=== PATIENT | male | born 1955 | race Caucasian/White ===

== ENCOUNTER 2020-03-19 13:16 | Inpatient (IN) | payer OTHER ==
[~2020-03-19] VITALS: Ht 185.4 cm; Wt 66.8 kg
[2020-03-19 14:01] LABS: BASO % 0.3 % (0.0-1.0); EOS # 0.1 10^3/uL (0.0-0.5); EOS % 1.5 % (0.0-3.0); HEMATOCRIT 36.5 % (42.0-52.0); HEMOGLOBIN 12.2 g/dl (13.5-17.5); LYMPH # 1.2 10^3/uL (1.5-5.0); LYMPH % 13.9 % (24.0-44.0); MEAN CORPUSCULAR HEMOGLOBIN 31.5 pg (27.0-33.0); MEAN CORPUSCULAR HGB CONC 33.4 g/dl (32.0-36.5); MEAN CORPUSCULAR VOLUME 94.3 fl (80.0-96.0); MONO # 0.5 10^3/uL (0.0-0.8); MONO % 5.4 % (0.0-5.0); NEUTROPHILS # 6.9 10^3/uL (1.5-8.5); NEUTROPHILS % 78.7 % (36.0-66.0); PLATELET COUNT, AUTOMATED 316 10^3/uL (150-450); RED BLOOD COUNT 3.87 10^6/uL (4.30-6.10); WHITE BLOOD COUNT 8.7 10^3/uL (4.0-10.0)
[2020-03-19] MEDS ORDERED: LORazepam 2 MG/ML VIAL IV STA ×2 (14:22→16:46)
[2020-03-19 14:32] LABS: ACETAMINOPHEN LEVEL < 2.0 UG/ML (10.0-30.0); ALBUMIN 3.5 GM/DL (3.2-5.2); ALT/SGPT 28 U/L (12-78); BILIRUBIN,DIRECT 0.2 MG/DL (0.0-0.2); BILIRUBIN,TOTAL 0.7 MG/DL (0.2-1.0); BLOOD UREA NITROGEN 21 MG/DL (7-18); CARBON DIOXIDE LEVEL 28 MEQ/L (21-32); CHLORIDE LEVEL 109 MEQ/L (98-107); CK-MB VALUE MASS 5.6 NG/ML (<3.6); CPK CREATINE PHOSPHOKINASE 102 U/L (39-308); CREATININE FOR GFR 0.63 MG/DL (0.70-1.30); ETHYL ALCOHOL (ETHANOL) < 0.003 % (0.000-0.010); GLOMERULAR FILTRATION RATE > 60.0 (>49); GLUCOSE, FASTING 101 MG/DL (70-100); MB/CK RELATIVE INDEX 5.49 (< OR =4); POTASSIUM SERUM 3.9 MEQ/L (3.5-5.1); SALICYLATE LEVEL < 1.7 MG/DL (5.0-30.0); SODIUM LEVEL 140 MEQ/L (136-145); THYROID STIMULATING HORMONE 0.633 uIU/ML (0.358-3.740); TOTAL PROTEIN 6.5 GM/DL (6.4-8.2); TROPONIN I < 0.02 NG/ML (< 0.10)
[2020-03-19 17:14] LABS: AMPHETAMINES LEVEL URINE POSITIVE (NEGATIVE); BARBITURATES URINE NEGATIVE (NEGATIVE); BENZODIAZEPINES URINE NEGATIVE (NEGATIVE); CANNABINOIDS URINE NEGATIVE (NEGATIVE); COCAINE METABOLITE URINE NEGATIVE (NEGATIVE); METHADONE URINE NEGATIVE (NEGATIVE); OPIATES URINE NEGATIVE (NEGATIVE); PHENCYCLIDINE URINE NEGATIVE (NEGATIVE)
--- NOTE | 2020-03-19 17:31 | REPVR ---
PROCEDURE INFORMATION: Exam: MR Head Without Contrast Exam date and time: 03/19/2020 4:41 PM Age: 64 years old Clinical indication: Alteration of consciousness and altered mental status/memory loss; Stupor; Confusion or disorientation; Patient HX: Severe AMS, best images due to pts inability to follow and understand instructions, multiple repeats attempted and PT was medicated multiple times. PT refuses further scanning at this time; Additional info: CVA TECHNIQUE: Imaging protocol: MR of the head without contrast. COMPARISON: CT Head without contrast 03/19/2020 1:35 PM FINDINGS: Limitations: Examination is markedly limited by motion artifact. Brain: No definite restricted diffusion to suggest acute infarct. No evidence of acute intracranial hemorrhage or extra-axial fluid collection. No evidence of mass effect or midline shift. Ventricles: No ventriculomegaly. Bones/joints: Unremarkable. Sinuses: Unremarkable. Mastoid air cells: No mastoid effusion. Orbits: Unremarkable. Soft tissues: Unremarkable. IMPRESSION: No definite MR evidence of acute infarct. Examination limited by motion artifact. Electronically signed by: Dheeraj Savage On 03/19/2020 17:31:09 PM
--- NOTE | 2020-03-19 17:35 | REPVR ---
PROCEDURE INFORMATION: Exam: MR Angiogram Head Without Contrast, Arteries Exam date and time: 03/19/2020 4:41 PM Age: 64 years old Clinical indication: Cognitive deficit; Altered mental status; Patient HX: Severe AMS, best images due to pts inability to follow and understand instructions, multiple repeats attempted and PT was medicated multiple times. PT refuses further scanning at this time; Additional info: CVA TECHNIQUE: Imaging protocol: MR angiogram head without contrast. Exam focused on the arteries. 3D rendering (Not supervised by radiologist): MIP and/or 3D reconstructed images were created by the technologist. COMPARISON: CT Head without contrast 03/19/2020 1:35 PM FINDINGS: Limitations: Examination is markedly limited by motion artifact. Visualized portions of the ACAs are patent. Proximal aspects of the ACAs are very poorly visualized. Visualized portions of the mid to distal MCAs are patent. Proximal aspects of the MCAs are very poorly visualized. Internal carotid arteries are very poorly visualized. Basilar artery appears patent. Intracranial vertebral arteries appear patent. Posterior cerebral arteries are very poorly visualized. IMPRESSION: Markedly limited examination due to motion artifact. Visualized of portions of the intracranial arteries are patent. Electronically signed by: Dheeraj Savage On 03/19/2020 17:36:01 PM
[2020-03-19] MEDS ORDERED: ACETAMINOPHEN TAB 650MG DOSE (2X325MG) PO PRN (22:00)
[2020-03-20] VITALS (11 sets, daily range): BP systolic 125–158; BP diastolic 80–90
[2020-03-20] MEDS: NS 1,000 ML IV SCH ×3 (00:48→10:22)
[2020-03-20 06:16] LABS: HEMATOCRIT 43.1 % (42.0-52.0); HEMOGLOBIN 13.9 g/dl (13.5-17.5); MEAN CORPUSCULAR HEMOGLOBIN 30.5 pg (27.0-33.0); MEAN CORPUSCULAR HGB CONC 32.3 g/dl (32.0-36.5); MEAN CORPUSCULAR VOLUME 94.7 fl (80.0-96.0); PLATELET COUNT, AUTOMATED 329 10^3/uL (150-450); RED BLOOD COUNT 4.55 10^6/uL (4.30-6.10); WHITE BLOOD COUNT 8.1 10^3/uL (4.0-10.0)
[2020-03-20 06:39] LABS: ALBUMIN 3.3 GM/DL (3.2-5.2); ALT/SGPT 23 U/L (12-78); BILIRUBIN,TOTAL 0.9 MG/DL (0.2-1.0); BLOOD UREA NITROGEN 16 MG/DL (7-18); CALCIUM LEVEL 8.6 MG/DL (8.8-10.2); CARBON DIOXIDE LEVEL 25 MEQ/L (21-32); CHLORIDE LEVEL 110 MEQ/L (98-107); CREATININE FOR GFR 0.62 MG/DL (0.70-1.30); GLOMERULAR FILTRATION RATE > 60.0 (>49); GLUCOSE, FASTING 82 MG/DL (70-100); MAGNESIUM LEVEL 2.2 MG/DL (1.8-2.4); POTASSIUM SERUM 3.9 MEQ/L (3.5-5.1); SODIUM LEVEL 141 MEQ/L (136-145); TOTAL PROTEIN 6.2 GM/DL (6.4-8.2)
[2020-03-20] MEDS ORDERED: LORazepam 1 MG TAB PO SCH (09:00)
[2020-03-20] MEDS: LORazepam 2 MG TAB PO PRN ×4 (10:21→20:49)
--- NOTE | 2020-03-20 12:44 | MHCRPDOC ---
[facility] Consultation Consultation DATE OF CONSULTATION: 03/20/20 HPI: Patient I met with is highly distorted and confused. He reportedly was brought in after having methamphetamine intoxication. Reported collateral information gained from girlfriend. Reports increasing bizarre behavior during the last couple of days. Patients scores have been quite high. MEDICAL HISTORY: Past medical and psychiatric history is unknown. FAMILY HISTORY: Family medical history is unknown. SOCIAL HISTORY - LIVING SITUATION: Reportedly, lives with girlfriend and has an ex-. SOCIAL HISTORY - SMOKING: Appears to use methamphetamine, unclear if he uses alcohol. Objective Appearance: Bizzare. Sitting in bed. Poor hygiene. In his underwear. Cognition: Incoherent. Grossly impaired. Doesnt know who the president is. Believes its the 1990s. Unable to engage in any reasonable discussion. Judgement: Poor. Insight: Poor. Assessment F05 Delirium due to known physiological condition F15.921 Other stimulant use, unspecified with intoxication delirium Plan Recommended continued observation and supportive treatment, especially with protocol as Im concerned that patient could have alcohol or similar withdrawals. Patients symptoms do not align with psychotic disorder and should be treated as encephalopathy secondary to substance before being assumed to be such. In terms of his capacity at this time, I do not believe he is at capacity to leave AM due to his robyn and overt delirium. Hes confused and does not have any sense of memory, thus is not able to remember any critical information related to his health care or even his presentation. Additionally, he does not appear to be able to manipulate information rationally or have any ability to abstract due to his confused state at this time, likely secondary to delirium. At this time, I would postulate that he does not have the capacity due to these factors for the name and discharge at this time; however, this is subject to change. He does attempt to leave [facility]. 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 We will follow up intermittently. Vital Signs Vital Signs Date Time Temp Pulse Resp B/P (MAP) Pulse Ox O2 Delivery O2 Flow Rate FiO2 03/20/20 12:40 100 152/90 03/20/20 12:00 98.8 18 100 Room Air Laboratory Data 24H Labs Laboratory Tests 2 03/19/20 13:38: Immature Granulocyte % (Auto) 0.2, Neutrophils (%) (Auto) 78.7H, Lymphocytes (%) (Auto) 13.9L, Monocytes (%) (Auto) 5.4H, Eosinophils (%) (Auto) 1.5, Basophils (%) (Auto) 0.3, Neutrophils # (Auto) 6.9, Lymphocytes # (Auto) 1.2L, Monocytes # (Auto) 0.5, Eosinophils # (Auto) 0.1, Basophils # (Auto) 0.0, Nucleated Red Blood Cells % (auto) 0.0, Anion Gap 3L, Glomerular Filtration Rate > 60.0, Calcium Level 9.0, Total Bilirubin 0.7, Direct Bilirubin 0.2, Aspartate Amino Transf (AST/SGOT) 17, Alanine Aminotransferase (ALT/SGPT) 28, Alkaline Phosphatase 101, Total Creatine Kinase 102, Creatine Kinase MB 5.6H, Creatine Kinase MB Relative Index 5.49H, Troponin I < 0.02, Total Protein 6.5, Albumin 3.5, Albumin/Globulin Ratio 1.2, Thyroid Stimulating Hormone (TSH) 0.633, Salicylates Level < 1.7L, Acetaminophen Level < 2.0L, Ethyl Alcohol Level < 0 .003 03/19/20 15:33: Urine Opiates Screen NEGATIVE, Urine Methadone Screen NEGATIVE, Urine Barbiturates Screen NEGATIVE, Urine Phencyclidine Screen NEGATIVE, Urine Amphetamines Screen POSITIVEH, Urine Benzodiazepines Screen NEGATIVE, Urine Cocaine Metabolite Screen NEGATIVE, Urine Cannabinoids Screen NEGATIVE 03/20/20 05:45: Nucleated Red Blood Cells % (auto) 0.0, Anion Gap 6L, Glomerular Filtration Rate > 60.0, Calcium Level 8.6L, Total Bilirubin 0.9, Aspartate Amino Transf (AST/SGOT) 18, Alanine Aminotransferase (ALT/SGPT) 23, Alkaline Phosphatase 103, Total Protein 6.2L, Albumin 3.3, Albumin/Globulin Ratio 1.1, Magnesium Level 2.2 Home Medications Current Medications Current Medications Medications (Trade) Dose Ordered Sig/Risa Route PRN Reason Start Time Stop Time Status Last Admin Dose Admin Acetaminophen (Tylenol Tab) 650 mg Q4HP PRN PO SYMPTOM RELIEF 03/19/20 22:00 Home Med (Med Rec Complete!) ASDIRECTED XX 03/19/20 23:00 03/19/20 23:00 DC Lorazepam (Ativan) 1 mg BID PO 03/20/20 09:00 03/20/20 09:19 Lorazepam (Ativan) 1 mg STAT STAT IV 03/19/20 16:46 03/19/20 16:47 DC 03/19/20 17:00 Lorazepam (Ativan) 2 mg ASDIRECTED PRN PO SEE PROTOCOL 03/20/20 09:15 03/20/20 12:38 Lorazepam (Ativan) 2 mg STAT STAT IV 03/19/20 14:22 03/19/20 14:23 DC 03/19/20 14:38 Sodium Chloride 1,000 ml @ 100 mls/hr Q10H IV 03/19/20 22:00 03/20/20 10:22 No Active Prescriptions or Reported Meds Allergies Coded Allergies: No Known Allergies (Verified Allergy, Unknown, 03/19/20) ENRICO JIMÉNEZ DO Mar 20, 2020 12:43
[2020-03-20] MEDS ORDERED: LORazepam 2 MG/ML VIAL IV PRN (13:00)
--- NOTE | 2020-03-20 14:11 | IPNPDOC ---
Text Note Date of Service The patient was seen on 03/20/20. NOTE Pt was seen and examined by me this morning with the sitter in the room. He s eemed to be comfortable but with no insight of what is going on. PHYSICAL EXAMINATION: - General: tangential in conversation but directable, speaking in full sentences, AAOx 0 - HEENT: Atraumatic, PERRLA - CVS: normal rhythm - Lungs: Good air entry bilaterally, No appreciable wheezing / rales / rhonchi - Abdomen: Soft, Non-distended, Non-tender - Extremities: No extremity swelling, limbs intact - Skin: Warm - Neuro: Diffuse tremors. Normal strength and sensory throughout. CN II-XII grossly intact. Normal reflex. LABORATORY DATA: See below. IMAGING: none MICROBIOLOGY: Please see below. ASSESSMENT AND PLAN: 1. AMS: Likely drug abuse related. he is not been able to provide a good hi story, seems like he was acting different for the last few weeks as per GF as well. MRI MRA was petar which showed no stroke. UDS was positive for Amphitamines. Psyc has been consulted. he has been put on ativan PRN and q8 1mg scheduled for agitation . Will follow up with psychiatry . 1:1 observation. Monitor on telemetry 2. AMS: other metabolic causes work up initiated . DVT ppx: Lovenox Code status: Full code VS,Fishbone, I+O VS, Fishbone, I+O Laboratory Tests 03/20/20 05:45 Vital Signs Date Time Temp Pulse Resp B/P (MAP) Pulse Ox O2 Delivery O2 Flow Rate FiO2 03/20/20 12:40 100 152/90 03/20/20 12:00 98.8 18 100 Room Air I&O- Last 24 Hours up to 6 AM 03/20/20 06:00 Intake Total 500 ml Balance 500 ml NELSON ARANA MD Mar 20, 2020 14:11
[2020-03-20] MEDS: LORazepam 2 MG/ML VIAL IV SCH (16:00)
[2020-03-21] VITALS (9 sets, daily range): BP systolic 115–161; BP diastolic 68–97
[2020-03-21] MEDS: LORazepam 2 MG/ML VIAL IV SCH ×3 (00:40→16:48)
[2020-03-21] MEDS: THIAMINE 200MG/2ML VIAL (J3411 PER 100MG) IM SCH (09:00)
--- NOTE | 2020-03-21 10:11 | IPNPDOC ---
Text Note Date of Service The patient was seen on 03/21/20. NOTE Pt was seen and examined by me this morning with the sitter in the room. He seemed to be comfortable but with no insight of what is going on. PHYSICAL EXAMINATION: - General: tangential in conversation but directable, speaking in full sentences, AAOx 0 - HEENT: Atraumatic, PERRLA - CVS: normal rhythm - Lungs: Good air entry bilaterally, No appreciable wheezing / rales / rhonchi - Abdomen: Soft, Non-distended, Non-tender - Extremities: No extremity swelling, limbs intact - Skin: Warm - Neuro: Diffuse tremors. Normal strength and sensory throughout. CN II-XII grossly intact. Normal reflex. LABORATORY DATA: See below. IMAGING: none MICROBIOLOGY: Please see below. ASSESSMENT AND PLAN: 1. AMS:Improving. Likely drug abuse related. he is not been able to provide a good history, seems like he was acting different for the last few weeks as per GF as well. MRI MRA was petar which showed no stroke. UDS was positive for Amphitamines. Psyc has been consulted and as per them this is substance abuse metabolic enccephalopathy . he has been put on ativan PRN and q8 1mg scheduled for agitation . Will follow up with psychiatry . 1:1 observation. Monitor on telemetry 2. AMS: other metabolic causes work up initiated . DVT ppx: Lovenox Code status: Full code VS,Fishbone, I+O VS, Fishbone, I+O Vital Signs Date Time Temp Pulse Resp B/P (MAP) Pulse Ox O2 Delivery O2 Flow Rate FiO2 03/21/20 08:00 97.9 100 18 115/73 (87) 97 Room Air I&O- Last 24 Hours up to 6 AM 03/21/20 06:00 Intake Total 840 ml Output Total 675 ml Balance 165 ml NELSON ARANA MD Mar 21, 2020 10:11
[2020-03-21] MEDS: LORazepam 2 MG TAB PO PRN ×3 (11:46→19:33)
[2020-03-21 13:16] LABS: ALBUMIN 3.5 GM/DL (3.2-5.2); ALT/SGPT 27 U/L (12-78); BILIRUBIN,TOTAL 0.5 MG/DL (0.2-1.0); BLOOD UREA NITROGEN 20 MG/DL (7-18); CARBON DIOXIDE LEVEL 26 MEQ/L (21-32); CHLORIDE LEVEL 108 MEQ/L (98-107); CREATININE FOR GFR 0.78 MG/DL (0.70-1.30); GLOMERULAR FILTRATION RATE > 60.0 (>49); GLUCOSE, FASTING 136 MG/DL (70-100); SODIUM LEVEL 137 MEQ/L (136-145); TOTAL PROTEIN 6.6 GM/DL (6.4-8.2); VITAMIN B12 LEVEL 688 PG/ML (247-911)
[2020-03-22] VITALS: BP 148/96
[2020-03-22] MEDS ORDERED: LORazepam 2 MG/ML VIAL As Ordered ONE ×2 (00:12→03:17)
[2020-03-22] MEDS: LORazepam 2 MG/ML VIAL IM PRN ×3 (00:17→11:09)
[2020-03-22 08:00] VITALS: BP 120/77
[2020-03-22 08:19] LABS: HEMATOCRIT 44.2 % (42.0-52.0); HEMOGLOBIN 14.4 g/dl (13.5-17.5); MEAN CORPUSCULAR HGB CONC 32.6 g/dl (32.0-36.5); MEAN CORPUSCULAR VOLUME 95.3 fl (80.0-96.0); PLATELET COUNT, AUTOMATED 358 10^3/uL (150-450); RED BLOOD COUNT 4.64 10^6/uL (4.30-6.10); WHITE BLOOD COUNT 7.9 10^3/uL (4.0-10.0)
[2020-03-22 08:20] VITALS: BP 120/77
[2020-03-22] MEDS: LORazepam 2 MG/ML VIAL IV SCH ×3 (08:25→16:57)
[2020-03-22] MEDS: THIAMINE 200MG/2ML VIAL (J3411 PER 100MG) IM SCH ×2 (08:25→13:19)
[2020-03-22 08:49] LABS: ALBUMIN 3.7 GM/DL (3.2-5.2); ALT/SGPT 26 U/L (12-78); BILIRUBIN,TOTAL 0.8 MG/DL (0.2-1.0); BLOOD UREA NITROGEN 15 MG/DL (7-18); CALCIUM LEVEL 9.1 MG/DL (8.8-10.2); CARBON DIOXIDE LEVEL 27 MEQ/L (21-32); CHLORIDE LEVEL 109 MEQ/L (98-107); CREATININE FOR GFR 0.84 MG/DL (0.70-1.30); GLOMERULAR FILTRATION RATE > 60.0 (>49); GLUCOSE, FASTING 165 MG/DL (70-100); POTASSIUM SERUM 4.2 MEQ/L (3.5-5.1); SODIUM LEVEL 142 MEQ/L (136-145); TOTAL PROTEIN 6.7 GM/DL (6.4-8.2)
--- NOTE | 2020-03-22 10:22 | IPNPDOC ---
Text Note Date of Service The patient was seen on 03/22/20. NOTE Pt was seen and examined by me this morning with the sitter in the room. He s eemed to be comfortable but with no insight of what is going on. PHYSICAL EXAMINATION: - General: tangential in conversation but directable, speaking in full sentences, AAOx 0 - HEENT: Atraumatic, PERRLA - CVS: normal rhythm - Lungs: Good air entry bilaterally, No appreciable wheezing / rales / rhonchi - Abdomen: Soft, Non-distended, Non-tender - Extremities: No extremity swelling, limbs intact - Skin: Warm - Neuro: Diffuse tremors. Normal strength and sensory throughout. CN II-XII grossly intact. Normal reflex. LABORATORY DATA: See below. IMAGING: none MICROBIOLOGY: Please see below. ASSESSMENT AND PLAN: 1. AMS: Likely drug abuse related. he is not been able to provide a good h istory, seems like he was acting different for the last few weeks as per GF as well. MRI MRA was petar which showed no stroke. UDS was positive for Amphitamines. Psyc has been consulted and as per them this is substance abuse metabolic enccephalopathy . he has been put on ativan PRN and q8 1mg scheduled for agitation . Will follow up with psychiatry .Thiamine 100 mg added. 1:1 observation. Monitor on telemetry . Will get EEG as well 2. AMS: other metabolic causes work up initiated . DVT ppx: Lovenox Code status: Full code VS,Fishbone, I+O VS, Fishbone, I+O Laboratory Tests 03/21/20 11:27 03/22/20 07:52 Vital Signs Date Time Temp Pulse Resp B/P (MAP) Pulse Ox O2 Delivery O2 Flow Rate FiO2 03/22/20 08:00 97.9 102 18 120/77 (91) 100 Room Air I&O- Last 24 Hours up to 6 AM 03/22/20 06:00 Intake Total 1680 ml Output Total 0 ml Balance 1680 ml NELSON ARANA MD Mar 22, 2020 10:22
[2020-03-22] MEDS ORDERED: LORazepam 2 MG TAB PO PRN (15:00)
[2020-03-22] MEDS ORDERED: LORazepam 2 MG/ML VIAL IV PRN (15:00)
[2020-03-22 16:00] VITALS: BP 130/74
[2020-03-22] MEDS: THIAMINE 100 MG TAB PO SCH (20:28)
[2020-03-22] MEDS ORDERED: ASPIRIN 325 MG TAB PO STA (20:51)
[2020-03-22] MEDS ORDERED: ATORVASTATIN 20 MG TAB PO SCH (21:00)
[2020-03-22] MEDS ORDERED: haloperidoL 1 MG TAB PO ONE (21:00)
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
[2020-03-22] MEDS ORDERED: THIAMINE 200MG/2ML VIAL (J3411 PER 100MG) IM ONE (23:00)
[2020-03-23] MEDS: LORazepam 2 MG/ML VIAL IV SCH ×2 (00:19→08:08)
[2020-03-23 06:00] VITALS: BP 128/79
[2020-03-23 06:47] LABS: HEMATOCRIT 40.2 % (42.0-52.0); HEMOGLOBIN 13.6 g/dl (13.5-17.5); MEAN CORPUSCULAR HEMOGLOBIN 32.1 pg (27.0-33.0); MEAN CORPUSCULAR HGB CONC 33.8 g/dl (32.0-36.5); MEAN CORPUSCULAR VOLUME 94.8 fl (80.0-96.0); PLATELET COUNT, AUTOMATED 317 10^3/uL (150-450); RED BLOOD COUNT 4.24 10^6/uL (4.30-6.10); WHITE BLOOD COUNT 8.1 10^3/uL (4.0-10.0)
[2020-03-23 07:08] LABS: ALBUMIN 3.5 GM/DL (3.2-5.2); ALT/SGPT 25 U/L (12-78); BILIRUBIN,TOTAL 1.1 MG/DL (0.2-1.0); BLOOD UREA NITROGEN 18 MG/DL (7-18); CALCIUM LEVEL 8.8 MG/DL (8.8-10.2); CARBON DIOXIDE LEVEL 30 MEQ/L (21-32); CHLORIDE LEVEL 108 MEQ/L (98-107); CREATININE FOR GFR 0.77 MG/DL (0.70-1.30); GLOMERULAR FILTRATION RATE > 60.0 (>49); GLUCOSE, FASTING 89 MG/DL (70-100); POTASSIUM SERUM 4.4 MEQ/L (3.5-5.1); SODIUM LEVEL 140 MEQ/L (136-145); TOTAL PROTEIN 6.4 GM/DL (6.4-8.2)
[2020-03-23] MEDS: THIAMINE 100 MG TAB PO SCH (08:09)
[2020-03-23] MEDS ORDERED: FOLIC ACID 1 MG TAB PO SCH (09:00)
[2020-03-23] MEDS ORDERED: ASPIRIN 81 MG ENTERIC TAB PO SCH (09:00)
[2020-03-23] MEDS ORDERED: MULTIVITAMINS/MINERALS THERAP 1 TAB PO SCH (09:00)
[2020-03-23] MEDS ORDERED: LACTULOSE 20 GM/30 ML SYRUP UD PO SCH (09:00)
[2020-03-23] MEDS ORDERED: VITMTA PO (10:31)
[2020-03-23] MEDS ORDERED: THIA100TA PO (10:31)
--- NOTE | 2020-03-23 10:36 | MHIPNPDOC ---
[facility] Progress Note Progress Note DATE OF SERVICE: 03/23/20 patient seen again, still confused but it appears to be more tangential in process, can't engage in any reasonable interview, most medical causes have been excluded, will admit to [facility] on for Unsp Psychosis. Vital Signs Vital Signs Date Time Temp Pulse Resp B/P (MAP) Pulse Ox O2 Delivery O2 Flow Rate FiO2 03/23/20 06:00 98.6 92 18 128/79 (95) 97 Room Air Laboratory Data 24H Labs Laboratory Tests 2 03/22/20 21:00: Lactic Acid Level 0.8, Ammonia 40H 03/23/20 06:05: Nucleated Red Blood Cells % (auto) 0.0, Anion Gap 2L, Glomerular Filtration Rate > 60.0, Calcium Level 8.8, Total Bilirubin 1.1H, Aspartate Amino Transf (AST/SGOT) 23, Alanine Aminotransferase (ALT/SGPT) 25, Alkaline Phosphatase 100, Total Protein 6.4, Albumin 3.5, Albumin/Globulin Ratio 1.2 CBC/BMP Laboratory Tests 03/23/20 06:05 Current Medications Current Medications Medications (Trade) Dose Ordered Sig/Risa Route PRN Reason Start Time Stop Time Status Last Admin Dose Admin Acetaminophen (Tylenol Tab) 650 mg Q4HP PRN PO SYMPTOM RELIEF 03/19/20 22:00 Aspirin (Aspirin) 325 mg STAT STAT PO 03/22/20 20:51 03/22/20 20:54 DC Aspirin (Ecotrin) 162 mg DAILY PO 03/23/20 09:00 03/23/20 09:22 DC 03/23/20 08:08 Atorvastatin Calcium (Lipitor) 20 mg DAILY@2100 PO 03/22/20 21:00 Folic Acid (Folic Acid) 1 mg DAILY PO 03/23/20 09:00 03/23/20 08:09 Home Med (Med Rec Complete!) ASDIRECTED XX 03/19/20 23:00 03/19/20 23:00 DC Lactulose (Cephulac) 15 ml TID PO 03/23/20 09:00 Lorazepam (Ativan) 1 mg BID PO 03/20/20 09:00 03/20/20 12:49 DC 03/20/20 09:19 Lorazepam (Ativan) 1 mg Q8H IV 03/20/20 16:00 03/23/20 08:42 DC 03/23/20 08:08 Lorazepam (Ativan) 1 mg Q8H PO 03/23/20 14:00 Lorazepam (Ativan) 1 mg Q8H PRN IV ANXIETY/AGITATION 03/20/20 13:00 03/20/20 16:34 DC Lorazepam (Ativan) 1 mg STAT STAT IV 03/19/20 16:46 03/19/20 16:47 DC 03/19/20 17:00 Lorazepam (Ativan) 2 mg ASDIRECTED PRN PO SEE PROTOCOL 03/20/20 09:15 03/21/20 20:24 DC 03/21/20 19:33 Lorazepam (Ativan) 2 mg ASDIRECTED PRN PO SEE PROTOCOL 03/22/20 15:00 03/22/20 16:33 DC Lorazepam (Ativan) 2 mg Q2HP PRN IM AGITATION /SEIZURES / CIWA 03/21/20 20:30 03/22/20 14:54 DC 03/22/20 11:09 Lorazepam (Ativan) 2 mg Q2HP PRN IV AGITATION /SEIZURES / CIWA 03/22/20 15:00 03/22/20 20:29 Lorazepam (Ativan) 2 mg STAT STAT IV 03/19/20 14:22 03/19/20 14:23 DC 03/19/20 14:38 Multivitamins (Theragram-M) 1 tab DAILY PO 03/23/20 09:00 03/23/20 08:09 Sodium Chloride 1,000 ml @ 100 mls/hr Q10H IV 03/19/20 22:00 03/20/20 16:34 DC 03/20/20 10:22 Thiamine HCl (Thiamine HCl) 100 mg BID PO 03/22/20 21:00 03/25/20 09:01 03/23/20 08:09 Thiamine HCl (VITAMIN B1 INJection) 100 mg DAILY IM 03/21/20 09:00 03/22/20 15:20 DC 03/22/20 13:19 Allergies Coded Allergies: No Known Allergies (Verified Allergy, Unknown, 03/19/20) ENRICO JIMÉNEZ DO Mar 23, 2020 10:36
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
[2020-03-23] MEDS ORDERED: LORazepam 1 MG TAB PO SCH (14:00)
--- NOTE | 2020-04-05 12:51 | ECGEPIP ---
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
--- NOTE | 2020-04-20 08:20 | REP ---
CHEST X-RAY: SINGLE VIEW HISTORY: Altered mental status. COMPARISON: None. FINDINGS: Lungs are well-inflated and clear. The pleural angles are sharp. Heart size is normal. EKG monitoring electrodes overlie the chest. Pulmonary vasculature is not increased. IMPRESSION: No acute disease. MTDD
--- NOTE | 2020-04-20 08:21 | REP ---
HEAD CT WITHOUT CONTRAST HISTORY: Cerebrovascular accident (CVA) . CT FINDINGS: Preliminary digital boat ride operator radiograph is unremarkable. The bony calvarium is intact. The visualized paranasal sinuses are clear. No intraorbital abnormality is appreciated. On soft tissue window settings, the lateral, 3rd, and 4th ventricular are normal in size and position. Meyer-white differentiation pattern is normal above and below the sensorium. There is no evidence of intracranial hemorrhage, mass, infarction, extra-axial fluid collection, or midline shift. IMPRESSION: Unremarkable noncontrast head CT. MTDD
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
== END 2020-03-23 12:40 | DRG 948 ==
LOC: M ED 13:16 → EDBD 13:16 → M ED INP 21:29 → ENRESERV 21:59 → M PCU 03-20 00:21 → M MS5PR 03-22 15:53 → OBSVTOIN 03-23 10:29 → UNDODISOB 03-23 12:40
PROVIDERS: ADMIT Student in an Organized Health Care Education/Training Program; ATTEND Internal Medicine
DX: R41.82 Altered mental status, unspecified (principal); F15.188 Other stimulant abuse with other stimulant-induced disorder; F17.210 Nicotine dependence, cigarettes, uncomplicated; Z79.899 Other long term (current) drug therapy; Z86.73 Personal history of transient ischemic attack (TIA), and cerebral infarction without residual deficits; Z98.1 Arthrodesis status

== ENCOUNTER 2020-03-23 10:41 | Inpatient (IN) | payer OTHER ==
[~2020-03-23 10:41] MED LIST: THIA100TA PO; VITMTA PO
[2020-03-23] MEDS ORDERED: MAALOX 30 ML SUSP *UDC PO PRN (11:30)
[2020-03-23] MEDS ORDERED: MOM 30ML SUSPENSION UDC PO PRN (11:30)
[2020-03-23] MEDS: OLANZapine ORAL DISINTEGRATING TAB 5MG PO SCH ×2 (13:51→20:46)
[2020-03-23] MEDS ORDERED: LORazepam 2 MG TAB PO STA (15:24)
[2020-03-23 17:17] VITALS: BP 142/81
--- NOTE | 2020-03-23 20:30 | MHHPEPDOC ---
[facility] History & Physical History and Physical DATE OF ADMISSION: Mar 23, 2020 at 12:41 HPI: Steve presents today for concerns regarding his psychiatric evaluation. The patient was met with today. He is still confused and unable to engage in any reasonable interview. He is distorted and unusual and bizzare. He has reportedly been quite aggressive with the nurses. The patients history is quite unknown, however his girlfriend and ex- have reported increasing bizzare behavior changes over the last several weeks. Additionally, he has tested positive for methamphetamine. Theyre unable to discuss whether they have noticed significant drug use. The patient is unable to participate any ROS due to his confused and psychotic state. Living situation: currently lives with a girlfriend last three years. from previous ex-. Substance use: is known to use methamphetamine, however recent drug use cannot be determined due to confused state. MEDICAL HISTORY: On past psychiatric history: no known past medical history of inpatient admission, suicide attempts, previous medication trials, or even psychiatric diagnosis. FAMILY HISTORY: Family history is unknown. Objective Cognition: Impaired, thinks its February 2014. Thought Form: Tangential. Confused, thinks that Augustus Parson is the president. Non-linear. Psychotic. Judgement: Poor. Insight: Poor. Assessment F29 Unspecified psychosis not due to a substance or known physiological condition F15.10 Other stimulant abuse, uncomplicated F05 Delirium due to known physiological condition Plan Patient is to be admitted to inpatient mental health under a 9.39 legal status. EEG was not able to be obtained, although could be helpful if he doesnt clear up. At this time well treat this as psychiatric as medical providers have concluded there is no current medical problems that can occur that can accurately describe his agitation and agitate affect. Treatment priorities: 1. Altered thoughts. 2. Substance use. His estimated length of stay is 3-5 days. Well begin Zyprexa 5 mg BID as most appropriate evidence-based treatment for psychosis in the setting of no previous treatment, especially on inpatient mental health. Discussed with practitioner who will be taking over the case once he reaches the inpatient unit for a warm hand off. Recommend further titration and even EEG if confusion does not resolve precipitously with treatment. Substance-induced psychosis can also include differentials with bath salts and synthetic marijuana, which have been known to cause significant psychotic episodes for long periods of time. His methamphetamine positive tox screen doesnt necessarily preclude these. Vital Signs Vital Signs Date Time Temp Pulse Resp B/P (MAP) Pulse Ox O2 Delivery O2 Flow Rate FiO2 03/23/20 17:17 98.6 98 16 142/81 (101) Medications Scheduled Multivitamins (Thera M Plus Tablet) 1 Each Tablet, 1 TAB PO DAILY Thiamine Hcl (Vitamin B-1) 100 Mg Tablet, 100 MG PO BID Allergies Coded Allergies: No Known Allergies (Verified Allergy, Unknown, 03/19/20) ENRICO JIMÉNEZ DO Mar 23, 2020 20:30
[2020-03-24 06:10] VITALS: BP 121/84
[2020-03-24] MEDS: OLANZapine ORAL DISINTEGRATING TAB 5MG PO SCH ×2 (08:30→20:55)
[2020-03-24] MEDS: OLANZapine ORAL DISINTEGRATING TAB 5MG PO PRN (09:57)
--- NOTE | 2020-03-24 10:43 | MHIPNPDOC ---
[facility] Progress Note Progress Note DATE OF SERVICE: 03/24/20 HISTORY: Patient is a 64 year old Single, Male who states he is from [place], [place]. He is able to state his name and his date of clearly and any verbal communication after becomes inaudible. He is admitted to Inpatient Mental Health for Confusion and Psychotic Symptoms. VITAL SIGNS: See below. NEW TEST RESULTS: CURRENT MEDICATIONS: See below. MENTAL STATUS EXAMINATION: Patient is a 64-year old male, who is very confused today. He has poor communication, he is disheveled and appears to be in mild delirium Speech: Is Clear and Audible with the question, what is your name and date of ? Patient is not able to make a clear complete sentence. His sentences in are inaudible, slurred and garbled throughout the interview. Language skills are Pood. Thought processes including: Disorganized and non-linear. Thought content: Unable to determine Abstract reasoning, and computation: Poor. Description of associations: Unable to determine due to patient's poor communication; speech is garbled Description of abnormal or psychotic thoughts: Patient unable to voice, he is observed to be extremely confused Judgment: Poor Insight: Poor Orientation: Alert and oriented to self and date of Recent and remote memory: Poor Attention span and concentration: Poor Language: Poor Fund of knowledge: Unable to determine, patient is confused Mood: Confused. Affect: Confused, Flat, Blunted, also mildly sedated DIAGNOSES: 1. Unspecified Psychosis 2. r/o Delirium 3. r/o Stimulant Intoxication ASSESSMENT: Patient is ordered a 1:1 sitter for his confusion, unpredictable behaviors, and risk for falls. We will maintain the patient on unit until his confusion is cleared. We will also include his family for discharge planning. Patient has not history of past psychiatric illnesses and admissions. He was positive for Methamphetamines. Patient is alert and oriented to his name only, not to date, time. place or situation. Patient has psychomotor agitation while seated in interview room, moving hands and attempting to stand. He is quite restless at times. He has poor eye contact. Speech is impoverished and garbled. Mood/affect - confused/blunted his orientation, memory, attention and perception is impaired Unable to ascertain suicidality, homicidality, delusions due to impaired thought process Patient is cooperative during the interview but his attention is extremely poor. His insight and judgement is poor MANAGEMENT PLAN: Patient has been started on Zyprexa 5 mg twice daily for psychotic symptoms. TIME SPENT: 30 minutes. Vital Signs Vital Signs Date Time Temp Pulse Resp B/P (MAP) Pulse Ox O2 Delivery O2 Flow Rate FiO2 03/24/20 08:39 Room Air 03/24/20 06:10 98.3 79 18 121/84 (96) 95 Current Medications Current Medications Medications (Trade) Dose Ordered Sig/Risa Route PRN Reason Start Time Stop Time Status Last Admin Dose Admin Acetaminophen (Tylenol Tab) 650 mg Q6HP PRN PO HEADACHE or DISCOMFORT 03/23/20 11:30 Al Hydrox/Mg Hydrox/Simethicone (Mylanta) 30 ml Q4HP PRN PO HEARTBURN/INDIGESTION 03/23/20 11:30 Lorazepam (Ativan) 2 mg STAT STAT PO 03/23/20 15:24 03/23/20 15:25 DC 03/23/20 15:27 Magnesium Hydroxide (Milk Of Magnesia) 30 ml DAILYPRN PRN PO CONSTIPATION 03/23/20 11:30 Olanzapine (ZyPREXA ZYDIS) 5 mg BID PO 03/23/20 09:00 03/24/20 08:30 Olanzapine (ZyPREXA ZYDIS) 5 mg Q4HP PRN PO ANXIETY/AGITATION 03/23/20 11:30 03/24/20 09:57 Trazodone HCl (Desyrel) 50 mg QHSP PRN PO INSOMNIA 03/23/20 11:30 Allergies Coded Allergies: No Known Allergies (Verified Allergy, Unknown, 03/19/20) WAN MEJIA NP Mar 24, 2020 10:43
[2020-03-24] MEDS ORDERED: LORazepam 2 MG TAB PO ONE (11:30)
--- NOTE | 2020-03-24 14:41 | HPEPDOC ---
[facility] [place] Medical History & Physical Date of Admission Mar 23, 2020 Date of Service: Mar 24, 2020 Attending Physician: Shelly West MD History and Physical MEDICINE H&P HISTORY OF PRESENT ILLNESS: Patient is a 64 y/o M with substance abuse history (amphetamines) who was originally brought into [facility] on 03/19/20 after being found driving irrationally, confused and admitted for AMS. MRI/MRA was done which was negative, over the course he had one more CT head which was also negative.UDS was postive for Amphetamines. Oll other metabolic causes of AMS were ruled out. He was initially started on Ativan as per [facility] and now changed to PO now. He was started on thiamine and multivitamins which will be continued on DC to [facility]. Ammonia levels were elevated , but AST, ALT, ALK phos normal. He was given lactulose . EEG was scheduled but was not been able to be completed as he was not cooperative. Psychiatry saw the patient during his hospital stay and the patient was discharged to [facility] on 03/23/20 with diagnosis of unspecified depressive disorder. Upon my medical evaluation of patient while in [facility], he appears disheveled and gets up out of seated position often. He appears agitated at times, does not make eye contact. Poor attention during interview, insight poor. According to nursing can be angry, confrontational at times. He is a very poor historian and will often not answer your questions. He denied chest pain, fevers, chills, n/v/d. He often will be incontinent. He is confused and a high risk for falls, he has a 1:1 sitter in his room. PAST MEDICAL HISTORY: 1. Substance abuse history PAST SURGICAL HISTORY: Patient is a poor historian, unknown SOCIAL HISTORY: Unknown but amphetamine use. Lives in [place], [place] FAMILY HISTORY: Patient is a poor historian, unknown ALLERGIES: Please see below. CURRENT MEDICATIONS: Please see below. PHYSICAL EXAMINATION: VITAL SIGNS:Please see below - General: tangential in conversation but directable, speaking in full sentences, AAOx 0, DISHEVELED - CVS: normal rhythm - Lungs: Good air entry bilaterally, No appreciable wheezing / rales / rhonchi - Abdomen: Soft, Non-distended, Non-tender - Extremities: No extremity swelling, limbs intact - Skin: Warm - Neuro: Diffuse tremors. Normal strength and sensory throughout. CN II-XII grossly intact. Normal reflex. LABORATORY DATA: See below. ASSESSMENT: 64 y/o M admitted to [facility] for unspecified depressive episode. PLAN: 1. Unspecified depressive episode. Plan per psychiatry. 2. Unspecified Psychosis. Plan per psychiatry. 3. Delirium. Plan per psychiatry. 4. Substance abuse, amphetamines. Plan per psychiatry. 4. Unsteadiness likely 2/2 to shuffling gait? Unknown baseline. Parkinson's-like symptom, monitor while on antipsychotics for worsening neurological symptoms. ativan PRN DISPOSITION: It appears that the patient has been medically optimized outside of his psychiatric illness. At this time will sign off. If we are needed going forward, please do not hesitate to contact us again. Vital Signs Vital Signs Date Time Temp Pulse Resp B/P (MAP) Pulse Ox O2 Delivery O2 Flow Rate FiO2 03/24/20 08:39 Room Air 03/24/20 06:10 98.3 79 18 121/84 (96) 95 Home Medications Scheduled Multivitamins (Thera M Plus Tablet) 1 Each Tablet, 1 TAB PO DAILY Thiamine Hcl (Vitamin B-1) 100 Mg Tablet, 100 MG PO BID Allergies Coded Allergies: No Known Allergies (Verified Allergy, Unknown, 03/19/20) A-FIB/CHADSVASC A-FIB History Current/History of A-Fib/PAF?: No Current PO Anticoag Therapy: No Age/Risk Factor Scoring CHADSVASC: CHADSVASC Response (Comments) Value Age Risk Factor Age < 65 years old 0 Gender Risk Factor Male 0 Hx of CHF No 0 Hx of HTN No 0 Hx of Stroke/TIA/or VTE No 0 Hx of Diabetes No 0 Hx of Vascular Disease No 0 Total 0 Treatment Treatment ordered: NONE Current Medications Current Medications Medications (Trade) Dose Ordered Sig/Risa Route PRN Reason Start Time Stop Time Status Last Admin Dose Admin Acetaminophen (Tylenol Tab) 650 mg Q6HP PRN PO HEADACHE or DISCOMFORT 03/23/20 11:30 Al Hydrox/Mg Hydrox/Simethicone (Mylanta) 30 ml Q4HP PRN PO HEARTBURN/INDIGESTION 03/23/20 11:30 Lorazepam (Ativan) 2 mg STAT STAT PO 03/23/20 15:24 03/23/20 15:25 DC 03/23/20 15:27 Magnesium Hydroxide (Milk Of Magnesia) 30 ml DAILYPRN PRN PO CONSTIPATION 03/23/20 11:30 Olanzapine (ZyPREXA ZYDIS) 5 mg BID PO 03/23/20 09:00 03/24/20 08:30 Olanzapine (ZyPREXA ZYDIS) 5 mg Q4HP PRN PO ANXIETY/AGITATION 03/23/20 11:30 03/24/20 09:57 Trazodone HCl (Desyrel) 50 mg QHSP PRN PO INSOMNIA 03/23/20 11:30 Shelly West MD Mar 24, 2020 14:41
[2020-03-24 16:55] VITALS: BP 137/84
[2020-03-24] MEDS: traZODone 50 MG TAB PO PRN (20:55)
[2020-03-24] MEDS: CEPACOL LOZENGE PO PRN (23:35)
[2020-03-25] MEDS: traZODone 50 MG TAB PO ONE ×2 (03:00→03:26)
[2020-03-25] MEDS: CHLORASEPTIC SPRAY MT PRN (03:31)
[2020-03-25 06:30] VITALS: BP 133/79
[2020-03-25] MEDS: OLANZapine ORAL DISINTEGRATING TAB 5MG PO SCH ×2 (08:13→20:22)
[2020-03-25] MEDS: OLANZapine ORAL DISINTEGRATING TAB 5MG PO PRN (13:00)
[2020-03-25 14:00] VITALS: BP 129/86
[2020-03-25] MEDS ORDERED: diphenhydrAMINE 25MG CAP PO SCH (18:00)
[2020-03-25] MEDS: diphenhydrAMINE 25MG CAP PO PRN (18:03)
[2020-03-25] MEDS: CEPACOL LOZENGE PO PRN (18:04)
[2020-03-25] MEDS: traZODone 50 MG TAB PO PRN (20:23)
[2020-03-26] MEDS: ACETAMINOPHEN TAB 650MG DOSE (2X325MG) PO PRN ×2 (07:01→21:35)
[2020-03-26] MEDS: OLANZapine ORAL DISINTEGRATING TAB 5MG PO SCH ×2 (09:13→21:33)
[2020-03-26] MEDS: OLANZapine ORAL DISINTEGRATING TAB 5MG PO PRN (18:04)
[2020-03-26 18:41] VITALS: BP 118/80
[2020-03-26] MEDS: traZODone 50 MG TAB PO PRN (21:34)
[2020-03-26] MEDS: diphenhydrAMINE 25MG CAP PO PRN (21:34)
[2020-03-27 06:35] VITALS: BP 118/78
[2020-03-27] MEDS: OLANZapine ORAL DISINTEGRATING TAB 5MG PO SCH ×2 (09:36→20:25)
[2020-03-27] MEDS ORDERED: MULTIVITAMINS/MINERALS THERAP 1 TAB PO ONE (11:00)
[2020-03-27] MEDS ORDERED: THIAMINE 100 MG TAB PO ONE (11:00)
--- NOTE | 2020-03-27 11:04 | MHIPNPDOC ---
[facility] Progress Note Progress Note DATE OF SERVICE: 03/27/20 HISTORY: Patient is a 64 year old Male who presented to [facility] as a direct admit from medical with symptoms of psychosis or delirium. He was admitted to medical for Altered Mental Status and subsequently admitted to [facility] for continued confusion. VITAL SIGNS: See below. NEW TEST RESULTS: New Labs ordered CURRENT MEDICATIONS: See below. MENTAL STATUS EXAMINATION: Patient is a 64-year old male, who is presenting with confusion and restlessness. He is observed with psychomotor agitation and restlessness. Speech: Is slurred and garbled. Language skills are poor Thought processes including: disorganized, non-linear, scattered Thought content: Unable to determine, patient is confused. Abstract reasoning, and computation: poor. Description of associations: unable to determine, patient is confused Description of abnormal or psychotic thoughts: unable to determine patient is confused, although patient is able to communicate that he would like to be discharged Judgment: poor Insight: poor Orientation: Alert and oriented to self only. Recent and remote memory: poor Attention span and concentration: poor Language: poor Fund of knowledge: unable to ascertain Mood: confused. Affect: flat, restless DIAGNOSES: 1. Unspecified Psychosis and other psychotic disorders 2. Stimulant Use Disorder 3. Delirium ASSESSMENT: Patient is not alert and oriented, remains confused, poor articulation. He is not stable for discharge. He is unable to communicate clearly although is observed to be very upset that he is still admitted and gets very upset when his discharge date is not discussed. I strongly reinforced with the patient that he is not stable and that due to his current presentation that he is not safe. He becomes very irritated with this underwriter mortgage loan and states "I have bills to pay" Patient appears to have improved cognition but still is observed as restless with moderate confusion. MANAGEMENT PLAN: Patient is not safe for discharge at this time. Labs ordered, EEG ordered, but patient is unable to sit still long enough for this procedure. Medications will continue. TIME SPENT: 30 minutes. Vital Signs Vital Signs Date Time Temp Pulse Resp B/P (MAP) Pulse Ox O2 Delivery O2 Flow Rate FiO2 03/27/20 06:35 97.8 90 18 118/78 (91) 03/26/20 18:41 91 Room Air Current Medications Current Medications Medications (Trade) Dose Ordered Sig/Risa Route PRN Reason Start Time Stop Time Status Last Admin Dose Admin Acetaminophen (Tylenol Tab) 650 mg Q6HP PRN PO HEADACHE or DISCOMFORT 03/23/20 11:30 03/26/20 21:35 Al Hydrox/Mg Hydrox/Simethicone (Mylanta) 30 ml Q4HP PRN PO HEARTBURN/INDIGESTION 03/23/20 11:30 Cetylpyridinium Chloride (Cepacol) 1 joseph Q8HP PRN PO SORE THROAT 03/24/20 23:30 03/25/20 18:04 Diphenhydramine HCl (Benadryl) 25 mg Q6H PO 03/25/20 18:00 03/25/20 16:39 DC Diphenhydramine HCl (Benadryl) 25 mg Q6HP PRN PO ITCHING 03/25/20 16:45 03/26/20 21:34 Lorazepam (Ativan) 2 mg STAT STAT PO 03/23/20 15:24 03/23/20 15:25 DC 03/23/20 15:27 Magnesium Hydroxide (Milk Of Magnesia) 30 ml DAILYPRN PRN PO CONSTIPATION 03/23/20 11:30 Olanzapine (ZyPREXA ZYDIS) 5 mg BID PO 03/23/20 09:00 03/27/20 09:36 Olanzapine (ZyPREXA ZYDIS) 5 mg Q4HP PRN PO ANXIETY/AGITATION 03/23/20 11:30 03/26/20 18:04 Phenol (Chloraseptic [place]) 1 spray Q12HP PRN MT SORE THROAT 03/25/20 04:00 03/25/20 03:31 Trazodone HCl (Desyrel) 50 mg QHSP PRN PO INSOMNIA 03/23/20 11:30 03/26/20 21:34 Allergies Coded Allergies: No Known Allergies (Verified Allergy, Unknown, 03/19/20) WAN MEJIA NP Mar 27, 2020 11:04
[2020-03-27] MEDS: FOLIC ACID 1 MG TAB PO SCH (11:24)
[2020-03-27 11:42] LABS: BASO % 0.5 % (0.0-1.0); EOS # 0.2 10^3/uL (0.0-0.5); EOS % 2.8 % (0.0-3.0); HEMATOCRIT 40.3 % (42.0-52.0); LYMPH # 1.5 10^3/uL (1.5-5.0); LYMPH % 22.9 % (24.0-44.0); MEAN CORPUSCULAR HGB CONC 32.3 g/dl (32.0-36.5); MEAN CORPUSCULAR VOLUME 96.2 fl (80.0-96.0); MONO # 0.4 10^3/uL (0.0-0.8); MONO % 6.1 % (0.0-5.0); NEUTROPHILS # 4.4 10^3/uL (1.5-8.5); NEUTROPHILS % 67.4 % (36.0-66.0); PLATELET COUNT, AUTOMATED 305 10^3/uL (150-450); RED BLOOD COUNT 4.19 10^6/uL (4.30-6.10); WHITE BLOOD COUNT 6.5 10^3/uL (4.0-10.0)
[2020-03-27 12:14] LABS: ALBUMIN 3.7 GM/DL (3.2-5.2); ALT/SGPT 23 U/L (12-78); BILIRUBIN,TOTAL 0.7 MG/DL (0.2-1.0); BLOOD UREA NITROGEN 23 MG/DL (7-18); CALCIUM LEVEL 8.6 MG/DL (8.8-10.2); CARBON DIOXIDE LEVEL 31 MEQ/L (21-32); CHLORIDE LEVEL 110 MEQ/L (98-107); CREATININE FOR GFR 0.77 MG/DL (0.70-1.30); GLOMERULAR FILTRATION RATE > 60.0 (>49); GLUCOSE, FASTING 109 MG/DL (70-100); POTASSIUM SERUM 4.5 MEQ/L (3.5-5.1); SODIUM LEVEL 142 MEQ/L (136-145); TOTAL PROTEIN 6.6 GM/DL (6.4-8.2)
[2020-03-27] MEDS ORDERED: LIDOCAINE 5% (LIDODERM) PATCH TD ONE (14:15)
[2020-03-27] MEDS ORDERED: LORazepam 2 MG TAB PO ONE (14:15)
[2020-03-27 17:59] VITALS: BP 124/68
[2020-03-27] MEDS: diphenhydrAMINE 25MG CAP PO PRN (19:49)
[2020-03-27] MEDS: **NOTE PATIENT COMMENT** MISC XX SCH ×2 (20:25→21:00)
[2020-03-27] MEDS ORDERED: **NOTE PATIENT COMMENT** MISC XX SCH (21:00)
[2020-03-28 06:31] VITALS: BP 166/79
--- NOTE | 2020-03-28 08:40 | MHIPNPDOC ---
[facility] Progress Note Progress Note DATE OF SERVICE: 03/28/20 HISTORY: Patient is a 64 year old male who was directly admitted from [facility] to [facility] for psychotic symptoms and Delirium for what may have been a stimulant (Zuleima) intoxication. Patient was admitted on 03/23/20 and seen by consulting psychiatrist Dr. Austin. VITAL SIGNS: See below. NEW TEST RESULTS: See results. Ammonia Level is within normal limits. CURRENT MEDICATIONS: See below. MENTAL STATUS EXAMINATION: Patient is a 64-year old male, who continues to be confused. He is communicati ng better. Speech: Is garbled at times, very low and soft. He at times makes non-sensical statements, but his cognition and command of language is improving but only slightly. Most of the time, he whispers his answers Language skills are poor to fair at times. Thought processes including: non-linear, disorganized. Thought content: Patient denies depression but reports anxiety. He is observed very confused. Abstract reasoning, and computation: poor Description of associations: unable to ascertain, patient is often confused Description of abnormal or psychotic thoughts: Patient is confused. Judgment: poor Insight: poor Orientation: Patient is alert and oriented to self and that he is currently in a hospital. He is unable to state which hospital. And he cannot articulate that he is in a hospital, he will nod his head yes when asked if he is in a hospital Recent and remote memory: poor Attention span and concentration: poor Language: poor Fund of knowledge: poor Mood: Confused. Affect: Anxious, flat DIAGNOSES: 1. Unspecified Schizophrenia and Other Psychotic Disorders 2. Stimulant Use Disorder 3. Delirium ASSESSMENT: Met with patient in an interview room. Patient is confused. 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 States that lives with his Nita (according to reports, Nita is his ex- and he lives with his girlfriend) Patient states that he has 2 sons and 2 daughters. When I discuss with him that he is not going to be discharged today, he becomes irritable and I reinforced with him that he is not stable and that he remains confused. During interview, patient had a styrofoam cup with a small amount of coffee in it. He states in a low, whispered voice, "This coffee tastes like shit." He then attempts to throw it out into a paper bag. I asked the patient to not throw the coffee into a paper bag. We left the room, patient looked at the rails in the hallway and dumped his coffee between the rail and the wall. He realized that this was not a sink but walked away. He has poor thought process and is cognitively poor in his thinking. Patient is not stable discharge today MANAGEMENT PLAN: Medications ordered: Thiamine 100 mg daily, Folic Acid 1 mg daily, Multivitamin 1 tablet daily, Ativan 0.5 mg three times daily. TIME SPENT: 20 minutes. Vital Signs Vital Signs Date Time Temp Pulse Resp B/P (MAP) Pulse Ox O2 Delivery O2 Flow Rate FiO2 03/28/20 06:31 98.0 108 18 166/79 (108) 03/27/20 11:00 Room Air 03/26/20 18:41 91 Laboratory Data 24H Labs Laboratory Tests 2 03/27/20 11:22: Immature Granulocyte % (Auto) 0.3, Neutrophils (%) (Auto) 67.4H, Lymphocytes (%) (Auto) 22.9L, Monocytes (%) (Auto) 6.1H, Eosinophils (%) (Auto) 2.8, Basophils (%) (Auto) 0.5, Neutrophils # (Auto) 4.4, Lymphocytes # (Auto) 1.5, Monocytes # (Auto) 0.4, Eosinophils # (Auto) 0.2, Basophils # (Auto) 0.0, Nucleated Red Blood Cells % (auto) 0.0, Anion Gap 1L, Glomerular Filtration Rate > 60.0, Calcium Level 8.6L, Total Bilirubin 0.7, Aspartate Amino Transf (AST/SGOT) 17, Alanine Aminotransferase (ALT/SGPT) 23, Alkaline Phosphatase 92, Ammonia < 10, Total Protein 6.6, Albumin 3.7, Albumin/Globulin Ratio 1.3, Thyroid Stimulating Hormone (TSH) 1.070 CBC/BMP Laboratory Tests 03/27/20 11:22 Current Medications Current Medications Medications (Trade) Dose Ordered Sig/Risa Route PRN Reason Start Time Stop Time Status Last Admin Dose Admin Acetaminophen (Tylenol Tab) 650 mg Q6HP PRN PO HEADACHE or DISCOMFORT 03/23/20 11:30 03/26/20 21:35 Al Hydrox/Mg Hydrox/Simethicone (Mylanta) 30 ml Q4HP PRN PO HEARTBURN/INDIGESTION 8/27/20 11:30 Cetylpyridinium Chloride (Cepacol) 1 joseph Q8HP PRN PO SORE THROAT 03/24/20 23:30 03/25/20 18:04 Diphenhydramine HCl (Benadryl) 25 mg Q6H PO 03/25/20 18:00 03/25/20 16:39 DC Diphenhydramine HCl (Benadryl) 25 mg Q6HP PRN PO ITCHING 03/25/20 16:45 03/27/20 19:49 Folic Acid (Folic Acid) 1 mg DAILY PO 03/27/20 09:00 03/27/20 11:24 Folic Acid (Folic Acid) 1 mg DAILY PO 03/28/20 09:00 03/28/20 08:21 DC Lidocaine (Lidoderm Patch) 1 patch DAILY TD 03/28/20 09:00 Lorazepam (Ativan) 0.5 mg TID PO 03/28/20 09:00 Lorazepam (Ativan) 2 mg STAT STAT PO 03/23/20 15:24 03/23/20 15:25 DC 03/23/20 15:27 Magnesium Hydroxide (Milk Of Magnesia) 30 ml DAILYPRN PRN PO CONSTIPATION 03/23/20 11:30 Multivitamins (Theragram-M) 1 tab DAILY PO 03/28/20 09:00 Non-Formulary Medication ( See Comment Field Below ) 1 DAILY@ XX 03/27/20 21:00 03/27/20 21:00 Non-Formulary Medication ( See Comment Field Below ) REMOVE LIDODERM PATCH DAILY@ XX 03/27/20 21:00 UNV Olanzapine (ZyPREXA ZYDIS) 5 mg BID PO 03/23/20 09:00 03/27/20 20:25 Olanzapine (ZyPREXA ZYDIS) 5 mg Q4HP PRN PO ANXIETY/AGITATION 03/23/20 11:30 03/26/20 18:04 Phenol (Chloraseptic [place]) 1 spray Q12HP PRN MT SORE THROAT 03/25/20 04:00 03/25/20 03:31 Thiamine HCl (Thiamine HCl) 100 mg DAILY PO 03/28/20 09:00 Trazodone HCl (Desyrel) 50 mg QHSP PRN PO INSOMNIA 03/23/20 11:30 03/26/20 21:34 Allergies Coded Allergies: No Known Allergies (Verified Allergy, Unknown, 03/19/20) WAN MEJIA NP Mar 28, 2020 08:40
[2020-03-28] MEDS: MULTIVITAMINS/MINERALS THERAP 1 TAB PO SCH (08:43)
[2020-03-28] MEDS: LIDOCAINE 5% (LIDODERM) PATCH TD SCH (08:43)
[2020-03-28] MEDS: OLANZapine ORAL DISINTEGRATING TAB 5MG PO SCH ×2 (08:43→20:11)
[2020-03-28] MEDS: LORazepam 0.5 MG TAB PO SCH ×3 (08:43→20:11)
[2020-03-28] MEDS: FOLIC ACID 1 MG TAB PO SCH (08:43)
[2020-03-28] MEDS: THIAMINE 100 MG TAB PO SCH (08:43)
[2020-03-28] MEDS ORDERED: FOLIC ACID 1 MG TAB PO SCH (09:00)
[2020-03-28 17:58] VITALS: BP 126/68
[2020-03-28] MEDS: traZODone 50 MG TAB PO PRN (20:11)
[2020-03-28] MEDS: **NOTE PATIENT COMMENT** MISC XX SCH (21:58)
[2020-03-29] MEDS: OLANZapine ORAL DISINTEGRATING TAB 5MG PO PRN ×2 (01:07→21:52)
[2020-03-29] MEDS: diphenhydrAMINE 25MG CAP PO PRN (01:08)
[2020-03-29 07:07] VITALS: BP 143/91
[2020-03-29] MEDS: LORazepam 0.5 MG TAB PO SCH ×3 (08:52→20:10)
[2020-03-29] MEDS: OLANZapine ORAL DISINTEGRATING TAB 5MG PO SCH (08:52)
[2020-03-29] MEDS: FOLIC ACID 1 MG TAB PO SCH (08:52)
[2020-03-29] MEDS: LIDOCAINE 5% (LIDODERM) PATCH TD SCH (08:52)
[2020-03-29] MEDS: MULTIVITAMINS/MINERALS THERAP 1 TAB PO SCH (08:52)
[2020-03-29] MEDS: THIAMINE 100 MG TAB PO SCH (08:52)
[2020-03-29] MEDS: ACETAMINOPHEN TAB 650MG DOSE (2X325MG) PO PRN (10:21)
[2020-03-29] MEDS: haloperidoL 5 MG TAB PO SCH ×2 (11:53→20:10)
--- NOTE | 2020-03-29 11:54 | MHIPNPDOC ---
[facility] Progress Note Progress Note DATE OF SERVICE: 03/29/20 HISTORY: Patient is a 64 year old Single Male who was admitted for psychosis or delirium. Patient has a reported history of Substance Use. VITAL SIGNS: See below. NEW TEST RESULTS: CURRENT MEDICATIONS: See below. MENTAL STATUS EXAMINATION: Patient is a 64-year old male, who is very confused. He appears older than his stated age. His hygiene and grooming is unkempt and disheveled. He makes fl eeting eye contact Speech: Is garbled and slurred. Language skills are poor. Thought processes including: disorganized and scatted. He is very confused. He attempts to confabulate at times when asked questions but is unable to finish a complete sentence. Many times he makes non-sensical statements. He is blocked most times. Thought content: He is not observed with any abnormal thought content. Abstract reasoning, and computation: poor. Description of associations: negative. Description of abnormal or psychotic thoughts: Confused Judgment: None Insight: Limited Orientation: Alert to self only Recent and remote memory: Poor Attention span and concentration: Poor Language: Poor Fund of knowledge: Poor Mood: Anxious/confused. Affect: anxious/blunted/flat DIAGNOSES: 1. Unspecified Schizophrenia and other Psychotic Disorders 2. Delirium due to know physiological condition 3. Stimulant Use Disorder ASSESSMENT: Patient observed in my office today with continued confusion. He at times is unable to articulate and has poor communication. He does not complete a sentence and is not able to answer any questions appropriately. He is only alert and oriented to himself and not to time, place or situation. He attempts to write during the interview. He write several letters correctly but did not write an actual word. He scribbled lines on a page and attempts to read it but he is often observed with poor memory, at times he has poor language skills and poor problem solving skills. He needs much redirecting with regards to simple tasks such as using the bathroom. During my interview, patient attempted to leave the room. When asked what he needed he stated, "Bathroom" He used the bathroom appropriately but when he attempted to wash his hands he poured Coca- Cola on his hands. He displays a moderate amount of disinhibition at times and is often irritable and frustrated with staff when he is redirected. He does show some improvement in that he does have periods of lucidity, this is minimal. He is often observed irritable and moderate agitation because he wants to leave the unit and the sitters following him frustrates him. MANAGEMENT PLAN: Stop Zyprexa and Trazodone. Patient to start Haldol 5 mg twice daily and Benadryl 50 mg at HS. TIME SPENT: 30 minutes. Vital Signs Vital Signs Date Time Temp Pulse Resp B/P (MAP) Pulse Ox O2 Delivery O2 Flow Rate FiO2 03/29/20 09:00 Room Air 03/29/20 07:07 98.0 100 18 143/91 (108) 03/26/20 18:41 91 Current Medications Current Medications Medications (Trade) Dose Ordered Sig/Risa Route PRN Reason Start Time Stop Time Status Last Admin Dose Admin Acetaminophen (Tylenol Tab) 650 mg Q6HP PRN PO HEADACHE or DISCOMFORT 03/23/20 11:30 03/29/20 10:21 Al Hydrox/Mg Hydrox/Simethicone (Mylanta) 30 ml Q4HP PRN PO HEARTBURN/INDIGESTION 03/23/20 11:30 Cetylpyridinium Chloride (Cepacol) 1 joseph Q8HP PRN PO SORE THROAT 03/24/20 23:30 03/25/20 18:04 Diphenhydramine HCl (Benadryl) 25 mg Q6H PO 03/25/20 18:00 03/25/20 16:39 DC Diphenhydramine HCl (Benadryl) 25 mg Q6HP PRN PO ITCHING 03/25/20 16:45 03/29/20 01:08 Diphenhydramine HCl (Benadryl) 50 mg QHSP PRN PO INSOMNIA 03/29/20 11:15 Folic Acid (Folic Acid) 1 mg DAILY PO 03/27/20 09:00 03/29/20 08:52 Folic Acid (Folic Acid) 1 mg DAILY PO 03/28/20 09:00 03/28/20 08:21 DC Haloperidol (Haldol) 5 mg BID PO 03/29/20 21:00 UNV Lidocaine (Lidoderm Patch) 1 patch DAILY TD 03/28/20 09:00 03/29/20 08:52 Lorazepam (Ativan) 0.5 mg TID PO 03/28/20 09:00 03/29/20 08:52 Lorazepam (Ativan) 2 mg STAT STAT PO 03/23/20 15:24 03/23/20 15:25 DC 03/23/20 15:27 Magnesium Hydroxide (Milk Of Magnesia) 30 ml DAILYPRN PRN PO CONSTIPATION 03/23/20 11:30 Multivitamins (Theragram-M) 1 tab DAILY PO 03/28/20 09:00 03/29/20 08:52 Non-Formulary Medication ( See Comment Field Below ) 1 DAILY@ XX 03/27/20 21:00 03/28/20 21:58 Non-Formulary Medication ( See Comment Field Below ) REMOVE LIDODERM PATCH DAILY@ XX 03/27/20 21:00 UNV Olanzapine (ZyPREXA ZYDIS) 5 mg BID PO 03/23/20 09:00 03/29/20 11:14 DC 03/29/20 08:52 Olanzapine (ZyPREXA ZYDIS) 5 mg Q4HP PRN PO ANXIETY/AGITATION 03/23/20 11:30 03/29/20 01:07 Phenol (Chloraseptic [place]) 1 spray Q12HP PRN MT SORE THROAT 03/25/20 04:00 03/25/20 03:31 Thiamine HCl (Thiamine HCl) 100 mg DAILY PO 03/28/20 09:00 03/29/20 08:52 Trazodone HCl (Desyrel) 50 mg QHSP PRN PO INSOMNIA 03/23/20 11:30 03/29/20 11:14 DC 03/28/20 20:11 Allergies Coded Allergies: No Known Allergies (Verified Allergy, Unknown, 03/19/20) WAN MEJIA NP Mar 29, 2020 11:54
[2020-03-29 18:01] VITALS: BP 120/67
[2020-03-29] MEDS: **NOTE PATIENT COMMENT** MISC XX SCH (21:00)
[2020-03-29] MEDS: diphenhydrAMINE 50MG CAP PO PRN (21:52)
[2020-03-30] MEDS: LORazepam 0.5 MG TAB PO SCH ×3 (09:00→20:42)
[2020-03-30] MEDS: MULTIVITAMINS/MINERALS THERAP 1 TAB PO SCH (09:18)
[2020-03-30] MEDS: FOLIC ACID 1 MG TAB PO SCH (09:18)
[2020-03-30] MEDS: haloperidoL 5 MG TAB PO SCH ×2 (09:18→20:41)
[2020-03-30] MEDS: THIAMINE 100 MG TAB PO SCH (09:19)
[2020-03-30] MEDS: LIDOCAINE 5% (LIDODERM) PATCH TD SCH (09:19)
--- NOTE | 2020-03-30 10:43 | MHIPNPDOC ---
[facility] Progress Note Progress Note DATE OF SERVICE: 03/30/20 HISTORY: Patient admitted to Psychiatry for Psychotic Behaviors and Delirium. It is suspected that this was Methamphetamine Toxicity although reports from his family is that he has a long polysubstance use history. VITAL SIGNS: See below. NEW TEST RESULTS: CURRENT MEDICATIONS: See below. MENTAL STATUS EXAMINATION: Patient is a 64-year old male, who is admitted to psychiatry for psychotic behaviors and delirium. He presents very restless, unable to sit still in a chair or even in bed. He has severe psychomotor agitation, with all limbs moving constantly. He displays poor cognitive functioning. Speech: Is low, does not complete full sentences, often cannot answer questions, at times will attempt to confabulate. Language skills are Poor, Poor articulation Thought processes including: Scatter, disorganized, Thought content: None, patient does not appear depressed, he is anxious and at times agitated. He voices no self harm thoughts. He is irritable at times with his sitters, not wanting to be followed Abstract reasoning, and computation: Poor. Description of associations: None Description of abnormal or psychotic thoughts: None Judgment: Poor Insight: Poor Orientation: Alert to self and his date of . When asked what year it was he stated "1978, 1979, 1989" Recent and remote memory: Extremely poor Attention span and concentration: Poor Language: Poor Fund of knowledge: Poor Mood: Irritable Affect: Flat DIAGNOSES: 1. Unspecified Schizophrenia and Other Psychotic Disorder 2. Delirium 3. Methamphetamine Use Disorder ASSESSMENT: Per the staff, patient is at times extremely agitated, knocking continuously at the nurses station demanding to know where is truck is. He displays moderate agitation and is requesting to be discharged. His speech and articulation is still poor. Patient displays many dementia characteristics; Poor memory, difficulty concentrating, has trouble completing tasks such as feeding himself - was observed trying to eat his salad with a fork yesterday, he requires assistance with most activities, he cannot remember names of family members, date or month and has difficulty speaking with fluidity. MANAGEMENT PLAN: Continue sitter for his risk of falls and unpredictable behaviors. Patient is not stable. Maintain him on current medication regimen. We will consider whether patient's discharge and treatment may be a higher level of care such as long term. He is however making some mild improvements in speech. His demand for being discharged appears to show that he has some returning cognitive functioning TIME SPENT: 30 minutes. Vital Signs Vital Signs Date Time Temp Pulse Resp B/P (MAP) Pulse Ox O2 Delivery O2 Flow Rate FiO2 03/29/20 18:01 99.1 83 18 120/67 (84) 03/29/20 09:00 Room Air 03/26/20 18:41 91 Current Medications Current Medications Medications (Trade) Dose Ordered Sig/Risa Route PRN Reason Start Time Stop Time Status Last Admin Dose Admin Acetaminophen (Tylenol Tab) 650 mg Q6HP PRN PO HEADACHE or DISCOMFORT 03/23/20 11:30 03/29/20 10:21 Al Hydrox/Mg Hydrox/Simethicone (Mylanta) 30 ml Q4HP PRN PO HEARTBURN/INDIGESTION 03/23/20 11:30 Cetylpyridinium Chloride (Cepacol) 1 joseph Q8HP PRN PO SORE THROAT 03/24/20 23:30 03/25/20 18:04 Diphenhydramine HCl (Benadryl) 25 mg Q6H PO 03/25/20 18:00 03/25/20 16:39 DC Diphenhydramine HCl (Benadryl) 25 mg Q6HP PRN PO ITCHING 03/25/20 16:45 03/29/20 01:08 Diphenhydramine HCl (Benadryl) 50 mg QHSP PRN PO INSOMNIA 03/29/20 11:15 03/29/20 21:52 Folic Acid (Folic Acid) 1 mg DAILY PO 03/27/20 09:00 03/30/20 09:18 Folic Acid (Folic Acid) 1 mg DAILY PO 03/28/20 09:00 03/28/20 08:21 DC Haloperidol (Haldol) 5 mg BID PO 03/29/20 09:00 03/30/20 09:18 Lidocaine (Lidoderm Patch) 1 patch DAILY TD 03/28/20 09:00 03/30/20 09:19 Lorazepam (Ativan) 0.5 mg TID PO 03/28/20 09:00 03/30/20 09:00 Lorazepam (Ativan) 2 mg STAT STAT PO 03/23/20 15:24 03/23/20 15:25 DC 03/23/20 15:27 Magnesium Hydroxide (Milk Of Magnesia) 30 ml DAILYPRN PRN PO CONSTIPATION 03/23/20 11:30 Multivitamins (Theragram-M) 1 tab DAILY PO 03/28/20 09:00 03/30/20 09:18 Non-Formulary Medication ( See Comment Field Below ) 1 DAILY@21 XX 03/27/20 21:00 03/29/20 21:00 Non-Formulary Medication ( See Comment Field Below ) REMOVE LIDODERM PATCH DAILY@ XX 03/27/20 21:00 UNV Olanzapine (ZyPREXA ZYDIS) 5 mg BID PO 03/23/20 09:00 03/29/20 11:14 DC 03/29/20 08:52 Olanzapine (ZyPREXA ZYDIS) 5 mg Q4HP PRN PO ANXIETY/AGITATION 03/23/20 11:30 03/29/20 21:52 Phenol (Chloraseptic [place]) 1 spray Q12HP PRN MT SORE THROAT 03/25/20 04:00 03/25/20 03:31 Thiamine HCl (Thiamine HCl) 100 mg DAILY PO 03/28/20 09:00 03/30/20 09:19 Trazodone HCl (Desyrel) 50 mg QHSP PRN PO INSOMNIA 03/23/20 11:30 03/29/20 11:14 DC 03/28/20 20:11 Allergies Coded Allergies: No Known Allergies (Verified Allergy, Unknown, 03/19/20) WAN MEJIA NP Mar 30, 2020 10:43
[2020-03-30 16:56] VITALS: BP 104/70
[2020-03-30] MEDS: diphenhydrAMINE 50MG CAP PO PRN (20:41)
[2020-03-30] MEDS: **NOTE PATIENT COMMENT** MISC XX SCH (20:46)
[2020-03-31 06:47] VITALS: BP 106/69
[2020-03-31] MEDS: LIDOCAINE 5% (LIDODERM) PATCH TD SCH (09:09)
[2020-03-31] MEDS: LORazepam 0.5 MG TAB PO SCH ×4 (09:09→23:17)
[2020-03-31] MEDS: haloperidoL 5 MG TAB PO SCH ×3 (09:09→23:17)
[2020-03-31] MEDS: FOLIC ACID 1 MG TAB PO SCH (09:10)
[2020-03-31] MEDS: MULTIVITAMINS/MINERALS THERAP 1 TAB PO SCH (09:10)
[2020-03-31] MEDS: CHLORASEPTIC SPRAY MT PRN (09:10)
[2020-03-31] MEDS: CEPACOL LOZENGE PO PRN (09:10)
[2020-03-31] MEDS: THIAMINE 100 MG TAB PO SCH (09:10)
--- NOTE | 2020-03-31 13:11 | MHIPNPDOC ---
[facility] Progress Note Progress Note DATE OF SERVICE: 03/31/20 HISTORY: Patient is a 64 year old Single, Male who is admitted directly from Medical for altered mental status. He was found driving erratic. He was delirious and/or having psychotic symptoms on medicine and subsequently admitted to psychiatry. Reports from family that patient had recent TIAs within the past year. VITAL SIGNS: See below. NEW TEST RESULTS: CURRENT MEDICATIONS: See below. MENTAL STATUS EXAMINATION: Patient is a 64-year old male, who is admitted to psychiatry for initially psychiatric symptoms of psychosis and/or delirium. Patient was admitted to [facility] for Altered Mental Status. He continues to have altered mental status. Speech: Is non-communicative. Language skills are Poor/aphasic Thought processes including: Disorganized, non-linear Thought content: Anxious, is observed at times to be agitated with having a sitter (appears to not like being followed) Abstract reasoning, and computation: Poor Description of associations: Unable to determine. He is not observed with psychosis, paranoia, aidee, obsessions, auditory/visual hallucinations Description of abnormal or psychotic thoughts: None observed Judgment: Limited/Poor Insight: Limited/Poor Orientation: Alert and oriented to self only Recent and remote memory: Poor Attention span and concentration: Poor Language: Poor Fund of knowledge: Poor Mood: Confused. Affect: Flat DIAGNOSES: 1. Unspecified Schizophrenia and Other Psychotic Disorder 2. Delirium 3. Methamphetamine Use Disorder ASSESSMENT: Patient interviewed in the office. He was restless and fidgety in the chair. Unable to articulate his thoughts. He attempts to confabulate but cannot form sentences. Has poor attention span, has trouble concentrating and has reduce ability to organize thoughts and communicate. He is observed at times with unsteady and shuffling gait. According to staff, patient stood up in the dining area with other peers and urinated on himself last evening. He attempts to explain things, but has what appears to be experiencing non-fluent aphasia. Per sitter, patient is able to recognize his room sometimes, most often he is directed back to his room because he is unable to recognize his room. Patient is calm and cooperative during the interview but is often making small messes in his room, making trash, moving mattress around and then leaving on the floor. He often observed to be stuporous. MANAGEMENT PLAN: Neuro consult requested. I spoke to Dr. Brantley and he will review the chart. Continue medications, no medication changes at this time. Continue Sitter for High Risk for falling and confusion. TIME SPENT: minutes. Vital Signs Vital Signs Date Time Temp Pulse Resp B/P (MAP) Pulse Ox O2 Delivery O2 Flow Rate FiO2 03/31/20 06:47 98.0 87 18 106/69 (81) 98 Room Air Current Medications Current Medications Medications (Trade) Dose Ordered Sig/Risa Route PRN Reason Start Time Stop Time Status Last Admin Dose Admin Acetaminophen (Tylenol Tab) 650 mg Q6HP PRN PO HEADACHE or DISCOMFORT 03/23/20 11:30 03/29/20 10:21 Al Hydrox/Mg Hydrox/Simethicone (Mylanta) 30 ml Q4HP PRN PO HEARTBURN/INDIGESTION 03/23/20 11:30 Cetylpyridinium Chloride (Cepacol) 1 joseph Q8HP PRN PO SORE THROAT 03/24/20 23:30 03/31/20 09:10 Diphenhydramine HCl (Benadryl) 25 mg Q6H PO 03/25/20 18:00 03/25/20 16:39 DC Diphenhydramine HCl (Benadryl) 25 mg Q6HP PRN PO ITCHING 03/25/20 16:45 03/29/20 01:08 Diphenhydramine HCl (Benadryl) 50 mg QHSP PRN PO INSOMNIA 03/29/20 11:15 03/30/20 20:41 Folic Acid (Folic Acid) 1 mg DAILY PO 03/27/20 09:00 03/31/20 09:10 Folic Acid (Folic Acid) 1 mg DAILY PO 03/28/20 09:00 03/28/20 08:21 DC Haloperidol (Haldol) 5 mg BID PO 03/29/20 09:00 03/31/20 09:09 Lidocaine (Lidoderm Patch) 1 patch DAILY TD 03/28/20 09:00 03/31/20 09:09 Lorazepam (Ativan) 0.5 mg TID PO 03/28/20 09:00 03/31/20 09:09 Lorazepam (Ativan) 2 mg STAT STAT PO 03/23/20 15:24 03/23/20 15:25 DC 03/23/20 15:27 Magnesium Hydroxide (Milk Of Magnesia) 30 ml DAILYPRN PRN PO CONSTIPATION 03/23/20 11:30 Multivitamins (Theragram-M) 1 tab DAILY PO 03/28/20 09:00 03/31/20 09:10 Non-Formulary Medication ( See Comment Field Below ) 1 DAILY@21 XX 03/27/20 21:00 03/30/20 20:46 Non-Formulary Medication ( See Comment Field Below ) REMOVE LIDODERM PATCH DAILY@ XX 03/27/20 21:00 UNV Olanzapine (ZyPREXA ZYDIS) 5 mg BID PO 03/23/20 09:00 03/29/20 11:14 DC 03/29/20 08:52 Olanzapine (ZyPREXA ZYDIS) 5 mg Q4HP PRN PO ANXIETY/AGITATION 03/23/20 11:30 03/29/20 21:52 Phenol (Chloraseptic [place]) 1 spray Q12HP PRN MT SORE THROAT 03/25/20 04:00 03/31/20 09:10 Thiamine HCl (Thiamine HCl) 100 mg DAILY PO 03/28/20 09:00 03/31/20 09:10 Trazodone HCl (Desyrel) 50 mg QHSP PRN PO INSOMNIA 03/23/20 11:30 03/29/20 11:14 DC 03/28/20 20:11 Allergies Coded Allergies: No Known Allergies (Verified Allergy, Unknown, 03/19/20) WAN MEJIA NP Mar 31, 2020 13:11
[2020-03-31 17:30] LABS: THYROID STIMULATING HORMONE 1.03 uIU/ML (0.358-3.740)
[2020-03-31 17:31] LABS: FREE T4 0.87 NG/DL (0.76-1.46)
[2020-03-31 19:26] VITALS: BP 141/76
[2020-03-31] MEDS: **NOTE PATIENT COMMENT** MISC XX SCH (21:00)
[2020-04-01 06:37] VITALS: BP 126/74
[2020-04-01] MEDS: LIDOCAINE 5% (LIDODERM) PATCH TD SCH (09:00)
[2020-04-01] MEDS: haloperidoL 5 MG TAB PO SCH ×2 (10:42→23:31)
[2020-04-01] MEDS: FOLIC ACID 1 MG TAB PO SCH (10:42)
[2020-04-01] MEDS: MULTIVITAMINS/MINERALS THERAP 1 TAB PO SCH (10:42)
[2020-04-01] MEDS: THIAMINE 100 MG TAB PO SCH (10:42)
[2020-04-01] MEDS: LORazepam 0.5 MG TAB PO SCH ×3 (10:43→23:31)
[2020-04-01] MEDS: CEPACOL LOZENGE PO PRN (10:47)
[2020-04-01] MEDS: **NOTE PATIENT COMMENT** MISC XX SCH (21:00)
[2020-04-02] MEDS: diphenhydrAMINE 50MG CAP PO PRN (01:38)
[2020-04-02] MEDS: OLANZapine ORAL DISINTEGRATING TAB 5MG PO PRN (01:38)
[2020-04-02 06:50] VITALS: BP 126/69
[2020-04-02] MEDS: LORazepam 0.5 MG TAB PO SCH ×3 (08:57→20:52)
[2020-04-02] MEDS: FOLIC ACID 1 MG TAB PO SCH (08:58)
[2020-04-02] MEDS: THIAMINE 100 MG TAB PO SCH (08:58)
[2020-04-02] MEDS: haloperidoL 5 MG TAB PO SCH ×2 (08:58→20:54)
[2020-04-02] MEDS: MULTIVITAMINS/MINERALS THERAP 1 TAB PO SCH (08:58)
[2020-04-02] MEDS: LIDOCAINE 5% (LIDODERM) PATCH TD SCH (09:00)
--- NOTE | 2020-04-02 16:10 | MHIPN ---
DATE: 04/01/2020 VITAL SIGNS: Blood pressure 126/74, pulse 96, temperature 97.5. CHIEF COMPLAINT: Says she is okay. OBJECTIVE: Seen for follow-up, this is in the presence of staff. He says he has been feeling okay, but does not elaborate, says he slept well, has been eating. MENTAL STATUS EXAM: He is somewhat unkempt, cooperative, but possibly a bit guarded. No agitation, but appears mildly fidgety. No psychomotor retardation as such. Answers questions briefly, logically, coherently, but with a very restricted affect. Denies any suicidal thoughts or intents. No homicidal ideas or intents. Currently, there is no evidence of any delusions, does not appear to be internally preoccupied, there is quality of thought. Judgment, insight remain compromised. ASSESSMENT: 1. Psychotic disorder not otherwise specified (other specified schizophrenia spectrum and related disorders). 2. Methamphetamine use disorder. 3. The possibility of delirium has been raised, but currently there does not seem to be any fluctuation of consciousness as such. He can maintain attention, sensorium is clear, but disorientation is unclear. PLAN: Continue current care, observations, including one-on-one observations for now. Encouraged participation in activities on the unit. Further recommendations will be made depending on the clinical picture. TOD
[2020-04-02 19:03] VITALS: BP 111/73
[2020-04-02] MEDS: **NOTE PATIENT COMMENT** MISC XX SCH (21:00)
[2020-04-03 06:42] VITALS: BP 117/73
[2020-04-03] MEDS: LIDOCAINE 5% (LIDODERM) PATCH TD SCH (09:19)
[2020-04-03] MEDS: FOLIC ACID 1 MG TAB PO SCH (09:19)
[2020-04-03] MEDS: MULTIVITAMINS/MINERALS THERAP 1 TAB PO SCH (09:19)
[2020-04-03] MEDS: THIAMINE 100 MG TAB PO SCH (09:19)
[2020-04-03] MEDS: haloperidoL 5 MG TAB PO SCH ×2 (09:19→21:36)
[2020-04-03] MEDS: LORazepam 1 MG TAB PO SCH ×3 (10:38→21:36)
[2020-04-03 17:59] VITALS: BP 107/62
[2020-04-03] MEDS: **NOTE PATIENT COMMENT** MISC XX SCH (21:00)
[2020-04-03] MEDS: diphenhydrAMINE 50MG CAP PO PRN (21:36)
--- NOTE | 2020-04-04 07:17 | CR ---
DATE OF CONSULTATION: April 01, 2020 REFERRING PHYSICIAN: Dr. West REASON FOR CONSULTATION: Altered mental status. HISTORY OF PRESENT ILLNESS: Steve Samuel is 64-year-old man with history of substance abuse using methamphetamine and possibly heroin, who was brought to [facility] due to driving irrationally, confused and was admitted for altered mental status. His ammonia was initially high, but it normalized. The patient remained confused. The patient is unable to provide any reliable history except very basic information about his and family. He was able to tell me names of his two children, but was unable to recall name of third child. 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 until two weeks ago. He gave me the phone number of his , although later I found out that the patient had from his and also has a girlfriend. I was unable to get in touch with or the patient's girlfriend, whose phone numbers were in the chart and I tried calling them. The patient stated that he thinks he is in [place], [place]. He did not know the name of city and place and was unable to tell me date, month and year. The patient denies drinking alcohol. He denies using illicit drugs. The patient denied any headache, neck or back pain. He did not state that he is disabled. He appeared restless in the chair and had excessive movements, as if he was trying to get out of chair, but he has remained sitting. He denied any auditory or visual hallucinations. His girlfriend and ex- noted bizarre behavior. It does not appear to be me that he is currently having any hallucinations or delusions. He appears distorted, unusual and bizarre. He denies any falls, head injuries, dysphagia, dysarthria, diplopia, urinary incontinence, seizures, headaches, neck or back pain or fever. He is admitted at inpatient mental health unit. His urine toxicology screen on medical floor and emergency room was positive for amphetamines. His ammonia and liver enzymes normalized. His MRI scan of brain was reviewed and was affected by motion artifact and only mild atrophy was noted on T2 images of MRI scan of brain without any changes in the size of ventricles. SIGNIFICANT PAST MEDICAL HISTORY: Substance abuse history. There is no past medical history of inpatient psychiatric or suicidal attempts. SOCIAL HISTORY: The patient denies alcohol intake. He states that he smoked in the past. He denies using amphetamine or heroin. FAMILY HISTORY: Could not reliably be obtained. CURRENT MEDICATIONS: Trazodone, Zyprexa, lorazepam, Tylenol. ALLERGIES: None. REVIEW OF SYSTEMS: All systems were reviewed with the patient and found to be noncontributory, except as mentioned in the present illness. PHYSICAL EXAMINATION: Temperature 98, pulse 87, respiratory rate 18, blood pressure 106/69, 98% saturation on room air. Heart: Regular rate and rhythm. Lungs: Clear to auscultation. Abdomen: Soft, nontender, non-distended. No pedal edema. No musculoskeletal abnormalities. No rash or signs of meningeal irritation. The patient is awake, alert, oriented to self, name of president. He is unable to tell me day, date, month, year, name of city, state, country, place. He is unable to provide any meaningful history about his problem. He is able to follow simple one or two step commands. No apparent delusions or hallucinations. No cogwheel rigidity, tremor or shuffling gait. Extraocular muscles intact. No facial weakness. Uvula midline. Visual goldstein are full to confrontation. 5/5 strength in all 4 extremities. Deep tendon reflexes are 1+ throughout. Normal sensation throughout. Gait is normal. No nystagmus. ASSESSMENT: 1. Altered mentation including bizarre behavior and cognitive impairment. 2. Lewy body dementia is less likely in the absence of any visual hallucinations, Parkinsonism, tremor or rigidity. 3. Effects of substance abuse, Wernicke-Korsakoff psychosis and disorganized schizophrenia are in differential diagnosis. The patient denies any history of alcoholism, although has used multiple illicit drugs, which can also be contributing factor. PLAN: 1. Check vitamin B12, vitamin B1, serum copper, TSH, etc. 2. I do not know if trial of Aricept or Namenda would help him. 3. Continue Zyprexa, trazodone and Ativan per psychiatry. 4. MRI brain should be repeated and EEG should be considered for further evaluation. MTDD
[2020-04-04] MEDS: FOLIC ACID 1 MG TAB PO SCH (11:07)
[2020-04-04] MEDS: LORazepam 1 MG TAB PO SCH ×3 (11:07→20:34)
[2020-04-04] MEDS: LIDOCAINE 5% (LIDODERM) PATCH TD SCH (11:07)
[2020-04-04] MEDS: haloperidoL 5 MG TAB PO SCH ×2 (11:07→20:34)
[2020-04-04] MEDS: THIAMINE 100 MG TAB PO SCH (11:07)
[2020-04-04] MEDS: MULTIVITAMINS/MINERALS THERAP 1 TAB PO SCH (11:07)
--- NOTE | 2020-04-04 11:32 | MHIPNPDOC ---
[facility] Progress Note Progress Note DATE OF SERVICE: 04/04/20 HISTORY: Patient is a 64 year old Male who was admitted directly from Medical Unit after being admitted for Altered Mental Status. Patient has had no other psychiatric admissions, but has a polysubstance use disorder. He was admitted for psychotic +/or delirium symptoms. Patient was seen by Dr. Brantley who feels that patient is not experiencing Lewy Body Dementia but perhaps Wernicke's- Korsakoff Syndrome or Disorganized Schizophrenia (patient has not history of mental illness and prior to one month ago he was not experiencing schizophrenic symptoms) According to his ex- patient had history of TIAS within the past year, and was found disorganized and confused after being found with altered mental status while driving. VITAL SIGNS: See below. NEW TEST RESULTS: CURRENT MEDICATIONS: See below. MENTAL STATUS EXAMINATION: Patient is a 64-year old male, who is having no psychiatric symptoms but is observed with confusion, aphasia, restless, fidgety, repetitive movements in the bed, at times seen wandering, has difficulty forming sentences to articulate his thoughts, he is very challenged if he needed to plan, or solve problems. Speech: Is poor Language skills are poor. Thought processes including: scattered, disorganized and Thought content: NO abnormal psych issues Abstract reasoning, and computation: Poor. Description of associations: None observed Description of abnormal or psychotic thoughts: Restlessness Judgment: Limited Insight: Poor Orientation: Alert to self and place with much encouragement Recent and remote memory: Poor Attention span and concentration: Poor Language: Poor Fund of knowledge: Poor Mood: Depressed Affect: Flat DIAGNOSES: 1. Unspecified Psychosis 2. Delirium 3. r/o Wernicke's-Korsakoff Syndrome ASSESSMENT: Patient observed to be restless with psychomotor agitation, has poor cognitive functioning. Patient can answer questions appropriate given much time to answer in low voice - only answers with one word, and he is not spontaneous in conversation. Patient is not reporting any abnormal psychotic symptoms of paranoia, delusional, auditory or visual hallucinations, He does present with disorganized behavior but not child-like, silly, aggressive or violent. His negative symptoms which points to his inability to attends to his personal hygiene and social withdrawal does not appear to be a concerted effort to avoid these but that he has no cognitive awareness to do so. Possibly Wernicke's Korsakoff Psychosis or Disorganized Schizophrenia per Dr. Brantley's consultation. Patient appears to have some depression due to his circumstances but he is not verbally reporting depression or anxiety. MANAGEMENT PLAN: We have made numerous contacts to patient's girlfriend with whom the patient resided. According to Social Work Legal Receptionist Mara, patient's ex- is on the release and feels that patient is not ready for discharge. Patient will most likely need longer hospitalization and/or a usp facility given the fact that he has needed a sitter throughout his hospitalization, needs redirecting for eating, dressing and other activities. Patient to remain on unit until we have made safe discharge planning with his family. TIME SPENT: 20 minutes. Vital Signs Vital Signs Date Time Temp Pulse Resp B/P (MAP) Pulse Ox O2 Delivery O2 Flow Rate FiO2 04/03/20 17:59 98.8 97 18 107/62 (77) 04/03/20 06:42 100 Room Air Current Medications Current Medications Medications (Trade) Dose Ordered Sig/Risa Route PRN Reason Start Time Stop Time Status Last Admin Dose Admin Acetaminophen (Tylenol Tab) 650 mg Q6HP PRN PO HEADACHE or DISCOMFORT 03/23/20 11:30 03/29/20 10:21 Al Hydrox/Mg Hydrox/Simethicone (Mylanta) 30 ml Q4HP PRN PO HEARTBURN/INDIGESTION 03/23/20 11:30 Cetylpyridinium Chloride (Cepacol) 1 joseph Q8HP PRN PO SORE THROAT 03/24/20 23:30 04/01/20 10:47 Diphenhydramine HCl (Benadryl) 25 mg Q6H PO 03/25/20 18:00 03/25/20 16:39 DC Diphenhydramine HCl (Benadryl) 25 mg Q6HP PRN PO ITCHING 03/25/20 16:45 03/29/20 01:08 Diphenhydramine HCl (Benadryl) 50 mg QHSP PRN PO INSOMNIA 03/29/20 11:15 04/03/20 21:36 Folic Acid (Folic Acid) 1 mg DAILY PO 03/27/20 09:00 04/04/20 11:07 Folic Acid (Folic Acid) 1 mg DAILY PO 03/28/20 09:00 03/28/20 08:21 DC Haloperidol (Haldol) 5 mg BID PO 03/29/20 09:00 04/04/20 11:07 Lidocaine (Lidoderm Patch) 1 patch DAILY TD 03/28/20 09:00 04/04/20 11:07 Lorazepam (Ativan) 0.5 mg TID PO 03/28/20 09:00 04/03/20 08:53 DC 04/02/20 20:52 Lorazepam (Ativan) 1 mg TID PO 04/03/20 09:00 04/04/20 11:07 Lorazepam (Ativan) 2 mg STAT STAT PO 03/23/20 15:24 03/23/20 15:25 DC 03/23/20 15:27 Magnesium Hydroxide (Milk Of Magnesia) 30 ml DAILYPRN PRN PO CONSTIPATION 03/23/20 11:30 Multivitamins (Theragram-M) 1 tab DAILY PO 03/28/20 09:00 04/04/20 11:07 Non-Formulary Medication ( See Comment Field Below ) 1 DAILY@ XX 03/27/20 21:00 03/30/20 20:46 Non-Formulary Medication ( See Comment Field Below ) REMOVE LIDODERM PATCH DAILY@21 XX 03/27/20 21:00 UNV Olanzapine (ZyPREXA ZYDIS) 5 mg BID PO 03/23/20 09:00 03/29/20 11:14 DC 03/29/20 08:52 Olanzapine (ZyPREXA ZYDIS) 5 mg Q4HP PRN PO ANXIETY/AGITATION 03/23/20 11:30 04/02/20 01:38 Phenol (Chloraseptic [place]) 1 spray Q12HP PRN MT SORE THROAT 03/25/20 04:00 03/31/20 09:10 Thiamine HCl (Thiamine HCl) 100 mg DAILY PO 03/28/20 09:00 04/04/20 11:07 Trazodone HCl (Desyrel) 50 mg QHSP PRN PO INSOMNIA 03/23/20 11:30 03/29/20 11:14 DC 03/28/20 20:11 Allergies Coded Allergies: No Known Allergies (Verified Allergy, Unknown, 03/19/20) WAN MEJIA NP Apr 04, 2020 11:32
--- NOTE | 2020-04-04 12:20 | MHIPN ---
DATE: 04/02/2020 VITAL SIGNS: Blood pressure 126/69, pulse 91, temperature 97.5. CHIEF COMPLAINT: Says he is okay. OBJECTIVE: Seen for follow-up. He indicates he is okay, but he is unable to expand on that, or much else at present. Has slept well. Appetite okay. MENTAL STATUS EXAMINATION: Neater than yesterday, cooperative, appears somewhat restless. He answers questions, but it is hard to make out his speech. Briefly coherent, at other times somewhat tangential, with a restricted affect. Denies any suicidal thoughts or intents. Unable to ascertain for any psychosis. No fluctuation of consciousness. He is alert, oriented to person, not to place nor to time. Judgment and insight remain compromised. TOD
[2020-04-04 18:00] VITALS: BP 120/88
[2020-04-04] MEDS: **NOTE PATIENT COMMENT** MISC XX SCH (20:34)
[2020-04-04] MEDS: diphenhydrAMINE 50MG CAP PO PRN (20:34)
[2020-04-04] MEDS: ACETAMINOPHEN TAB 650MG DOSE (2X325MG) PO PRN (20:34)
[2020-04-05] MEDS: OLANZapine ORAL DISINTEGRATING TAB 5MG PO PRN (01:01)
[2020-04-05 05:28] VITALS: BP 139/91
[2020-04-05] MEDS: THIAMINE 100 MG TAB PO SCH (09:59)
[2020-04-05] MEDS: FOLIC ACID 1 MG TAB PO SCH (09:59)
[2020-04-05] MEDS: MULTIVITAMINS/MINERALS THERAP 1 TAB PO SCH (09:59)
[2020-04-05] MEDS: LIDOCAINE 5% (LIDODERM) PATCH TD SCH (10:00)
[2020-04-05] MEDS: LORazepam 1 MG TAB PO SCH ×3 (10:00→21:15)
[2020-04-05] MEDS: haloperidoL 5 MG TAB PO SCH ×2 (10:00→21:15)
--- NOTE | 2020-04-05 12:53 | MHIPNPDOC ---
[facility] Progress Note Progress Note DATE OF SERVICE: 04/05/20 HISTORY: Patient is a 64 year old Single Male who was directly admitted from [facility] to [facility] for psychotic symptoms and Delirium for what may have been a stimulant (Zuleima) intoxication. Patient was admitted on 03/23/20 and seen by consulting psychiatrist Dr. Austin. Patient has a reported history of Polysubstance Use. He remains confused and unable to engage in interview. He is distorted and unusual and bizarre. Additionally, he has tested positive for methamphetamine. It is suspected that this was Methamphetamine Toxicity, no reports of ETOH addiction, but he did often drink VITAL SIGNS: See below. NEW TEST RESULTS: CURRENT MEDICATIONS: See below. MENTAL STATUS EXAMINATION: Patient is a 64-year old male, who is day 14 of his hospitalization. He was admitted on medical due to his altered mental status which has continued into his hospitalization on [facility] without improvement despite pharmacologic and diagnostic interventions. Speech: Is Nonsensical, he demonstrates poor articulation, and aphasia Language skills are poor Thought processes including: disorganized, confused, disoriented Thought content: confused and disoriented Abstract reasoning, and computation: poor Description of associations: none observed Description of abnormal or psychotic thoughts: none observed Judgment: none Insight: none Orientation: alert to self and his date of Recent and remote memory: poor Attention span and concentration: poor Language: poor Fund of knowledge: poor Mood: flat/anxious. Affect: Blunted DIAGNOSES: 1. Unspecified Psychosis 2. r/o Delirium 3. r/o Dementia ASSESSMENT: Patient presents with no psychotic symptoms of delusions, davis ucinations, auditory or visual hallucinations, non-reality based stories or false beliefs. He does appear to have dementia like symptoms: Memory loss, difficulty performing tasks, disorientation, confusion, poor or no judgment, trouble with speech/language, unable to perform ADLs, repetitive movements, poor sleep and incontinence. He is unable to report depression, suicidal/homicidal ideation, and anxiety. He is observed to be restless, having psychomotor agitation, repetitive movement, poor eye contact and poor ability to communicate his needs. MANAGEMENT PLAN: Continue sitter due to confusion. Continue medications as prescribed. I spoke with patient's daughter, Effie who is on the release of information. She reports that her father was confused and disoriented one week prior to his hospitalization. She recalls that she called him, and he was confused on the phone, believing that she was present in the room with him. The next day he did not remember that they had spoke on the phone. One day prior to his hospitalization he called her and asked her if she was coming to see him, and he stated to his daughter that his girlfriend was poisoning him and that something was wrong. Patient then left multiple voice messages and he was very paranoid. Effie reports that patient has a long substance history but not an alcohol abuse history. Family would like the patient to be [facility] a [facility] as they are not able to care for him at home. They do not want to send him to a correction facility in the area if they can utilize the [facility] system. This was explained to the patient, I am unable to determine if patient understood this or not. He did not acknowledge understanding. Effie states that she believes her father has full [facility] benefits. She also stated that her mother, patient's ex- called the [facility] and they told her that they would accept him if they had a bed available. We will make the referral and call the [facility] for an understanding of the process for transfer. TIME SPENT: 30 minutes. Vital Signs Vital Signs Date Time Temp Pulse Resp B/P (MAP) Pulse Ox O2 Delivery O2 Flow Rate FiO2 04/05/20 05:28 97.9 94 16 139/91 (107) Room Air 04/03/20 06:42 100 Current Medications Current Medications Medications (Trade) Dose Ordered Sig/Risa Route PRN Reason Start Time Stop Time Status Last Admin Dose Admin Acetaminophen (Tylenol Tab) 650 mg Q6HP PRN PO HEADACHE or DISCOMFORT 03/23/20 11:30 04/04/20 20:34 Al Hydrox/Mg Hydrox/Simethicone (Mylanta) 30 ml Q4HP PRN PO HEARTBURN/INDIGESTION 03/23/20 11:30 Cetylpyridinium Chloride (Cepacol) 1 joseph Q8HP PRN PO SORE THROAT 03/24/20 23:30 04/01/20 10:47 Diphenhydramine HCl (Benadryl) 25 mg Q6H PO 03/25/20 18:00 03/25/20 16:39 DC Diphenhydramine HCl (Benadryl) 25 mg Q6HP PRN PO ITCHING 03/25/20 16:45 03/29/20 01:08 Diphenhydramine HCl (Benadryl) 50 mg QHSP PRN PO INSOMNIA 03/29/20 11:15 04/04/20 20:34 Folic Acid (Folic Acid) 1 mg DAILY PO 03/27/20 09:00 04/05/20 09:59 Folic Acid (Folic Acid) 1 mg DAILY PO 03/28/20 09:00 03/28/20 08:21 DC Haloperidol (Haldol) 5 mg BID PO 03/29/20 09:00 04/05/20 10:00 Lidocaine (Lidoderm Patch) 1 patch DAILY TD 03/28/20 09:00 04/05/20 10:00 Lorazepam (Ativan) 0.5 mg TID PO 03/28/20 09:00 04/03/20 08:53 DC 04/02/20 20:52 Lorazepam (Ativan) 1 mg TID PO 04/03/20 09:00 04/05/20 10:00 Lorazepam (Ativan) 2 mg STAT STAT PO 03/23/20 15:24 03/23/20 15:25 DC 03/23/20 15:27 Magnesium Hydroxide (Milk Of Magnesia) 30 ml DAILYPRN PRN PO CONSTIPATION 03/23/20 11:30 Multivitamins (Theragram-M) 1 tab DAILY PO 03/28/20 09:00 04/05/20 09:59 Non-Formulary Medication ( See Comment Field Below ) 1 DAILY@ XX 03/27/20 21:00 04/04/20 20:34 Non-Formulary Medication ( See Comment Field Below ) REMOVE LIDODERM PATCH DAILY@ XX 03/27/20 21:00 UNV Olanzapine (ZyPREXA ZYDIS) 5 mg BID PO 03/23/20 09:00 03/29/20 11:14 DC 03/29/20 08:52 Olanzapine (ZyPREXA ZYDIS) 5 mg Q4HP PRN PO ANXIETY/AGITATION 03/23/20 11:30 04/05/20 01:01 Phenol (Chloraseptic [place]) 1 spray Q12HP PRN MT SORE THROAT 03/25/20 04:00 03/31/20 09:10 Thiamine HCl (Thiamine HCl) 100 mg DAILY PO 03/28/20 09:00 04/05/20 09:59 Trazodone HCl (Desyrel) 50 mg QHSP PRN PO INSOMNIA 03/23/20 11:30 03/29/20 11:14 DC 03/28/20 20:11 Allergies Coded Allergies: No Known Allergies (Verified Allergy, Unknown, 03/19/20) WAN MEJIA NP Apr 05, 2020 12:53
[2020-04-05] MEDS: **NOTE PATIENT COMMENT** MISC XX SCH (21:00)
[2020-04-05] MEDS: diphenhydrAMINE 50MG CAP PO PRN (21:15)
[2020-04-06] MEDS: LIDOCAINE 5% (LIDODERM) PATCH TD SCH (09:35)
[2020-04-06] MEDS: LORazepam 1 MG TAB PO SCH ×3 (09:35→21:38)
[2020-04-06] MEDS: THIAMINE 100 MG TAB PO SCH (09:35)
[2020-04-06] MEDS: MULTIVITAMINS/MINERALS THERAP 1 TAB PO SCH (09:35)
[2020-04-06] MEDS: haloperidoL 5 MG TAB PO SCH ×2 (09:35→21:38)
[2020-04-06] MEDS: FOLIC ACID 1 MG TAB PO SCH (09:35)
--- NOTE | 2020-04-06 14:33 | MHIPNPDOC ---
[facility] Progress Note Progress Note DATE OF SERVICE: 04/06/20 HISTORY: Patient is a 64 year old Single Male who was directly admitted [facility] to [facility] for psychotic symptoms and Delirium for what may have been a stimulant (Zuleima) intoxication. Patient was admitted on 03/23/20 and seen by consulting psychiatrist Dr. Austin. Patient has a reported history of Polysubstance Use. He remains confused and unable to engage in interview. He is distorted and unusual and bizarre. Additionally, he has tested positive for methamphetamine. It is suspected that this was Methamphetamine Toxicity, no reports of ETOH addiction, but he did often drink. Patient was seen by Dr. 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 According to his ex- patient had history of TIAS within the past year, and was found disorganized and confused after being found with altered mental status while driving. VITAL SIGNS: See below. NEW TEST RESULTS: CURRENT MEDICATIONS: See below. MENTAL STATUS EXAMINATION: Patient is a 64-year old male, who is day 15 of his hospitalization. He is being converted to 2 legal status. He was admitted on medical due to his altered mental status which has continued into his hospitalization on [facility] without improvement despite pharmacologic and diagnostic interventions. He makes poor eye contact. Poor hygiene and grooming but patient is unable to make decisions about needs of his ADLs. He is calm in the interview, but does not participate in any way to answer questions. He had repetitive movements, attempting to get out of the chair but sits back down. Speech: Is Nonsensical, he demonstrates poor articulation, and aphasia Language skills are poor Thought processes including: disorganized, confused, disoriented Thought content: confused and disoriented Abstract reasoning, and computation: poor Description of associations: none observed Description of abnormal or psychotic thoughts: none observed Judgment: none Insight: none Orientation: alert to self and his date of Recent and remote memory: poor Attention span and concentration: poor Language: poor Fund of knowledge: poor Mood: flat/anxious. Affect: Blunted DIAGNOSES: 1. Unspecified Psychosis 2. r/o Delirium 3. r/o Dementia 4. Methamphetamine Use Disorder ASSESSMENT: Patient presents with no psychotic symptoms of delusions, halluci nations, auditory or visual hallucinations, non-reality based stories or false beliefs. He does appear to have dementia like symptoms: Memory loss, difficulty performing tasks, disorientation, confusion, poor or no judgment, trouble with speech/language, unable to perform ADLs, repetitive movements, poor sleep and incontinence. He is unable to report depression, suicidal/homicidal ideation, and anxiety. He is observed to be restless less so than yesterday, having milder psychomotor agitation, repetitive movement, poor eye contact and poor ability to communicate his needs. MANAGEMENT PLAN: Continue sitter due to confusion. Continue medications as prescribed. Family would like the patient to be discharged to a [facility] as they are not able to care for him at home. They do not want to send him to a correction facility in the area if they can utilize the [facility] system. This was explained to the patient, I am unable to determine if patient understood this or not. He did not acknowledge understanding. Effie states that she believes her father has full [facility] benefits. She also stated that her mother, patient's ex- called the [facility] and they told her that they would accept him if they had a bed available. We will make the referral and call the [facility] for an understanding of the process for transfer if at all possible. We will attempt to call family again for MRI pre-screening questions, patient is unable to participate in this. TIME SPENT: 30 minutes. Vital Signs Vital Signs Date Time Temp Pulse Resp B/P (MAP) Pulse Ox O2 Delivery O2 Flow Rate FiO2 04/05/20 05:28 97.9 94 16 139/91 (107) Room Air 04/03/20 06:42 100 Current Medications Current Medications Medications (Trade) Dose Ordered Sig/Risa Route PRN Reason Start Time Stop Time Status Last Admin Dose Admin Acetaminophen (Tylenol Tab) 650 mg Q6HP PRN PO HEADACHE or DISCOMFORT 03/23/20 11:30 04/04/20 20:34 Al Hydrox/Mg Hydrox/Simethicone (Mylanta) 30 ml Q4HP PRN PO HEARTBURN/INDIGESTION 03/23/20 11:30 Cetylpyridinium Chloride (Cepacol) 1 joseph Q8HP PRN PO SORE THROAT 03/24/20 23:30 9/20 10:47 Diphenhydramine HCl (Benadryl) 25 mg Q6H PO 03/25/20 18:00 03/25/20 16:39 DC Diphenhydramine HCl (Benadryl) 25 mg Q6HP PRN PO ITCHING 03/25/20 16:45 03/29/20 01:08 Diphenhydramine HCl (Benadryl) 50 mg QHSP PRN PO INSOMNIA 03/29/20 11:15 04/05/20 21:15 Folic Acid (Folic Acid) 1 mg DAILY PO 03/27/20 09:00 04/06/20 09:35 Folic Acid (Folic Acid) 1 mg DAILY PO 03/28/20 09:00 03/28/20 08:21 DC Haloperidol (Haldol) 5 mg BID PO 03/29/20 09:00 04/06/20 09:35 Lidocaine (Lidoderm Patch) 1 patch DAILY TD 03/28/20 09:00 04/06/20 09:35 Lorazepam (Ativan) 0.5 mg TID PO 03/28/20 09:00 04/03/20 08:53 DC 04/02/20 20:52 Lorazepam (Ativan) 1 mg TID PO 04/03/20 09:00 04/06/20 09:35 Lorazepam (Ativan) 2 mg STAT STAT PO 03/23/20 15:24 03/23/20 15:25 DC 03/23/20 15:27 Magnesium Hydroxide (Milk Of Magnesia) 30 ml DAILYPRN PRN PO CONSTIPATION 03/23/20 11:30 Multivitamins (Theragram-M) 1 tab DAILY PO 03/28/20 09:00 04/06/20 09:35 Non-Formulary Medication ( See Comment Field Below ) 1 DAILY@ XX 03/27/20 21:00 04/04/20 20:34 Non-Formulary Medication ( See Comment Field Below ) REMOVE LIDODERM PATCH DAILY@ XX 03/27/20 21:00 UNV Olanzapine (ZyPREXA ZYDIS) 5 mg BID PO 03/23/20 09:00 03/29/20 11:14 DC 03/29/20 08:52 Olanzapine (ZyPREXA ZYDIS) 5 mg Q4HP PRN PO ANXIETY/AGITATION 03/23/20 11:30 04/05/20 01:01 Phenol (Chloraseptic [place]) 1 spray Q12HP PRN MT SORE THROAT 03/25/20 04:00 03/31/20 09:10 Thiamine HCl (Thiamine HCl) 100 mg DAILY PO 03/28/20 09:00 04/06/20 09:35 Trazodone HCl (Desyrel) 50 mg QHSP PRN PO INSOMNIA 03/23/20 11:30 03/29/20 11:14 DC 03/28/20 20:11 Allergies Coded Allergies: No Known Allergies (Verified Allergy, Unknown, 03/19/20) WAN MEJIA NP Apr 06, 2020 14:33
[2020-04-06 16:23] VITALS: BP 111/78
[2020-04-06] MEDS: **NOTE PATIENT COMMENT** MISC XX SCH (21:38)
[2020-04-06] MEDS: diphenhydrAMINE 50MG CAP PO PRN (21:38)
[2020-04-07 07:06] VITALS: BP 127/84
[2020-04-07] MEDS: haloperidoL 5 MG TAB PO SCH ×2 (09:38→21:50)
[2020-04-07] MEDS: THIAMINE 100 MG TAB PO SCH (09:38)
[2020-04-07] MEDS: LORazepam 1 MG TAB PO SCH ×3 (09:38→21:50)
[2020-04-07] MEDS: FOLIC ACID 1 MG TAB PO SCH (09:39)
[2020-04-07] MEDS: LIDOCAINE 5% (LIDODERM) PATCH TD SCH (09:39)
[2020-04-07] MEDS: MULTIVITAMINS/MINERALS THERAP 1 TAB PO SCH (09:39)
--- NOTE | 2020-04-07 15:34 | MHIPNPDOC ---
[facility] Progress Note Progress Note DATE OF SERVICE: 04/07/20 HISTORY: This is Day 16 of this patient's admission. To review; Patient is a 64 year old Single Male who was directly admitted from Medical to [facility] for psychotic symptoms and Delirium for what may have been a stimulant (Zuleima) intoxication. Patient was admitted on 03/23/20 and seen by consulting psychiatrist Dr. Austin. Patient has a reported history of Polysubstance Use. He remains confused and unable to engage in interview. He is distorted and unusual and bizarre. Additionally, he has tested positive for methamphetamine. It is suspected that this was Methamphetamine Toxicity, no reports of ETOH addiction, but he did often drink. Patient was seen by Dr. Brantley (Neurology) Please see his report. 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 According to his ex- patient had history of TIAS within the past year, and was found disorganized and confused after being found with altered mental status while driving. VITAL SIGNS: See below. NEW TEST RESULTS: . CURRENT MEDICATIONS: See below. MENTAL STATUS EXAMINATION: Patient is a 64-year old male, who is day 16 of his hospitalization. He is being converted to 2 legal status. He was admitted on medical due to his altered mental status which has continued into his hospitalization on [facility] without improvement despite pharmacologic and diagnostic interventions. He makes poor eye contact. Poor hygiene and grooming but patient is unable to make decisions about needs of his ADLs. He is calm in the interview, but does not participate in any way to answer questions. He had repetitive movements, attempting to get out of the chair but sits back down. Speech: Is Nonsensical, he demonstrates poor articulation, and aphasia Language skills are poor Thought processes including: disorganized, confused, disoriented Thought content: confused and disoriented Abstract reasoning, and computation: poor Description of associations: none observed Description of abnormal or psychotic thoughts: none observed Judgment: none Insight: none Orientation: alert to self and his date of , able to state his 's name and 2 of his children's names Recent and remote memory: poor Attention span and concentration: poor Language: poor Fund of knowledge: poor Mood: flat/anxious. Affect: Blunted DIAGNOSES: 1. Unspecified Psychosis 2. r/o Delirium 3. r/o Dementia 4. Methamphetamine Use Disorder ASSESSMENT: Patient presents with no psychotic symptoms of delusions, hallucinations, auditory or visual hallucinations, non-reality based stories or false beliefs. He does appear to have dementia like symptoms: Memory loss, difficulty performing tasks, disorientation, confusion, poor or no judgment, trouble with speech/language, unable to perform ADLs, repetitive movements, poor sleep and incontinence. He is unable to report depression, suicidal/homicidal ideation, and anxiety. He is observed to be less restless less, having mild psychomotor agitation, less repetitive movement, poor eye contact and poor ability to communicate his needs. MANAGEMENT PLAN: Continue sitter due to confusion. Continue medications as prescribed. Family would like the patient to be discharged to a [facility] as they are not able to care for him at home. They do not want to send him to a penitentiary facility in the area if they can utilize the [facility] system. This was explained to the patient, I am unable to determine if patient understood this or not. He did not acknowledge understanding. Effie states that she believes her father has full V[facility] benefits. She also stated that her mother, patient's ex- called the [facility] and they told her that they would accept him if they had a bed available. We will attempt to do perform a Brain MRI, patient may not be able to cooperative through MRI due to presentation and possible in ability to hold still. Patient MRI pre-screening done by provider and patient's , screening documentation given to CHRISTINA Mantilla TIME SPENT: 30 minutes. Vital Signs Vital Signs Date Time Temp Pulse Resp B/P (MAP) Pulse Ox O2 Delivery O2 Flow Rate FiO2 04/07/20 07:06 97.1 90 16 127/84 (98) Room Air 04/06/20 16:23 90 Current Medications Current Medications Medications (Trade) Dose Ordered Sig/Risa Route PRN Reason Start Time Stop Time Status Last Admin Dose Admin Acetaminophen (Tylenol Tab) 650 mg Q6HP PRN PO HEADACHE or DISCOMFORT 03/23/20 11:30 04/04/20 20:34 Al Hydrox/Mg Hydrox/Simethicone (Mylanta) 30 ml Q4HP PRN PO HEARTBURN/INDIGESTION 03/23/20 11:30 Cetylpyridinium Chloride (Cepacol) 1 joseph Q8HP PRN PO SORE THROAT 03/24/20 23:30 04/01/20 10:47 Diphenhydramine HCl (Benadryl) 25 mg Q6H PO 03/25/20 18:00 03/25/20 16:39 DC Diphenhydramine HCl (Benadryl) 25 mg Q6HP PRN PO ITCHING 03/25/20 16:45 03/29/20 01:08 Diphenhydramine HCl (Benadryl) 50 mg QHSP PRN PO INSOMNIA 03/29/20 11:15 04/06/20 21:38 Folic Acid (Folic Acid) 1 mg DAILY PO 03/27/20 09:00 04/07/20 09:39 Folic Acid (Folic Acid) 1 mg DAILY PO 03/28/20 09:00 03/28/20 08:21 DC Haloperidol (Haldol) 5 mg BID PO 03/29/20 09:00 04/07/20 14:17 DC 04/07/20 09:38 Haloperidol (Haldol) 5 mg QHS PO 04/07/20 21:00 Lidocaine (Lidoderm Patch) 1 patch DAILY TD 03/28/20 09:00 04/07/20 09:39 Lorazepam (Ativan) 0.5 mg TID PO 03/28/20 09:00 04/03/20 08:53 DC 04/02/20 20:52 Lorazepam (Ativan) 1 mg TID PO 04/03/20 09:00 04/07/20 09:38 Lorazepam (Ativan) 2 mg STAT STAT PO 03/23/20 15:24 03/23/20 15:25 DC 03/23/20 15:27 Magnesium Hydroxide (Milk Of Magnesia) 30 ml DAILYPRN PRN PO CONSTIPATION 03/23/20 11:30 Multivitamins (Theragram-M) 1 tab DAILY PO 03/28/20 09:00 04/07/20 09:39 Non-Formulary Medication ( See Comment Field Below ) 1 DAILY@ XX 03/27/20 21:00 04/06/20 21:38 Non-Formulary Medication ( See Comment Field Below ) REMOVE LIDODERM PATCH DAILY@21 XX 03/27/20 21:00 UNV Olanzapine (ZyPREXA ZYDIS) 5 mg BID PO 03/23/20 09:00 03/29/20 11:14 DC 03/29/20 08:52 Olanzapine (ZyPREXA ZYDIS) 5 mg Q4HP PRN PO ANXIETY/AGITATION 03/23/20 11:30 04/05/20 01:01 Phenol (Chloraseptic [place]) 1 spray Q12HP PRN MT SORE THROAT 03/25/20 04:00 03/31/20 09:10 Thiamine HCl (Thiamine HCl) 100 mg DAILY PO 03/28/20 09:00 04/07/20 09:38 Trazodone HCl (Desyrel) 50 mg QHSP PRN PO INSOMNIA 03/23/20 11:30 03/29/20 11:14 DC 03/28/20 20:11 Allergies Coded Allergies: No Known Allergies (Verified Allergy, Unknown, 03/19/20) WAN MEJIA NP Apr 07, 2020 15:34
[2020-04-07 18:14] VITALS: BP 143/70
[2020-04-07] MEDS: **NOTE PATIENT COMMENT** MISC XX SCH (21:00)
[2020-04-08 07:07] VITALS: BP 107/57
[2020-04-08] MEDS: THIAMINE 100 MG TAB PO SCH (10:26)
[2020-04-08] MEDS: LORazepam 1 MG TAB PO SCH ×3 (10:26→22:11)
[2020-04-08] MEDS: LIDOCAINE 5% (LIDODERM) PATCH TD SCH (10:26)
[2020-04-08] MEDS: MULTIVITAMINS/MINERALS THERAP 1 TAB PO SCH (10:26)
[2020-04-08] MEDS: FOLIC ACID 1 MG TAB PO SCH (10:26)
--- NOTE | 2020-04-08 16:47 | MHIPNPDOC ---
[facility] Progress Note Progress Note DATE OF SERVICE: 04/08/20 HISTORY: Patient is a 64 year old male on day 17 of hospitalization. he was recently converted to a 2PC status and as per previous notes: "He was admitted on medical due to his altered mental status which has continued into his hospitalization on [facility] without improvement despite pharmacologic and diagnostic interventions." VITAL SIGNS: See below. NEW TEST RESULTS: See below CURRENT MEDICATIONS: See below. MENTAL STATUS EXAMINATION: The patient was sitting next to his door. He was wearing hospital scrubs, loo pollo disheveled, with very poor eye contact, looking down. Poor hygiene. Speech: Is incoherent, he has difficulty speaking, aphasia Language skills are poor Thought processes including: disorganized, confused. Thought content: He is confused, he doesn't respond to me when I ask him a specific question, he looks and stares around. Abstract reasoning, and computation: impaired. Description of associations: poor Description of abnormal or psychotic thoughts: the patient is not responding any questions, he doesn't seem to be responding to internal stimuli and he doesn't seem to be paranoid at this time. he is able to tolerate my presence and his sitter's presence who is very close to him. Judgment: poor Insight: poor. Orientation: To himself and he knows this is a hospital but doesn't know the name of it. Recent and remote memory: poor Attention span and concentration: poor. Language: poor. Fund of knowledge: poor. Mood: flat. Affect: congruent with mood, flat DIAGNOSES: 1. Unspecified Psychosis 2. r/o Delirium 3. r/o Dementia 4. Methamphetamine Use Disorder ASSESSMENT: The patient is not engaged with his surroundings. He is in his own inner world, he is not reactive. I consider it would be important to consult Neurology to r/o other possible medical illnesses. I concur on MRI and hopefully he will cooperate with it. MANAGEMENT PLAN: Continue current treatment plan. TIME SPENT: 10 minutes. M Vital Signs Vital Signs Date Time Temp Pulse Resp B/P (MAP) Pulse Ox O2 Delivery O2 Flow Rate FiO2 04/08/20 07:07 97.5 86 14 107/57 (74) 98 Room Air Current Medications Current Medications Medications (Trade) Dose Ordered Sig/Risa Route PRN Reason Start Time Stop Time Status Last Admin Dose Admin Acetaminophen (Tylenol Tab) 650 mg Q6HP PRN PO HEADACHE or DISCOMFORT 03/23/20 11:30 04/04/20 20:34 Al Hydrox/Mg Hydrox/Simethicone (Mylanta) 30 ml Q4HP PRN PO HEARTBURN/INDIGESTION 03/23/20 11:30 Cetylpyridinium Chloride (Cepacol) 1 joseph Q8HP PRN PO SORE THROAT 03/24/20 23:30 04/01/20 10:47 Diphenhydramine HCl (Benadryl) 25 mg Q6H PO 03/25/20 18:00 03/25/20 16:39 DC Diphenhydramine HCl (Benadryl) 25 mg Q6HP PRN PO ITCHING 03/25/20 16:45 03/29/20 01:08 Diphenhydramine HCl (Benadryl) 50 mg QHSP PRN PO INSOMNIA 03/29/20 11:15 04/06/20 21:38 Folic Acid (Folic Acid) 1 mg DAILY PO 03/27/20 09:00 04/08/20 10:26 Folic Acid (Folic Acid) 1 mg DAILY PO 03/28/20 09:00 03/28/20 08:21 DC Haloperidol (Haldol) 5 mg BID PO 03/29/20 09:00 04/07/20 14:17 DC 04/07/20 09:38 Haloperidol (Haldol) 5 mg QHS PO 04/07/20 21:00 04/07/20 21:50 Lidocaine (Lidoderm Patch) 1 patch DAILY TD 03/28/20 09:00 04/08/20 10:26 Lorazepam (Ativan) 0.5 mg TID PO 03/28/20 09:00 04/03/20 08:53 DC 04/02/20 20:52 Lorazepam (Ativan) 1 mg TID PO 04/03/20 09:00 04/08/20 10:26 Lorazepam (Ativan) 2 mg STAT STAT PO 03/23/20 15:24 03/23/20 15:25 DC 03/23/20 15:27 Magnesium Hydroxide (Milk Of Magnesia) 30 ml DAILYPRN PRN PO CONSTIPATION 03/23/20 11:30 Multivitamins (Theragram-M) 1 tab DAILY PO 03/28/20 09:00 04/08/20 10:26 Non-Formulary Medication ( See Comment Field Below ) 1 DAILY@21 XX 03/27/20 21:00 04/06/20 21:38 Non-Formulary Medication ( See Comment Field Below ) REMOVE LIDODERM PATCH DAILY@21 XX 03/27/20 21:00 UNV Olanzapine (ZyPREXA ZYDIS) 5 mg BID PO 03/23/20 09:00 03/29/20 11:14 DC 03/29/20 08:52 Olanzapine (ZyPREXA ZYDIS) 5 mg Q4HP PRN PO ANXIETY/AGITATION 03/23/20 11:30 04/05/20 01:01 Phenol (Chloraseptic [place]) 1 spray Q12HP PRN MT SORE THROAT 03/25/20 04:00 03/31/20 09:10 Thiamine HCl (Thiamine HCl) 100 mg DAILY PO 03/28/20 09:00 04/08/20 10:26 Trazodone HCl (Desyrel) 50 mg QHSP PRN PO INSOMNIA 03/23/20 11:30 03/29/20 11:14 DC 03/28/20 20:11 Allergies Coded Allergies: No Known Allergies (Verified Allergy, Unknown, 03/19/20) GISELA HONG MD Apr 08, 2020 16:47
[2020-04-08 18:00] VITALS: BP 175/96
[2020-04-08] MEDS: **NOTE PATIENT COMMENT** MISC XX SCH (21:00)
[2020-04-08] MEDS: haloperidoL 5 MG TAB PO SCH (22:11)
[2020-04-08] MEDS: diphenhydrAMINE 50MG CAP PO PRN (22:57)
[2020-04-09 06:43] VITALS: BP 139/88
[2020-04-09] MEDS: THIAMINE 100 MG TAB PO SCH (09:55)
[2020-04-09] MEDS: LORazepam 1 MG TAB PO SCH ×3 (09:55→21:41)
[2020-04-09] MEDS: MULTIVITAMINS/MINERALS THERAP 1 TAB PO SCH (09:55)
[2020-04-09] MEDS: LIDOCAINE 5% (LIDODERM) PATCH TD SCH (09:55)
[2020-04-09] MEDS: FOLIC ACID 1 MG TAB PO SCH (09:55)
[2020-04-09 18:00] VITALS: BP 123/85
[2020-04-09] MEDS: **NOTE PATIENT COMMENT** MISC XX SCH (21:41)
[2020-04-09] MEDS: diphenhydrAMINE 50MG CAP PO PRN (21:41)
[2020-04-09] MEDS: haloperidoL 5 MG TAB PO SCH (21:41)
[2020-04-10 06:12] VITALS: BP 108/64
[2020-04-10] MEDS: FOLIC ACID 1 MG TAB PO SCH (10:00)
[2020-04-10] MEDS: LIDOCAINE 5% (LIDODERM) PATCH TD SCH (10:00)
[2020-04-10] MEDS: LORazepam 1 MG TAB PO SCH ×3 (10:00→22:00)
[2020-04-10] MEDS: MULTIVITAMINS/MINERALS THERAP 1 TAB PO SCH (10:00)
[2020-04-10] MEDS: THIAMINE 100 MG TAB PO SCH (10:00)
--- NOTE | 2020-04-10 12:53 | MHIPNPDOC ---
[facility] Progress Note Progress Note DATE OF SERVICE: 04/10/20 HISTORY: This is Day 19 of this patient's admission. To review; Patient is a 64 year old Single Male who was directly admitted from Medical to [facility] for psychotic symptoms and Delirium for what may have been a stimulant (Zuleima) intoxication. Patient was admitted on 03/23/20 and seen by consulting psychiatrist Dr. Austin. Patient has a reported history of Polysubstance Use. He remains confused and unable to engage in interview. He is distorted and unusual and bizarre. Additionally, he has tested positive for methamphetamine. It is suspected that this was Methamphetamine Toxicity, no reports of ETOH addiction, but he did often drink. Patient was seen by Dr. Brantley (Neurology) Please see his report. 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 According to his ex- patient had history of TIAS within the past year, and was found disorganized and confused after being found with altered mental status while driving. VITAL SIGNS: See below. NEW TEST RESULTS: . CURRENT MEDICATIONS: See below. MENTAL STATUS EXAMINATION: Patient is a 64-year old male, who is day 19 of his hospitalization. He is a 2 PC legal status. He was admitted on medical due to his altered mental status which has continued into his hospitalization on [facility] without improvement despite pharmacologic and diagnostic interventions. Speech: aphasiac Language skills are poor Thought processes including: disorganized, confused, disoriented Thought content: confused and disoriented Abstract reasoning, and computation: poor Description of associations: none observed Description of abnormal or psychotic thoughts: none observed Judgment: none Insight: none Orientation: alert to self and his date of , able to state his 's name and 2 of his children's names Recent and remote memory: poor Attention span and concentration: poor Language: poor Fund of knowledge: poor Mood: tearful. Affect: Blunted DIAGNOSES: 1. Unspecified Psychosis 2. r/o Delirium 3. r/o Dementia 4. Methamphetamine Use Disorder ASSESSMENT: Patient is observed with less restlessness, he is less fidgety and appeared less anxious. I took the patient into my office and although he is not able to have a full conversation with his , we called her and he stated "I love you Nita" He made attempts to have a conversation and asked her in a very low whisper, "How are you doing?" Patient was very tearful in the conversation with his , he appeared to ask her when she will go home. MANAGEMENT PLAN: Continue medications, we will attempt to get a brain MRI several of the pre-screening. Discontinue Haldol 5 mg at HS. We will titrate him off Benadryl and see how he does with less Ativan. TIME SPENT: 20 minutes. Vital Signs Vital Signs Date Time Temp Pulse Resp B/P (MAP) Pulse Ox O2 Delivery O2 Flow Rate FiO2 04/10/20 06:12 98.4 84 16 108/64 (79) 97 Room Air Current Medications Current Medications Medications (Trade) Dose Ordered Sig/Risa Route PRN Reason Start Time Stop Time Status Last Admin Dose Admin Acetaminophen (Tylenol Tab) 650 mg Q6HP PRN PO HEADACHE or DISCOMFORT 03/23/20 11:30 04/04/20 20:34 Al Hydrox/Mg Hydrox/Simethicone (Mylanta) 30 ml Q4HP PRN PO HEARTBURN/INDIGESTION 03/23/20 11:30 Cetylpyridinium Chloride (Cepacol) 1 joseph Q8HP PRN PO SORE THROAT 03/24/20 23:30 04/01/20 10:47 Diphenhydramine HCl (Benadryl) 25 mg Q6H PO 03/25/20 18:00 03/25/20 16:39 DC Diphenhydramine HCl (Benadryl) 25 mg Q6HP PRN PO ITCHING 03/25/20 16:45 03/29/20 01:08 Diphenhydramine HCl (Benadryl) 50 mg QHSP PRN PO INSOMNIA 03/29/20 11:15 04/09/20 21:41 Folic Acid (Folic Acid) 1 mg DAILY PO 03/27/20 09:00 04/10/20 10:00 Folic Acid (Folic Acid) 1 mg DAILY PO 03/28/20 09:00 03/28/20 08:21 DC Haloperidol (Haldol) 5 mg BID PO 03/29/20 09:00 04/07/20 14:17 DC 04/07/20 09:38 Haloperidol (Haldol) 5 mg QHS PO 04/07/20 21:00 04/10/20 11:37 DC 04/09/20 21:41 Lidocaine (Lidoderm Patch) 1 patch DAILY TD 03/28/20 09:00 04/10/20 10:00 Lorazepam (Ativan) 0.5 mg TID PO 03/28/20 09:00 04/03/20 08:53 DC 04/02/20 20:52 Lorazepam (Ativan) 1 mg TID PO 04/03/20 09:00 04/10/20 10:00 Lorazepam (Ativan) 2 mg STAT STAT PO 03/23/20 15:24 03/23/20 15:25 DC 03/23/20 15:27 Magnesium Hydroxide (Milk Of Magnesia) 30 ml DAILYPRN PRN PO CONSTIPATION 03/23/20 11:30 Miscellaneous (Unresolved Clarification Entry) SEE LABEL COMMENTS DAILY XX 04/09/20 09:00 04/09/20 17:00 DC Multivitamins (Theragram-M) 1 tab DAILY PO 03/28/20 09:00 04/10/20 10:00 Non-Formulary Medication ( See Comment Field Below ) 1 DAILY@21 XX 03/27/20 21:00 04/09/20 21:41 Non-Formulary Medication ( See Comment Field Below ) REMOVE LIDODERM PATCH DAILY@21 XX 03/27/20 21:00 UNV Olanzapine (ZyPREXA ZYDIS) 5 mg BID PO 03/23/20 09:00 03/29/20 11:14 DC 03/29/20 08:52 Olanzapine (ZyPREXA ZYDIS) 5 mg Q4HP PRN PO ANXIETY/AGITATION 03/23/20 11:30 04/05/20 01:01 Phenol (Chloraseptic [place]) 1 spray Q12HP PRN MT SORE THROAT 03/25/20 04:00 03/31/20 09:10 Thiamine HCl (Thiamine HCl) 100 mg DAILY PO 03/28/20 09:00 04/10/20 10:00 Trazodone HCl (Desyrel) 50 mg QHSP PRN PO INSOMNIA 03/23/20 11:30 03/29/20 11:14 DC 03/28/20 20:11 Allergies Coded Allergies: No Known Allergies (Verified Allergy, Unknown, 03/19/20) WAN MEJIA W[employer]CK[employer]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
[2020-04-10] MEDS ORDERED: LORazepam 1 MG TAB PO ONE (16:00)
[2020-04-10 16:51] VITALS: BP 122/75
[2020-04-10] MEDS ORDERED: LORazepam 2 MG TAB PO ONE (18:00)
--- NOTE | 2020-04-10 19:53 | REPVR ---
PROCEDURE INFORMATION: Exam: MR Head Without Contrast Exam date and time: 04/10/2020 6:55 PM Age: 64 years old Clinical indication: Altered mental status/memory loss; Confusion or disorientation; Additional info: AMS TECHNIQUE: Imaging protocol: MR of the head without contrast. COMPARISON: MRI-Brain without Contrast 03/19/2020 4:39 PM FINDINGS: Patient motion. Major vascular flow voids at the skull base are preserved. No extra-axial fluid collection. No midline shift or intracranial mass effect. There is extensive diffusion weighted signal involving the bilateral centrum semiovale/xiao radiata extending to the periventricular white matter with mild signal decrease on ADC map. There is associated T2 prolongation and edema which is new. Mild paranasal sinus disease. No significant mastoid effusion. IMPRESSION: Interval development of extensive diffusion weighted signal involving the bilateral centrum semiovale/xiao radiata extending to the periventricular white matter with mild signal decrease on ADC map. Associated T2 prolongation and edema. Differential considerations include subacute ischemic infarction, infectious/inflammatory process or toxicity/metabolic etiology. Follow-up is recommended. Electronically signed by: Grzegorz Moya On 04/10/2020 19:53:11 PM
[2020-04-10] MEDS: **NOTE PATIENT COMMENT** MISC XX SCH (21:00)
[2020-04-10] MEDS: diphenhydrAMINE 50MG CAP PO PRN (22:00)
[2020-04-11 06:39] VITALS: BP 137/71
[2020-04-11] MEDS: THIAMINE 100 MG TAB PO SCH (09:28)
[2020-04-11] MEDS: LIDOCAINE 5% (LIDODERM) PATCH TD SCH (09:28)
[2020-04-11] MEDS: FOLIC ACID 1 MG TAB PO SCH (09:28)
[2020-04-11] MEDS: LORazepam 1 MG TAB PO SCH ×3 (09:28→20:42)
[2020-04-11] MEDS: MULTIVITAMINS/MINERALS THERAP 1 TAB PO SCH (09:28)
--- NOTE | 2020-04-11 12:21 | MHIPNPDOC ---
[facility] Progress Note Progress Note DATE OF SERVICE: 04/11/20 HISTORY: This is Day 20 of this patient's admission. To review; Patient is a 64 year old Single Male who was directly admitted from Medical to [facility] for psychotic symptoms and Delirium for what may have been a stimulant (Zuleima) intoxication. Patient was admitted on 03/23/20 and seen by consulting psychiatrist Dr. Austin. Patient has a reported history of Polysubstance Use. He remains confused and unable to engage in interview. He is distorted and unusual and bizarre. Additionally, he has tested positive for methamphetamine. It is suspected that this was Methamphetamine Toxicity, no reports of ETOH addiction, but he did often drink. Patient was seen by Dr. Brantley (Neurology) Please see his report. 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 According to his patient had history of TIAS within the past year, and was found disorganized and confused after being found with altered mental status while driving. VITAL SIGNS: See below. NEW TEST RESULTS: . CURRENT MEDICATIONS: See below. MENTAL STATUS EXAMINATION: Patient is a 64-year old male, who is day 20 of his hospitalization. He is a 2 PC legal status. He was admitted on medical due to his altered mental status which has continued into his hospitalization on [facility] without improvement despite pharmacologic and diagnostic interventions. Speech: non-conversant, non-fluid, will answer questions but slowly, volume is quite low Language skills are poor Thought processes including: disorganized, confused, disoriented but improving, no depression, anxiety, suicidal/homicidal ideation. Not observed with any abnormal psychotic symptoms Thought content: confused and disoriented Abstract reasoning, and computation: poor Description of associations: none observed Description of abnormal or psychotic thoughts: none observed Judgment: limited Insight: limited Orientation: alert to self and his date of , able to state his 's name Recent and remote memory: poor, but appears to be somewhat better Attention span and concentration: poor but appears to be improving Language: improving Fund of knowledge: improving Mood: Tearful/Flat. Affect: Blunted/Flat DIAGNOSES: 1. R/o Delirium 2. Cerebral infarction, Unspecified 3. Methamphetamine Toxicity 4. Methamphetamine Use Disorder ASSESSMENT: Patient appears to have mild improvement. He is able to follow directions, is observed with less agitation, restlessness and anxiety. He appears to calmer. I have explained the findings of the MRI and he listened intently and appeared to be trying to make sense of it. We spoke with his together. He was tearful with her and attempted to have more conversations with her, but he struggles with words. He did however ask her, How are you doing? This is an improvement from last week and even yesterday. He was very tearful when his and I discussed discharge plans to transfer him to a .A hospital. He was calmer when Nita supported this decision and stated to him that this was an interim plan and that he would be returning to live with her. MRI findings : Differential considerations include: 1. subacute ischemic infarction, 2. infectious/inflammatory process 3. toxicity/metabolic etiology. Follow-up is recommended. MANAGEMENT PLAN: Continue medications. Placement at .A. Hospital or shelter facility. We will also work with family to provider supportive services in the home. is hoping that he can be placed in a .A. hospital for further hospitalization/rehabilitation and she wants him to return home once he is stable. TIME SPENT: 20 minutes. Vital Signs Vital Signs Date Time Temp Pulse Resp B/P (MAP) Pulse Ox O2 Delivery O2 Flow Rate FiO2 04/11/20 06:39 97.3 77 18 137/71 (93) 04/10/20 06:12 97 Room Air Current Medications Current Medications Medications (Trade) Dose Ordered Sig/Risa Route PRN Reason Start Time Stop Time Status Last Admin Dose Admin Acetaminophen (Tylenol Tab) 650 mg Q6HP PRN PO HEADACHE or DISCOMFORT 03/23/20 11:30 04/04/20 20:34 Al Hydrox/Mg Hydrox/Simethicone (Mylanta) 30 ml Q4HP PRN PO HEARTBURN/INDIGESTION 03/23/20 11:30 Cetylpyridinium Chloride (Cepacol) 1 joseph Q8HP PRN PO SORE THROAT 03/24/20 23:30 04/01/20 10:47 Diphenhydramine HCl (Benadryl) 25 mg Q6H PO 03/25/20 18:00 03/25/20 16:39 DC Diphenhydramine HCl (Benadryl) 25 mg Q6HP PRN PO ITCHING 03/25/20 16:45 03/29/20 01:08 Diphenhydramine HCl (Benadryl) 50 mg QHSP PRN PO INSOMNIA 03/29/20 11:15 04/10/20 22:00 Folic Acid (Folic Acid) 1 mg DAILY PO 03/27/20 09:00 04/11/20 09:28 Folic Acid (Folic Acid) 1 mg DAILY PO 03/28/20 09:00 03/28/20 08:21 DC Haloperidol (Haldol) 5 mg BID PO 03/29/20 09:00 04/07/20 14:17 DC 04/07/20 09:38 Haloperidol (Haldol) 5 mg QHS PO 04/07/20 21:00 04/10/20 11:37 DC 04/09/20 21:41 Lidocaine (Lidoderm Patch) 1 patch DAILY TD 03/28/20 09:00 04/11/20 09:28 Lorazepam (Ativan) 0.5 mg TID PO 03/28/20 09:00 04/03/20 08:53 DC 04/02/20 20:52 Lorazepam (Ativan) 1 mg TID PO 04/03/20 09:00 04/11/20 09:28 Lorazepam (Ativan) 2 mg STAT STAT PO 03/23/20 15:24 03/23/20 15:25 DC 03/23/20 15:27 Magnesium Hydroxide (Milk Of Magnesia) 30 ml DAILYPRN PRN PO CONSTIPATION 03/23/20 11:30 Miscellaneous (Unresolved Clarification Entry) SEE LABEL COMMENTS DAILY XX 04/09/20 09:00 04/09/20 17:00 DC Multivitamins (Theragram-M) 1 tab DAILY PO 03/28/20 09:00 04/11/20 09:28 Non-Formulary Medication ( See Comment Field Below ) 1 DAILY@ XX 03/27/20 21:00 04/09/20 21:41 Non-Formulary Medication ( See Comment Field Below ) REMOVE LIDODERM PATCH DAILY@ XX 03/27/20 21:00 UNV Olanzapine (ZyPREXA ZYDIS) 5 mg BID PO 03/23/20 09:00 03/29/20 11:14 DC 03/29/20 08:52 Olanzapine (ZyPREXA ZYDIS) 5 mg Q4HP PRN PO ANXIETY/AGITATION 03/23/20 11:30 04/05/20 01:01 Phenol (Chloraseptic [place]) 1 spray Q12HP PRN MT SORE THROAT 03/25/20 04:00 03/31/20 09:10 Thiamine HCl (Thiamine HCl) 100 mg DAILY PO 03/28/20 09:00 04/11/20 09:28 Trazodone HCl (Desyrel) 50 mg QHSP PRN PO INSOMNIA 03/23/20 11:30 03/29/20 11:14 DC 03/28/20 20:11 Allergies Coded Allergies: No Known Allergies (Verified Allergy, Unknown, 03/19/20) WAN MEJIA NP Apr 11, 2020 12:21
[2020-04-11 16:28] VITALS: BP 136/75
[2020-04-11] MEDS: diphenhydrAMINE 50MG CAP PO PRN (20:42)
[2020-04-11] MEDS: **NOTE PATIENT COMMENT** MISC XX SCH (21:00)
[2020-04-12 06:22] VITALS: BP 141/93
[2020-04-12] MEDS: FOLIC ACID 1 MG TAB PO SCH (08:07)
[2020-04-12] MEDS: THIAMINE 100 MG TAB PO SCH (08:07)
[2020-04-12] MEDS: LORazepam 1 MG TAB PO SCH (08:07)
[2020-04-12] MEDS: MULTIVITAMINS/MINERALS THERAP 1 TAB PO SCH (08:07)
[2020-04-12] MEDS: LIDOCAINE 5% (LIDODERM) PATCH TD SCH (08:08)
--- NOTE | 2020-04-12 12:14 | MHIPNPDOC ---
[facility] Progress Note Progress Note DATE OF SERVICE: 04/12/20 HISTORY: This is Day 21 of this patient's admission. To review; Patient is a 64 year old Single Male who was directly admitted from Medical to [facility] for psychotic symptoms and Delirium for what may have been a stimulant (Zuleima) intoxication. Patient was admitted on 03/23/20. Patient has a reported history of Polysubstance Use. He remains confused and unable to engage in interview. Patient was seen by Dr. Brantley (Neurology) Please see his report. 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 According to his patient had history of TIAS within the past year, and was found disorganized and confused after being found with altered mental status while driving. VITAL SIGNS: See below. NEW TEST RESULTS: . CURRENT MEDICATIONS: See below. MENTAL STATUS EXAMINATION: Patient is a 64-year old male, who is day 21 of his hospitalization. He is a 2 PC legal status. He was admitted on medical due to his altered mental status which has continued into his hospitalization on [facility]. This week, staff are seeing mild improvement in speech, cognition and mood. He is not independent in his ADLs, He is still observed on 1:1 with a sitter. He appears older than his stated age. Dressed in hospital scrubs. He makes poor eye contact. He is still confused, Speech: non-conversant, non-fluid, will answer questions but slowly, volume is quite low. He only can answer in one -word sentences but does appear to be able to answer more. Language skills are poor Thought processes including: disorganized, confused, disoriented but improving, no depression, anxiety, suicidal/homicidal ideation. Not observed with any abnormal psychotic symptoms Thought content: confused and disoriented Abstract reasoning, and computation: poor Description of associations: none observed Description of abnormal or psychotic thoughts: none observed Judgment: limited Insight: limited Orientation: alert to self and his date of , able to state his 's name and his children's names "Aren, Jaqueline and Rosie" Recent and remote memory: poor, but appears to be somewhat better Attention span and concentration: fait and appears to be improving Language: improving Fund of knowledge: improving Mood: Tearful/Flat. Affect: Blunted/Flat DIAGNOSES: 1. R/o Delirium 2. Cerebral infarction, Unspecified 3. Methamphetamine Toxicity 4. Methamphetamine Use Disorder ASSESSMENT: Patient appears to have ongoing mild improvement in cognition. He is able to follow directions, is observed with no agitation, restlessness and anxiety. He appears to calmer. We spoke with his together. He was tearful with her and attempted to have more conversations with her, but he struggles with words. Have explained to patient and Nita that Haldol, Benadryl and Ativan have been discontinued. Patient has poor sleep, Nita and patient are agreeable to Trazodone 50 mg for sleep. MRI findings : Differential considerations include: 1. subacute ischemic infarction, 2. infectious/inflammatory process 3. toxicity/metabolic etiology. Follow-up is recommended. The MRI report was faxed to Dr. Brantley (Consulting Neurologist, saw patient on 04/01/20) today. On fax cover sheet, I asked if he had other recommendations or if he felt that the EEG was still needed. MANAGEMENT PLAN: Continue medications. Placement at nursing home facility. Patient placed on ALC status. Vital Signs Vital Signs Date Time Temp Pulse Resp B/P (MAP) Pulse Ox O2 Delivery O2 Flow Rate FiO2 04/12/20 06:22 97.0 84 18 141/93 (109) 04/10/20 06:12 97 Room Air Current Medications Current Medications Medications (Trade) Dose Ordered Sig/Risa Route PRN Reason Start Time Stop Time Status Last Admin Dose Admin Acetaminophen (Tylenol Tab) 650 mg Q6HP PRN PO HEADACHE or DISCOMFORT 03/23/20 11:30 04/04/20 20:34 Al Hydrox/Mg Hydrox/Simethicone (Mylanta) 30 ml Q4HP PRN PO HEARTBURN/INDIGESTION 03/23/20 11:30 Cetylpyridinium Chloride (Cepacol) 1 joseph Q8HP PRN PO SORE THROAT 03/24/20 23:30 04/01/20 10:47 Diphenhydramine HCl (Benadryl) 25 mg Q6H PO 03/25/20 18:00 03/25/20 16:39 DC Diphenhydramine HCl (Benadryl) 25 mg Q6HP PRN PO ITCHING 03/25/20 16:45 04/12/20 09:10 DC 03/29/20 01:08 Diphenhydramine HCl (Benadryl) 50 mg QHSP PRN PO INSOMNIA 03/29/20 11:15 04/12/20 09:10 DC 04/11/20 20:42 Folic Acid (Folic Acid) 1 mg DAILY PO 03/27/20 09:00 04/12/20 08:07 Folic Acid (Folic Acid) 1 mg DAILY PO 03/28/20 09:00 03/28/20 08:21 DC Haloperidol (Haldol) 5 mg BID PO 03/29/20 09:00 04/07/20 14:17 DC 04/07/20 09:38 Haloperidol (Haldol) 5 mg QHS PO 04/07/20 21:00 04/10/20 11:37 DC 04/09/20 21:41 Lidocaine (Lidoderm Patch) 1 patch DAILY TD 03/28/20 09:00 04/12/20 08:08 Lorazepam (Ativan) 0.5 mg TID PO 03/28/20 09:00 04/03/20 08:53 DC 04/02/20 20:52 Lorazepam (Ativan) 1 mg Q8HP PRN PO ANXIETY 04/12/20 09:15 Lorazepam (Ativan) 1 mg TID PO 04/03/20 09:00 04/12/20 09:10 DC 04/12/20 08:07 Lorazepam (Ativan) 2 mg STAT STAT PO 03/23/20 15:24 03/23/20 15:25 DC 03/23/20 15:27 Magnesium Hydroxide (Milk Of Magnesia) 30 ml DAILYPRN PRN PO CONSTIPATION 03/23/20 11:30 Miscellaneous (Unresolved Clarification Entry) SEE LABEL COMMENTS DAILY XX 04/09/20 09:00 04/09/20 17:00 DC Multivitamins (Theragram-M) 1 tab DAILY PO 03/28/20 09:00 04/12/20 08:07 Non-Formulary Medication ( See Comment Field Below ) 1 DAILY@ XX 03/27/20 21:00 04/09/20 21:41 Non-Formulary Medication ( See Comment Field Below ) REMOVE LIDODERM PATCH DAILY@21 XX 03/27/20 21:00 UNV Olanzapine (ZyPREXA ZYDIS) 5 mg BID PO 03/23/20 09:00 03/29/20 11:14 DC 03/29/20 08:52 Olanzapine (ZyPREXA ZYDIS) 5 mg Q4HP PRN PO ANXIETY/AGITATION 03/23/20 11:30 04/05/20 01:01 Phenol (Chloraseptic [place]) 1 spray Q12HP PRN MT SORE THROAT 03/25/20 04:00 03/31/20 09:10 Thiamine HCl (Thiamine HCl) 100 mg DAILY PO 03/28/20 09:00 04/12/20 08:07 Trazodone HCl (Desyrel) 50 mg QHSP PRN PO INSOMNIA 03/23/20 11:30 03/29/20 11:14 DC 03/28/20 20:11 Trazodone HCl (Desyrel) 50 mg QHSP PRN PO INSOMNIA 04/12/20 11:45 Allergies Coded Allergies: No Known Allergies (Verified Allergy, Unknown, 03/19/20) WAN MEJIA NP Apr 12, 2020 12:14
[2020-04-12] MEDS: ACETAMINOPHEN TAB 650MG DOSE (2X325MG) PO PRN (15:43)
[2020-04-12 16:07] VITALS: BP 125/65
[2020-04-12] MEDS: **NOTE PATIENT COMMENT** MISC XX SCH (20:28)
[2020-04-13] MEDS: traZODone 50 MG TAB PO PRN ×2 (02:13→21:47)
[2020-04-13 06:55] VITALS: BP 132/79
[2020-04-13] MEDS: THIAMINE 100 MG TAB PO SCH (08:44)
[2020-04-13] MEDS: MULTIVITAMINS/MINERALS THERAP 1 TAB PO SCH (08:44)
[2020-04-13] MEDS: FOLIC ACID 1 MG TAB PO SCH (08:44)
[2020-04-13] MEDS: LIDOCAINE 5% (LIDODERM) PATCH TD SCH (08:47)
--- NOTE | 2020-04-13 12:07 | MHIPNPDOC ---
[facility] Progress Note Progress Note DATE OF SERVICE: 04/13/20 HISTORY: This is Day 22 of this patient's admission. To review; Patient is a 64 year old Single Male who was directly admitted from [facility] to [facility] on 03/23/20 for psychotic symptoms and Delirium for what may have been a stimulant (Zuleima) intoxication. According to his patient had history of TIAS within the past year, and was found disorganized and confused after being found with altered mental status while driving. VITAL SIGNS: See below. NEW TEST RESULTS: . CURRENT MEDICATIONS: See below. MENTAL STATUS EXAMINATION: Patient is a 64-year old male, who is day 21 of his hospitalization. He is a 2 PC legal status. He was admitted on medical due to his altered mental status which has continued into his hospitalization on [facility]. This week, staff are seeing mild improvement in speech, cognition and mood. He is mostly independent in his ADLs today, He is still observed on 1:1 with a sitter. He appears older than his stated age. Dressed in hospital scrubs. He has improved eye contact. He is not confused, and has more linear thinking Speech: non-conversant, non-fluid, will answer questions but slowly, volume is quite low. Language skills are limited Thought processes including: less disorganized, mildly confused, cognition is improving, no depression, anxiety, suicidal/homicidal ideation. Not observed with any abnormal psychotic symptoms Thought content: LESS confused and disoriented Abstract reasoning, and computation: fair Description of associations: none observed Description of abnormal or psychotic thoughts: none observed Judgment: limited Insight: limited Orientation: alert to self and his date of , able to state his 's name and his children's names "Aren, Jaqueline and Rosie" Has improved cognitive today Recent and remote memory: improving Attention span and concentration: fair and appears to be improving Language: improving Fund of knowledge: improving Mood: Tearful/Flat. Affect: Blunted/Flat DIAGNOSES: 1. 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 Methamphetamine Use Disorder 5. Methamphetamine Induced Psychosis ASSESSMENT: Patient appears to have more improvement in cognition. He is able to follow directions, is observed with no agitation, restlessness and anxiety. He appears to calmer. We spoke with his together for the fourth day in a row. He was less tearful with her and is able to have improved conversations with her, his speech is clearer. Spoke with to Dr. Brantley, he feels that this is a Drug Induced Encephalopathy. B1 and B12 levels are within normal limits. MANAGEMENT PLAN: Continue medications. [facility] jail facility[facility] Patient placed on ALC status. TIME SPENT: 20 minutes Vital Signs Vital Signs Date Time Temp Pulse Resp B/P (MAP) Pulse Ox O2 Delivery O2 Flow Rate FiO2 04/13/20 06:55 98.5 73 15 132/79 (96) 99 Room Air Current Medications Current Medications Medications (Trade) Dose Ordered Sig/Risa Route PRN Reason Start Time Stop Time Status Last Admin Dose Admin Acetaminophen (Tylenol Tab) 650 mg Q6HP PRN PO HEADACHE or DISCOMFORT 03/23/20 11:30 04/12/20 15:43 Al Hydrox/Mg Hydrox/Simethicone (Mylanta) 30 ml Q4HP PRN PO HEARTBURN/INDIGESTION 03/23/20 11:30 Cetylpyridinium Chloride (Cepacol) 1 joseph Q8HP PRN PO SORE THROAT 03/24/20 23:30 04/01/20 10:47 Diphenhydramine HCl (Benadryl) 25 mg Q6H PO 03/25/20 18:00 03/25/20 16:39 DC Diphenhydramine HCl (Benadryl) 25 mg Q6HP PRN PO ITCHING 03/25/20 16:45 04/12/20 09:10 DC 03/29/20 01:08 Diphenhydramine HCl (Benadryl) 50 mg QHSP PRN PO INSOMNIA 03/29/20 11:15 04/12/20 09:10 DC 04/11/20 20:42 Folic Acid (Folic Acid) 1 mg DAILY PO 03/27/20 09:00 04/13/20 08:44 Folic Acid (Folic Acid) 1 mg DAILY PO 03/28/20 09:00 03/28/20 08:21 DC Haloperidol (Haldol) 5 mg BID PO 03/29/20 09:00 04/07/20 14:17 DC 04/07/20 09:38 Haloperidol (Haldol) 5 mg QHS PO 04/07/20 21:00 04/10/20 11:37 DC 04/09/20 21:41 Lidocaine (Lidoderm Patch) 1 patch DAILY TD 03/28/20 09:00 04/12/20 08:08 Lorazepam (Ativan) 0.5 mg TID PO 03/28/20 09:00 04/03/20 08:53 DC 04/02/20 20:52 Lorazepam (Ativan) 1 mg Q8HP PRN PO ANXIETY 04/12/20 09:15 Lorazepam (Ativan) 1 mg TID PO 04/03/20 09:00 04/12/20 09:10 DC 04/12/20 08:07 Lorazepam (Ativan) 2 mg STAT STAT PO 03/23/20 15:24 03/23/20 15:25 DC 03/23/20 15:27 Magnesium Hydroxide (Milk Of Magnesia) 30 ml DAILYPRN PRN PO CONSTIPATION 03/23/20 11:30 Miscellaneous (Unresolved Clarification Entry) SEE LABEL COMMENTS DAILY XX 04/09/20 09:00 04/09/20 17:00 DC Multivitamins (Theragram-M) 1 tab DAILY PO 03/28/20 09:00 04/13/20 08:44 Non-Formulary Medication ( See Comment Field Below ) 1 DAILY@21 XX 03/27/20 21:00 04/12/20 20:28 Non-Formulary Medication ( See Comment Field Below ) REMOVE LIDODERM PATCH DAILY@21 XX 03/27/20 21:00 UNV Olanzapine (ZyPREXA ZYDIS) 5 mg BID PO 03/23/20 09:00 03/29/20 11:14 DC 03/29/20 08:52 Olanzapine (ZyPREXA ZYDIS) 5 mg Q4HP PRN PO ANXIETY/AGITATION 03/23/20 11:30 04/05/20 01:01 Phenol (Chloraseptic [place]) 1 spray Q12HP PRN MT SORE THROAT 03/25/20 04:00 03/31/20 09:10 Thiamine HCl (Thiamine HCl) 100 mg DAILY PO 03/28/20 09:00 04/13/20 08:44 Trazodone HCl (Desyrel) 50 mg QHSP PRN PO INSOMNIA 03/23/20 11:30 03/29/20 11:14 DC 03/28/20 20:11 Trazodone HCl (Desyrel) 50 mg QHSP PRN PO INSOMNIA 04/12/20 11:45 04/13/20 02:13 Allergies Coded Allergies: No Known Allergies (Verified Allergy, Unknown, 03/19/20) WAN MEJIA NP Apr 13, 2020 12:07
[2020-04-13] MEDS: **NOTE PATIENT COMMENT** MISC XX SCH (21:00)
[2020-04-13] MEDS: ACETAMINOPHEN TAB 650MG DOSE (2X325MG) PO PRN (21:00)
[2020-04-14 06:10] VITALS: BP 111/69
[2020-04-14] MEDS: LIDOCAINE 5% (LIDODERM) PATCH TD SCH (09:34)
[2020-04-14] MEDS: THIAMINE 100 MG TAB PO SCH (09:34)
[2020-04-14] MEDS: MULTIVITAMINS/MINERALS THERAP 1 TAB PO SCH (09:34)
[2020-04-14] MEDS: FOLIC ACID 1 MG TAB PO SCH (09:34)
--- NOTE | 2020-04-14 12:04 | MHIPNPDOC ---
[facility] Progress Note Progress Note DATE OF SERVICE: 04/14/20 HISTORY: This is Day 22 of this patient's admission. To review; Patient is a 64 year old Single Male who was directly admitted from [facility] to [facility] on 03/23/20 for psychotic symptoms and Delirium for what may have been a stimulant (Zuleima) intoxication. According to his patient had history of TIAS within the past year, and was found disorganized and confused after being found with altered mental status while driving. VITAL SIGNS: See below. NEW TEST RESULTS: . CURRENT MEDICATIONS: See below. MENTAL STATUS EXAMINATION: Patient is a 64-year old , Domiciled male. He was admitted on medical due to his altered mental status which has continued into his hospitalization on [facility]. This week, staff are seeing mild improvement in speech, cognition and mood. He is mostly independent in his ADLs today, He is still observed on 1:1 with a sitter. He appears older than his stated age. Dressed in hospital scrubs. He has improved eye contact. He is less confused, and has more linear thinking. Speech: clearer, more fluid, more conversant, will ask and answer questions but slowly, volume is improving. Language skills are improving Thought processes including: less disorganized, less confused, cognition is improving, no depression, anxiety, suicidal/homicidal ideation. Not observed with any abnormal psychotic symptoms Thought content: LESS confused and disoriented Abstract reasoning, and computation: fair Description of associations: none observed Description of abnormal or psychotic thoughts: none observed Judgment: limited Insight: limited Orientation: alert and oriented x 3 Recent and remote memory: improving Attention span and concentration: improving Language: improving Fund of knowledge: improving Mood: Euthymic. Affect: Blunted/Flat DIAGNOSES: 1. 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 Methamphetamine Use Disorder 5. Methamphetamine Induced Psychosis ASSESSMENT: Patient appears to have significantly more improvement in cognition today. During the interview I stated "I need to look up your 's phone number" patient recited his 's number. He was very conversant with her on the phone, even more so today than the past few days. He has improved conversations with her, his speech is clearer. He is observed with no agitation, restlessness and anxiety. Patient is making very good strides in cognition, while we are still looking at senior living placement, he may actually improve before he is accepted, at which time we will discharge him to his 's home which would be the family's desire. MANAGEMENT PLAN: We will continue medications. Placement at retirement facility. Patient placed on ALC status. We will continue the sitter at this time. TIME SPENT: 20 minutes Vital Signs Vital Signs Date Time Temp Pulse Resp B/P (MAP) Pulse Ox O2 Delivery O2 Flow Rate FiO2 04/14/20 06:10 98.2 83 16 111/69 (83) 99 Room Air Current Medications Current Medications Medications (Trade) Dose Ordered Sig/Risa Route PRN Reason Start Time Stop Time Status Last Admin Dose Admin Acetaminophen (Tylenol Tab) 650 mg Q6HP PRN PO HEADACHE or DISCOMFORT 03/23/20 11:30 04/13/20 21:00 Al Hydrox/Mg Hydrox/Simethicone (Mylanta) 30 ml Q4HP PRN PO HEARTBURN/INDIGESTION 03/23/20 11:30 Cetylpyridinium Chloride (Cepacol) 1 joseph Q8HP PRN PO SORE THROAT 03/24/20 23:30 04/01/20 10:47 Diphenhydramine HCl (Benadryl) 25 mg Q6H PO 03/25/20 18:00 03/25/20 16:39 DC Diphenhydramine HCl (Benadryl) 25 mg Q6HP PRN PO ITCHING 03/25/20 16:45 04/12/20 09:10 DC 03/29/20 01:08 Diphenhydramine HCl (Benadryl) 50 mg QHSP PRN PO INSOMNIA 03/29/20 11:15 04/12/20 09:10 DC 04/11/20 20:42 Folic Acid (Folic Acid) 1 mg DAILY PO 03/27/20 09:00 04/14/20 09:34 Folic Acid (Folic Acid) 1 mg DAILY PO 03/28/20 09:00 03/28/20 08:21 DC Haloperidol (Haldol) 5 mg BID PO 03/29/20 09:00 04/07/20 14:17 DC 04/07/20 09:38 Haloperidol (Haldol) 5 mg QHS PO 04/07/20 21:00 04/10/20 11:37 DC 04/09/20 21:41 Lidocaine (Lidoderm Patch) 1 patch DAILY TD 03/28/20 09:00 04/14/20 09:34 Lorazepam (Ativan) 0.5 mg TID PO 03/28/20 09:00 04/03/20 08:53 DC 04/02/20 20:52 Lorazepam (Ativan) 1 mg Q8HP PRN PO ANXIETY 04/12/20 09:15 Lorazepam (Ativan) 1 mg TID PO 04/03/20 09:00 04/12/20 09:10 DC 04/12/20 08:07 Lorazepam (Ativan) 2 mg STAT STAT PO 03/23/20 15:24 03/23/20 15:25 DC 03/23/20 15:27 Magnesium Hydroxide (Milk Of Magnesia) 30 ml DAILYPRN PRN PO CONSTIPATION 03/23/20 11:30 Miscellaneous (Unresolved Clarification Entry) SEE LABEL COMMENTS DAILY XX 04/09/20 09:00 04/09/20 17:00 DC Multivitamins (Theragram-M) 1 tab DAILY PO 03/28/20 09:00 04/14/20 09:34 Non-Formulary Medication ( See Comment Field Below ) 1 DAILY@21 XX 03/27/20 21:00 04/12/20 20:28 Non-Formulary Medication ( See Comment Field Below ) REMOVE LIDODERM PATCH DAILY@21 XX 03/27/20 21:00 UNV Olanzapine (ZyPREXA ZYDIS) 5 mg BID PO 03/23/20 09:00 03/29/20 11:14 DC 03/29/20 08:52 Olanzapine (ZyPREXA ZYDIS) 5 mg Q4HP PRN PO ANXIETY/AGITATION 03/23/20 11:30 04/05/20 01:01 Phenol (Chloraseptic [place]) 1 spray Q12HP PRN MT SORE THROAT 03/25/20 04:00 03/31/20 09:10 Thiamine HCl (Thiamine HCl) 100 mg DAILY PO 03/28/20 09:00 04/14/20 09:34 Trazodone HCl (Desyrel) 50 mg QHSP PRN PO INSOMNIA 03/23/20 11:30 03/29/20 11:14 DC 03/28/20 20:11 Trazodone HCl (Desyrel) 50 mg QHSP PRN PO INSOMNIA 04/12/20 11:45 04/13/20 21:47 Allergies Coded Allergies: No Known Allergies (Verified Allergy, Unknown, 03/19/20) WAN MEJIA NP Apr 14, 2020 12:04
[2020-04-14] MEDS ORDERED: CEPACOL LOZENGE PO PRN (13:00)
[2020-04-14 16:34] VITALS: BP 128/73
[2020-04-14] MEDS: **NOTE PATIENT COMMENT** MISC XX SCH (21:02)
[2020-04-15] MEDS: LORazepam 1 MG TAB PO PRN (01:58)
[2020-04-15] MEDS: traZODone 50 MG TAB PO PRN ×2 (01:58→20:47)
[2020-04-15 06:37] VITALS: BP 129/76
[2020-04-15] MEDS: THIAMINE 100 MG TAB PO SCH (09:28)
[2020-04-15] MEDS: FOLIC ACID 1 MG TAB PO SCH (09:28)
[2020-04-15] MEDS: LIDOCAINE 5% (LIDODERM) PATCH TD SCH (09:28)
[2020-04-15] MEDS: MULTIVITAMINS/MINERALS THERAP 1 TAB PO SCH (09:28)
[2020-04-15 16:19] VITALS: BP 131/68
[2020-04-15] MEDS: ACETAMINOPHEN TAB 650MG DOSE (2X325MG) PO PRN (19:00)
[2020-04-15] MEDS: **NOTE PATIENT COMMENT** MISC XX SCH (20:46)
[2020-04-16] MEDS: LORazepam 1 MG TAB PO PRN (02:07)
[2020-04-16] MEDS: ACETAMINOPHEN TAB 650MG DOSE (2X325MG) PO PRN (02:07)
[2020-04-16 06:31] VITALS: BP 150/75
[2020-04-16] MEDS: FOLIC ACID 1 MG TAB PO SCH (07:20)
[2020-04-16] MEDS: THIAMINE 100 MG TAB PO SCH (07:20)
[2020-04-16] MEDS: MULTIVITAMINS/MINERALS THERAP 1 TAB PO SCH (07:20)
[2020-04-16] MEDS: LIDOCAINE 5% (LIDODERM) PATCH TD SCH (07:20)
[2020-04-16 16:25] VITALS: BP 128/72
[2020-04-16] MEDS: OLANZapine ORAL DISINTEGRATING TAB 5MG PO PRN (20:04)
[2020-04-16] MEDS: traZODone 50 MG TAB PO PRN (20:04)
[2020-04-16] MEDS: **NOTE PATIENT COMMENT** MISC XX SCH (20:07)
[2020-04-17 06:27] VITALS: BP 151/88
[2020-04-17] MEDS: MULTIVITAMINS/MINERALS THERAP 1 TAB PO SCH (09:26)
[2020-04-17] MEDS: THIAMINE 100 MG TAB PO SCH (09:27)
[2020-04-17] MEDS: FOLIC ACID 1 MG TAB PO SCH (09:27)
[2020-04-17] MEDS: LIDOCAINE 5% (LIDODERM) PATCH TD SCH (09:27)
--- NOTE | 2020-04-17 12:11 | MHIPNPDOC ---
[facility] Progress Note Progress Note DATE OF SERVICE: 04/17/20 kd is a 64 year old Single Male who was directly admitted from Medical to [facility] on 03/23/20 for psychotic symptoms and Delirium for what may have been a stimulant (Zuleima) intoxication. According to his patient had history of TIAS within the past year, and was found disorganized and confused after being found with altered mental status while driving. VITAL SIGNS: See below. NEW TEST RESULTS: . CURRENT MEDICATIONS: See below. MENTAL STATUS EXAMINATION: Patient is a 64-year old , Domiciled male. He was admitted on medical due to his altered mental status which has continued into his hospitalization on [facility]. This week, staff are seeing mild improvement in speech, cognition and mood. He is mostly independent in his ADLs today, He is still observed on 1:1 with a sitter. He appears older than his stated age. Dressed in hospital scrubs. He has improved eye contact. He is less confused, and has more linear thinking. Speech: clearer, more fluid, more conversant, will ask and answer questions but he appears to be confabulating at times. Language skills are improving Thought processes including: less disorganized, less confused, cognition is improving, no depression, anxiety, suicidal/homicidal ideation. Not observed with any abnormal psychotic symptoms Thought content: LESS confused and disoriented, but has not abnormal psychiatric symptoms, he is very irritable at this time Abstract reasoning, and computation: fair Description of associations: none observed Description of abnormal or psychotic thoughts: none observed Judgment: limited to fair Insight: limited to fair at times Orientation: alert and oriented x 3 Recent and remote memory: improving Attention span and concentration: improving Language: improving Fund of knowledge: improving Mood: Irritable. Affect: Blunted/Flat DIAGNOSES: 1. 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 Methamphetamine Use Disorder 5. Methamphetamine Induced Psychosis ASSESSMENT: Patient appears to have significantly more improvement in cognition today. Patient spoke with his on the phone he was more conversant on the phone, even more so today than the past few days. He has at times, in his conversations, where he trails off and then doesn't finish his thoughts. He has improved conversations with her, his speech is clearer. He is observed with mild irritability and mild agitation. Patient has improved cognition although he appears angry that he has not been discharged. He is observed paci ng the hallways, his states that this is what he does normally at home. At this time, the family is aware that patient is improving and that placement in a intermediate may not be warranted. If patient is stable we will discharge him to his 's home. MANAGEMENT PLAN: We will continue medications. [facility] Patient placed on ALC status. We will trial patient on every 15 minute observations for a few hours. Patient will be discharged when he is stable. TIME SPENT: 15 minutes Vital Signs Vital Signs Date Time Temp Pulse Resp B/P (MAP) Pulse Ox O2 Delivery O2 Flow Rate FiO2 04/17/20 06:27 98.4 63 14 151/88 (109) 100 Room Air Current Medications Current Medications Medications (Trade) Dose Ordered Sig/Risa Route PRN Reason Start Time Stop Time Status Last Admin Dose Admin Acetaminophen (Tylenol Tab) 650 mg Q6HP PRN PO HEADACHE or DISCOMFORT 03/23/20 11:30 04/16/20 02:07 Al Hydrox/Mg Hydrox/Simethicone (Mylanta) 30 ml Q4HP PRN PO HEARTBURN/INDIGESTION 03/23/20 11:30 Cetylpyridinium Chloride (Cepacol) 1 joseph Q4HP PRN PO COUGH 04/14/20 13:00 Cetylpyridinium Chloride (Cepacol) 1 joseph Q8HP PRN PO SORE THROAT 03/24/20 23:30 04/14/20 13:00 DC 04/01/20 10:47 Diphenhydramine HCl (Benadryl) 25 mg Q6H PO 03/25/20 18:00 03/25/20 16:39 DC Diphenhydramine HCl (Benadryl) 25 mg Q6HP PRN PO ITCHING 03/25/20 16:45 04/12/20 09:10 DC 03/29/20 01:08 Diphenhydramine HCl (Benadryl) 50 mg QHSP PRN PO INSOMNIA 03/29/20 11:15 04/12/20 09:10 DC 04/11/20 20:42 Folic Acid (Folic Acid) 1 mg DAILY PO 03/27/20 09:00 04/17/20 09:27 Folic Acid (Folic Acid) 1 mg DAILY PO 03/28/20 09:00 03/28/20 08:21 DC Haloperidol (Haldol) 5 mg BID PO 03/29/20 09:00 04/07/20 14:17 DC 04/07/20 09:38 Haloperidol (Haldol) 5 mg QHS PO 04/07/20 21:00 04/10/20 11:37 DC 04/09/20 21:41 Lidocaine (Lidoderm Patch) 1 patch DAILY TD 03/28/20 09:00 04/17/20 09:27 Lorazepam (Ativan) 0.5 mg TID PO 03/28/20 09:00 04/03/20 08:53 DC 04/02/20 20:52 Lorazepam (Ativan) 1 mg Q8HP PRN PO ANXIETY 04/12/20 09:15 04/16/20 02:07 Lorazepam (Ativan) 1 mg TID PO 04/03/20 09:00 04/12/20 09:10 DC 04/12/20 08:07 Lorazepam (Ativan) 2 mg STAT STAT PO 03/23/20 15:24 03/23/20 15:25 DC 03/23/20 15:27 Magnesium Hydroxide (Milk Of Magnesia) 30 ml DAILYPRN PRN PO CONSTIPATION 03/23/20 11:30 Miscellaneous (Unresolved Clarification Entry) SEE LABEL COMMENTS DAILY XX 04/09/20 09:00 04/09/20 17:00 DC Multivitamins (Theragram-M) 1 tab DAILY PO 03/28/20 09:00 04/17/20 09:26 Non-Formulary Medication ( See Comment Field Below ) 1 DAILY@ XX 03/27/20 21:00 04/16/20 20:07 Non-Formulary Medication ( See Comment Field Below ) REMOVE LIDODERM PATCH DAILY@ XX 03/27/20 21:00 UNV Olanzapine (ZyPREXA ZYDIS) 5 mg BID PO 03/23/20 09:00 03/29/20 11:14 DC 03/29/20 08:52 Olanzapine (ZyPREXA ZYDIS) 5 mg Q4HP PRN PO ANXIETY/AGITATION 03/23/20 11:30 04/16/20 20:04 Phenol (Chloraseptic [place]) 1 spray Q12HP PRN MT SORE THROAT 03/25/20 04:00 04/14/20 12:57 DC 03/31/20 09:10 Thiamine HCl (Thiamine HCl) 100 mg DAILY PO 03/28/20 09:00 04/17/20 09:27 Trazodone HCl (Desyrel) 50 mg QHSP PRN PO INSOMNIA 03/23/20 11:30 03/29/20 11:14 DC 03/28/20 20:11 Trazodone HCl (Desyrel) 50 mg QHSP PRN PO INSOMNIA 04/12/20 11:45 04/16/20 20:04 Allergies Coded Allergies: No Known Allergies (Verified Allergy, Unknown, 03/19/20) WAN MEJIA NP Apr 17, 2020 12:11
[2020-04-17] MEDS: **NOTE PATIENT COMMENT** MISC XX SCH (20:16)
[2020-04-17] MEDS: OLANZapine ORAL DISINTEGRATING TAB 5MG PO PRN (20:17)
[2020-04-17] MEDS ORDERED: traZODone 100 MG TAB PO SCH (21:00)
[2020-04-18] MEDS: LORazepam 1 MG TAB PO PRN ×2 (04:37→15:20)
[2020-04-18] MEDS: ACETAMINOPHEN TAB 650MG DOSE (2X325MG) PO PRN ×2 (04:37→21:02)
[2020-04-18 06:34] VITALS: BP 127/80
[2020-04-18] MEDS: LIDOCAINE 5% (LIDODERM) PATCH TD SCH (09:00)
[2020-04-18] MEDS: THIAMINE 100 MG TAB PO SCH (09:19)
[2020-04-18] MEDS: MULTIVITAMINS/MINERALS THERAP 1 TAB PO SCH (09:19)
[2020-04-18] MEDS: FOLIC ACID 1 MG TAB PO SCH (09:19)
[2020-04-18] MEDS ORDERED: QUEtiapine FUMARATE 50 MG TAB PO ONE (16:00)
--- NOTE | 2020-04-18 16:04 | MHIPNPDOC ---
[facility] Progress Note Progress Note DATE OF SERVICE: 04/18/20 HISTORY: Patient is a 64 year old Single Male who was directly admitted from [facility] to [facility] on 03/23/20 for psychotic symptoms and Delirium for what may have been a stimulant (Zuleima) intoxication. According to his patient had history of TIAS within the past year, and was found disorganized and confused after being found with altered mental status while driving. VITAL SIGNS: See below. NEW TEST RESULTS: . CURRENT MEDICATIONS: See below. MENTAL STATUS EXAMINATION: Patient is a 64-year old , Domiciled male. He was admitted on medical due to his altered mental status which has continued into his hospitalization on [facility]. This week, staff are seeing mild improvement in speech, cognition and mood. He is mostly independent in his ADLs today, He is still observed on 1:1 with a sitter. He appears older than his stated age. Dressed in hospital scrubs. He has improved eye contact. He is less confused, and has more linear thinking. Speech: clearer, more fluid, more conversant, will ask and answer questions but he appears to be confabulating at times. Language skills are improving Thought processes including: less disorganized, less confused, cognition is improving, no depression, anxiety, suicidal/homicidal ideation. Not observed with any abnormal psychotic symptoms Thought content: patient is irritable and agitated Abstract reasoning, and computation: fair Description of associations: he believes that he is at the [employer], at wedding, believes that his is stupid for losing their money Description of abnormal or psychotic thoughts: patient is very agitated, having paranoia and confusion Judgment: limited Insight: limited Orientation: alert and oriented x 3 Recent and remote memory: improving Attention span and concentration: improving Language: improving Fund of knowledge: improving Mood: Irritable and agitated. Affect: Blunted/Flat DIAGNOSES: 1. 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 Methamphetamine Use Disorder 5. Methamphetamine Induced Psychosis ASSESSMENT: Patient is agitated and becomes more agitated whenever he is reoriented to why he is hospitalized Patient spoke with his on the phone he was more conversant on the phone, but angry with her He has improved conversations with her, his speech is clearer. He is observed with irritability and mild agitation. Patient has improved cognition although he appears angry that he has not been discharged. He is observed pacing the hallways, MANAGEMENT PLAN: We will continue medications. Trazodone discontinued, Ativan 1 mg BID added due to agitation, Seroquel 100 mg at HS for insomnia. Placement at detention facility. Patient placed on ALC status. Patient with a sitter due to elopement precaution and confusion Patient will be discharged when he is stable. TIME SPENT: 15 minutes Vital Signs Vital Signs Date Time Temp Pulse Resp B/P (MAP) Pulse Ox O2 Delivery O2 Flow Rate FiO2 04/18/20 06:34 98.0 93 14 127/80 (96) 100 Room Air Current Medications Current Medications Medications (Trade) Dose Ordered Sig/Risa Route PRN Reason Start Time Stop Time Status Last Admin Dose Admin Acetaminophen (Tylenol Tab) 650 mg Q6HP PRN PO HEADACHE or DISCOMFORT 03/23/20 11:30 04/18/20 04:37 Al Hydrox/Mg Hydrox/Simethicone (Mylanta) 30 ml Q4HP PRN PO HEARTBURN/INDIGESTION 03/23/20 11:30 Cetylpyridinium Chloride (Cepacol) 1 joseph Q4HP PRN PO COUGH 04/14/20 13:00 Cetylpyridinium Chloride (Cepacol) 1 joseph Q8HP PRN PO SORE THROAT 03/24/20 23:30 04/14/20 13:00 DC 04/01/20 10:47 Diphenhydramine HCl (Benadryl) 25 mg Q6H PO 03/25/20 18:00 03/25/20 16:39 DC Diphenhydramine HCl (Benadryl) 25 mg Q6HP PRN PO ITCHING 03/25/20 16:45 04/12/20 09:10 DC 03/29/20 01:08 Diphenhydramine HCl (Benadryl) 50 mg QHSP PRN PO INSOMNIA 03/29/20 11:15 04/12/20 09:10 DC 04/11/20 20:42 Folic Acid (Folic Acid) 1 mg DAILY PO 03/27/20 09:00 04/18/20 09:19 Folic Acid (Folic Acid) 1 mg DAILY PO 03/28/20 09:00 03/28/20 08:21 DC Haloperidol (Haldol) 5 mg BID PO 03/29/20 09:00 04/07/20 14:17 DC 04/07/20 09:38 Haloperidol (Haldol) 5 mg QHS PO 04/07/20 21:00 04/10/20 11:37 DC 04/09/20 21:41 Lidocaine (Lidoderm Patch) 1 patch DAILY TD 03/28/20 09:00 04/17/20 09:27 Lorazepam (Ativan) 0.5 mg TID PO 03/28/20 09:00 04/03/20 08:53 DC 04/02/20 20:52 Lorazepam (Ativan) 1 mg BID PO 04/18/20 21:00 Lorazepam (Ativan) 1 mg Q8HP PRN PO ANXIETY 04/12/20 09:15 04/18/20 04:37 Lorazepam (Ativan) 1 mg TID PO 04/03/20 09:00 04/12/20 09:10 DC 04/12/20 08:07 Lorazepam (Ativan) 2 mg STAT STAT PO 03/23/20 15:24 03/23/20 15:25 DC 03/23/20 15:27 Magnesium Hydroxide (Milk Of Magnesia) 30 ml DAILYPRN PRN PO CONSTIPATION 03/23/20 11:30 Miscellaneous (Unresolved Clarification Entry) SEE LABEL COMMENTS DAILY XX 04/09/20 09:00 04/09/20 17:00 DC Multivitamins (Theragram-M) 1 tab DAILY PO 03/28/20 09:00 04/18/20 09:19 Non-Formulary Medication ( See Comment Field Below ) 1 DAILY@ XX 03/27/20 21:00 04/17/20 20:16 Non-Formulary Medication ( See Comment Field Below ) REMOVE LIDODERM PATCH DAILY@21 XX 03/27/20 21:00 UNV Olanzapine (ZyPREXA ZYDIS) 5 mg BID PO 03/23/20 09:00 03/29/20 11:14 DC 03/29/20 08:52 Olanzapine (ZyPREXA ZYDIS) 5 mg Q4HP PRN PO ANXIETY/AGITATION 03/23/20 11:30 04/17/20 20:17 Phenol (Chloraseptic [place]) 1 spray Q12HP PRN MT SORE THROAT 03/25/20 04:00 04/14/20 12:57 DC 03/31/20 09:10 Quetiapine Fumarate (SEROquel) 100 mg QHS PO 04/18/20 21:00 Thiamine HCl (Thiamine HCl) 100 mg DAILY PO 03/28/20 09:00 04/18/20 09:19 Trazodone HCl (Desyrel) 50 mg QHSP PRN PO INSOMNIA 03/23/20 11:30 03/29/20 11:14 DC 03/28/20 20:11 Trazodone HCl (Desyrel) 50 mg QHSP PRN PO INSOMNIA 04/12/20 11:45 04/17/20 12:20 DC 04/16/20 20:04 Trazodone HCl (Desyrel) 100 mg QHS PO 04/17/20 21:00 04/18/20 09:03 DC 04/17/20 20:17 Allergies Coded Allergies: No Known Allergies (Verified Allergy, Unknown, 03/19/20) WAN MEJIA NP Apr 18, 2020 16:04
[2020-04-18] MEDS ORDERED: QUEtiapine FUMARATE 100 MG TAB PO SCH (21:00)
[2020-04-18] MEDS: **NOTE PATIENT COMMENT** MISC XX SCH (21:00)
[2020-04-18] MEDS: LORazepam 1 MG TAB PO SCH (21:01)
[2020-04-19] MEDS: LORazepam 1 MG TAB PO PRN (00:59)
[2020-04-19 06:56] VITALS: BP 110/68
[2020-04-19] MEDS: MULTIVITAMINS/MINERALS THERAP 1 TAB PO SCH (08:36)
[2020-04-19] MEDS: FOLIC ACID 1 MG TAB PO SCH (08:36)
[2020-04-19] MEDS: THIAMINE 100 MG TAB PO SCH (08:36)
[2020-04-19] MEDS: LIDOCAINE 5% (LIDODERM) PATCH TD SCH (08:36)
[2020-04-19] MEDS: LORazepam 1 MG TAB PO SCH (08:36)
--- NOTE | 2020-04-19 11:56 | MHIPNPDOC ---
[facility] Progress Note Progress Note DATE OF SERVICE: 04/19/20 HISTORY: Patient is a 64 year old Single Male who was directly admitted from [facility] to [facility] on 03/23/20 for psychotic symptoms and Delirium for what may have been a stimulant (Zuleima) intoxication. According to his patient had history of TIAS within the past year, and was found disorganized and confused after being found with altered mental status while driving. VITAL SIGNS: See below. NEW TEST RESULTS: . CURRENT MEDICATIONS: See below. MENTAL STATUS EXAMINATION: Patient is a 64-year old , Domiciled male. He was admitted on medical due to his altered mental status which has continued into his hospitalization on [facility]. This week, staff are seeing mild improvement in speech, cognition and mood. He is still observed on 1:1 with a sitter. He appears older than his stated age. Dressed in hospital scrubs. He has improved eye contact. He is less confused, and has more linear thinking. Appears to be more restless today Speech: Spontaneous, hesitant at times, slurred Language skills are improving Thought processes including: Mild confusion, cognition is improving, reports depression, anxiety, suicidal/homicidal ideation. Appears restless, disorganized, scattered thinking Thought content: patient is mildly irritable, agitated on the phone with his Abstract reasoning, and computation: fair Description of associations: None Description of abnormal or psychotic thoughts: patient is very agitated Judgment: limited Insight: limited Orientation: alert and oriented x 2. I am at [facility] in [place] Recent and remote memory: improving Attention span and concentration: improving Language: improving Fund of knowledge: declining Mood: Irritable and agitated. Affect: Blunted/Flat DIAGNOSES: 1. 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 Methamphetamine Use Disorder 5. Methamphetamine Induced Psychosis ASSESSMENT: Patient is restless, is psychomotor agitated and he confabulates stories about his and his children. He appears to be upset about money. Patient was unable to speak with his on the phone During the interview, he took off his shirts and stated that he was hot in the room. He was able to place his short sleeve shirt on without difficulty, but having difficulty putting his long sleeve shirt on. It appears that his cognition is poor today. Demonstrates that he has difficulty reading numbers. Today he is showing increased confusion. "I don't want her to lose her job, I pay the taxes, no one pays it but me. I can show you every tax bill. I would love to spend all my own money too." MANAGEMENT PLAN: We will continue medications. Seroquel increased to 200 mg at HS for insomnia. Seroquel 50 mg in AM. Placement at senior living facility. Patient placed on ALC status. Patient with a sitter due to elopement precaution and confusion Patient will be transferred to senior living facility when bed is available. TIME SPENT: 20 minutes Vital Signs Vital Signs Date Time Temp Pulse Resp B/P (MAP) Pulse Ox O2 Delivery O2 Flow Rate FiO2 04/19/20 06:56 98.0 95 12 110/68 (82) 98 04/18/20 06:34 Room Air Current Medications Current Medications Medications (Trade) Dose Ordered Sig/Risa Route PRN Reason Start Time Stop Time Status Last Admin Dose Admin Acetaminophen (Tylenol Tab) 650 mg Q6HP PRN PO HEADACHE or DISCOMFORT 03/23/20 11:30 04/18/20 21:02 Al Hydrox/Mg Hydrox/Simethicone (Mylanta) 30 ml Q4HP PRN PO HEARTBURN/INDIGESTION 03/23/20 11:30 Cetylpyridinium Chloride (Cepacol) 1 joseph Q4HP PRN PO COUGH 04/14/20 13:00 Cetylpyridinium Chloride (Cepacol) 1 joseph Q8HP PRN PO SORE THROAT 03/24/20 23:30 04/14/20 13:00 DC 04/01/20 10:47 Diphenhydramine HCl (Benadryl) 25 mg Q6H PO 03/25/20 18:00 03/25/20 16:39 DC Diphenhydramine HCl (Benadryl) 25 mg Q6HP PRN PO ITCHING 03/25/20 16:45 04/12/20 09:10 DC 03/29/20 01:08 Diphenhydramine HCl (Benadryl) 50 mg QHSP PRN PO INSOMNIA 03/29/20 11:15 04/12/20 09:10 DC 04/11/20 20:42 Folic Acid (Folic Acid) 1 mg DAILY PO 03/27/20 09:00 04/19/20 08:36 Folic Acid (Folic Acid) 1 mg DAILY PO 03/28/20 09:00 03/28/20 08:21 DC Haloperidol (Haldol) 5 mg BID PO 03/29/20 09:00 04/07/20 14:17 DC 04/07/20 09:38 Haloperidol (Haldol) 5 mg QHS PO 04/07/20 21:00 04/10/20 11:37 DC 04/09/20 21:41 Lidocaine (Lidoderm Patch) 1 patch DAILY TD 03/28/20 09:00 04/19/20 08:36 Lorazepam (Ativan) 0.5 mg TID PO 03/28/20 09:00 04/03/20 08:53 DC 04/02/20 20:52 Lorazepam (Ativan) 1 mg BID PO 04/18/20 21:00 04/19/20 08:36 Lorazepam (Ativan) 1 mg Q8HP PRN PO ANXIETY 04/12/20 09:15 04/19/20 00:59 Lorazepam (Ativan) 1 mg TID PO 04/03/20 09:00 04/12/20 09:10 DC 04/12/20 08:07 Lorazepam (Ativan) 2 mg STAT STAT PO 03/23/20 15:24 03/23/20 15:25 DC 03/23/20 15:27 Magnesium Hydroxide (Milk Of Magnesia) 30 ml DAILYPRN PRN PO CONSTIPATION 03/23/20 11:30 Miscellaneous (Unresolved Clarification Entry) SEE LABEL COMMENTS DAILY XX 04/09/20 09:00 04/09/20 17:00 DC Multivitamins (Theragram-M) 1 tab DAILY PO 03/28/20 09:00 04/19/20 08:36 Non-Formulary Medication ( See Comment Field Below ) 1 DAILY@ XX 03/27/20 21:00 04/17/20 20:16 Non-Formulary Medication ( See Comment Field Below ) REMOVE LIDODERM PATCH DAILY@ XX 03/27/20 21:00 UNV Olanzapine (ZyPREXA ZYDIS) 5 mg BID PO 03/23/20 09:00 03/29/20 11:14 DC 03/29/20 08:52 Olanzapine (ZyPREXA ZYDIS) 5 mg Q4HP PRN PO ANXIETY/AGITATION 03/23/20 11:30 04/17/20 20:17 Phenol (Chloraseptic [place]) 1 spray Q12HP PRN MT SORE THROAT 03/25/20 04:00 04/14/20 12:57 DC 03/31/20 09:10 Quetiapine Fumarate (SEROquel) 100 mg QHS PO 04/18/20 21:00 04/19/20 08:41 DC 04/18/20 21:01 Quetiapine Fumarate (SEROquel) 200 mg QHS PO 04/19/20 21:00 Thiamine HCl (Thiamine HCl) 100 mg DAILY PO 03/28/20 09:00 04/19/20 08:36 Trazodone HCl (Desyrel) 50 mg QHSP PRN PO INSOMNIA 03/23/20 11:30 03/29/20 11:14 DC 03/28/20 20:11 Trazodone HCl (Desyrel) 50 mg QHSP PRN PO INSOMNIA 04/12/20 11:45 04/17/20 12:20 DC 04/16/20 20:04 Trazodone HCl (Desyrel) 100 mg QHS PO 04/17/20 21:00 04/18/20 09:03 DC 04/17/20 20:17 Allergies Coded Allergies: No Known Allergies (Verified Allergy, Unknown, 03/19/20) WAN MEJIA NP Apr 19, 2020 11:56
[2020-04-19] MEDS ORDERED: QUEtiapine FUMARATE 50 MG TAB PO ONE (13:00)
[2020-04-19 15:32] VITALS: BP 98/66
[2020-04-19] MEDS: ACETAMINOPHEN TAB 650MG DOSE (2X325MG) PO PRN (16:08)
[2020-04-19] MEDS: QUEtiapine FUMARATE 200 MG TAB PO SCH (20:02)
[2020-04-19] MEDS: **NOTE PATIENT COMMENT** MISC XX SCH (20:32)
[2020-04-20 06:25] VITALS: BP_SYST 121; BP_SYST 131; BP_DIAS 79; BP_DIAS 91
[2020-04-20] MEDS: MULTIVITAMINS/MINERALS THERAP 1 TAB PO SCH (08:37)
[2020-04-20] MEDS: THIAMINE 100 MG TAB PO SCH (08:37)
[2020-04-20] MEDS: QUEtiapine FUMARATE 50 MG TAB PO SCH (08:37)
[2020-04-20] MEDS: FOLIC ACID 1 MG TAB PO SCH (08:37)
[2020-04-20] MEDS: LIDOCAINE 5% (LIDODERM) PATCH TD SCH (08:38)
[2020-04-20] MEDS: LORazepam 1 MG TAB PO PRN (11:18)
--- NOTE | 2020-04-20 12:02 | MHIPNPDOC ---
[facility] Progress Note Progress Note DATE OF SERVICE: 04/20/20 HISTORY: Patient is a 64 year old Single Male who was directly admitted from [facility] to [facility] on 03/23/20 for psychotic symptoms and Delirium for what may have been a stimulant (Zuleima) intoxication. According to his patient had history of TIAS within the past year, and was found disorganized and confused after being found with altered mental status while driving. VITAL SIGNS: See below. NEW TEST RESULTS: . CURRENT MEDICATIONS: See below. MENTAL STATUS EXAMINATION: Patient is a 64-year old , Domiciled male. He was admitted on medical due to his altered mental status which has continued into his hospitalization on [facility]. This week, staff are seeing mild improvement in speech, cognition and mood. He is still observed on 1:1 with a sitter. He appears older than his stated age. Dressed in hospital scrubs. He has improved eye contact. He is mildly confused, and has more linear thinking. According to his sitter, he has become more restless within the past hour as he has a new roommate and is in his belongings and has to be directed away from peer's side of the room. Speech: Spontaneous, observed with some aphasia Language skills are improving Thought processes including: confusion, cognition is improving, reports depression, anxiety, suicidal/homicidal ideation. Appears disorganized, scattered thinking Thought content: confusion Abstract reasoning, and computation: fair Description of associations: None Description of abnormal or psychotic thoughts: confabulation in his conversations Judgment: limited Insight: limited Orientation: alert and oriented x 2. Recent and remote memory: limited Attention span and concentration: limited Language: limited Fund of knowledge: declining Mood: mildly irritable. Affect: Blunted/Flat DIAGNOSES: 1. 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 Methamphetamine Use Disorder 5. Methamphetamine Induced Psychosis ASSESSMENT: Patient is observed to be less restless in the interview. He was not able to call his today due to her loss of her mother yesterday. Patient is unaware of this news. Patient demonstrates poor cognition, he asked this provider, "[place] [address] Redirected patient to who I am. I informed that he was not going to calling his today and he asked. "Are the kids o.k.? " Redirected and told the patient that his was busy at work, he verbalized understanding. He is not observed with any delusional thoughts or auditory/visual hallucinations but he is confused and has mild paranoia, stating "I really don't like that mohini, I could kick him." Redirected to not hurt anyone and he states "No, I won't" MANAGEMENT PLAN: We will continue medications. Seroquel increased to 200 mg at HS for insomnia. Seroquel 50 mg in AM. Placement at half-way facility. Patient placed on ALC status. Patient with a sitter due to elopement precaution and confusion Patient will be transferred to half-way facility when bed is available. TIME SPENT: 20 minutes Vital Signs Vital Signs Date Time Temp Pulse Resp B/P (MAP) Pulse Ox O2 Delivery O2 Flow Rate FiO2 04/20/20 06:25 98.0 92 14 121/79 (93) Room Air 04/19/20 06:56 98 Current Medications Current Medications Medications (Trade) Dose Ordered Sig/Risa Route PRN Reason Start Time Stop Time Status Last Admin Dose Admin Acetaminophen (Tylenol Tab) 650 mg Q6HP PRN PO HEADACHE or DISCOMFORT 03/23/20 11:30 04/19/20 16:08 Al Hydrox/Mg Hydrox/Simethicone (Mylanta) 30 ml Q4HP PRN PO HEARTBURN/INDIGESTION 03/23/20 11:30 Cetylpyridinium Chloride (Cepacol) 1 joseph Q4HP PRN PO COUGH 04/14/20 13:00 Cetylpyridinium Chloride (Cepacol) 1 joseph Q8HP PRN PO SORE THROAT 03/24/20 23:30 04/14/20 13:00 DC 04/01/20 10:47 Diphenhydramine HCl (Benadryl) 25 mg Q6H PO 03/25/20 18:00 03/25/20 16:39 DC Diphenhydramine HCl (Benadryl) 25 mg Q6HP PRN PO ITCHING 03/25/20 16:45 04/12/20 09:10 DC 03/29/20 01:08 Diphenhydramine HCl (Benadryl) 50 mg QHSP PRN PO INSOMNIA 03/29/20 11:15 04/12/20 09:10 DC 04/11/20 20:42 Folic Acid (Folic Acid) 1 mg DAILY PO 03/27/20 09:00 04/20/20 08:37 Folic Acid (Folic Acid) 1 mg DAILY PO 03/28/20 09:00 03/28/20 08:21 DC Haloperidol (Haldol) 5 mg BID PO 03/29/20 09:00 04/07/20 14:17 DC 04/07/20 09:38 Haloperidol (Haldol) 5 mg QHS PO 04/07/20 21:00 04/10/20 11:37 DC 04/09/20 21:41 Lidocaine (Lidoderm Patch) 1 patch DAILY TD 03/28/20 09:00 04/19/20 08:36 Lorazepam (Ativan) 0.5 mg TID PO 03/28/20 09:00 04/03/20 08:53 DC 04/02/20 20:52 Lorazepam (Ativan) 1 mg BID PO 04/18/20 21:00 04/19/20 12:59 DC 04/19/20 08:36 Lorazepam (Ativan) 1 mg Q8HP PRN PO ANXIETY 04/12/20 09:15 04/20/20 11:18 Lorazepam (Ativan) 1 mg TID PO 04/03/20 09:00 04/12/20 09:10 DC 04/12/20 08:07 Lorazepam (Ativan) 2 mg STAT STAT PO 03/23/20 15:24 03/23/20 15:25 DC 03/23/20 15:27 Magnesium Hydroxide (Milk Of Magnesia) 30 ml DAILYPRN PRN PO CONSTIPATION 03/23/20 11:30 Miscellaneous (Unresolved Clarification Entry) SEE LABEL COMMENTS DAILY XX 04/09/20 09:00 04/09/20 17:00 DC Multivitamins (Theragram-M) 1 tab DAILY PO 03/28/20 09:00 04/20/20 08:37 Non-Formulary Medication ( See Comment Field Below ) 1 DAILY@ XX 03/27/20 21:00 04/17/20 20:16 Non-Formulary Medication ( See Comment Field Below ) REMOVE LIDODERM PATCH DAILY@ XX 03/27/20 21:00 UNV Olanzapine (ZyPREXA ZYDIS) 5 mg BID PO 03/23/20 09:00 03/29/20 11:14 DC 03/29/20 08:52 Olanzapine (ZyPREXA ZYDIS) 5 mg Q4HP PRN PO ANXIETY/AGITATION 03/23/20 11:30 04/17/20 20:17 Phenol (Chloraseptic [place]) 1 spray Q12HP PRN MT SORE THROAT 03/25/20 04:00 04/14/20 12:57 DC 03/31/20 09:10 Quetiapine Fumarate (SEROquel) 50 mg QAM PO 04/20/20 09:00 04/20/20 08:37 Quetiapine Fumarate (SEROquel) 100 mg QHS PO 04/18/20 21:00 04/19/20 08:41 DC 04/18/20 21:01 Quetiapine Fumarate (SEROquel) 200 mg QHS PO 04/19/20 21:00 04/19/20 20:02 Thiamine HCl (Thiamine HCl) 100 mg DAILY PO 03/28/20 09:00 04/20/20 08:37 Trazodone HCl (Desyrel) 50 mg QHSP PRN PO INSOMNIA 03/23/20 11:30 03/29/20 11:14 DC 03/28/20 20:11 Trazodone HCl (Desyrel) 50 mg QHSP PRN PO INSOMNIA 04/12/20 11:45 04/17/20 12:20 DC 04/16/20 20:04 Trazodone HCl (Desyrel) 100 mg QHS PO 04/17/20 21:00 04/18/20 09:03 DC 04/17/20 20:17 Allergies Coded Allergies: No Known Allergies (Verified Allergy, Unknown, 03/19/20) WAN MEJIA PUMP INSTALLATION AND SERVICER Apr 20, 2020 12:02
[2020-04-20 18:21] VITALS: BP 128/71
[2020-04-20] MEDS: **NOTE PATIENT COMMENT** MISC XX SCH (21:00)
[2020-04-20] MEDS: QUEtiapine FUMARATE 200 MG TAB PO SCH (21:23)
[2020-04-21] MEDS: LORazepam 1 MG TAB PO PRN ×3 (01:38→17:25)
[2020-04-21 06:34] VITALS: BP 142/75
[2020-04-21] MEDS: MULTIVITAMINS/MINERALS THERAP 1 TAB PO SCH (08:58)
[2020-04-21] MEDS: THIAMINE 100 MG TAB PO SCH (08:58)
[2020-04-21] MEDS: FOLIC ACID 1 MG TAB PO SCH (08:58)
[2020-04-21] MEDS: QUEtiapine FUMARATE 50 MG TAB PO SCH (08:58)
[2020-04-21] MEDS: LIDOCAINE 5% (LIDODERM) PATCH TD SCH (09:00)
--- NOTE | 2020-04-21 12:15 | MHIPNPDOC ---
[facility] Progress Note Progress Note DATE OF SERVICE: 04/21/20 HISTORY: Day 30 of hospitalization, to review this Patient is a 64-year old Single Male who was directly admitted from [facility] to [facility] on 03/23/20 for psychotic symptoms and Delirium for what may have been a stimulant (Zuleima) intoxication. According to his patient had history of TIAS within the past year, and was found disorganized and confused after being found with altered mental status while driving. VITAL SIGNS: See below. NEW TEST RESULTS: CURRENT MEDICATIONS: See below. MENTAL STATUS EXAMINATION: Patient is a 64-year old , Domiciled male. He was admitted on medical due to his altered mental status which has [facility] with a sitter. He appears older than his stated age. Dressed in hospital scrubs. He has improved eye contact. He is mildly confused, and has more linear thinking. Speech: Spontaneous, observed with some aphasia and at times garbled Language skills are improving Thought processes including: confusion, cognition is improving, reports depression, anxiety, suicidal/homicidal ideation. Appears disorganized, scattered thinking Thought content: confusion Abstract reasoning, and computation: fair Description of associations: None Description of abnormal or psychotic thoughts: confabulation in his conversations Judgment: limited Insight: limited Orientation: alert and oriented x 2. Recent and remote memory: limited Attention span and concentration: limited Language: limited Fund of knowledge: declining Mood: mildly irritable. 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 Methamphetamine Use Disorder 5. Methamphetamine Induced Psychosis ASSESSMENT: Patient is observed to be mildly restless and confused in the [place]. He was paranoid with his on the phone. He is confused and has mild paranoia, stating "I dont know what Nita is doing, I give her money all the time, and what is she doing with it. " He is observed possible visual hallucinations, walked to the [facility] office and pointed to the air conditioning units and states, I left my tools out there. At times, his speech is garbled. MANAGEMENT PLAN: We will continue medications. Seroquel increased to 200 mg at HS for insomnia. Seroquel 50 mg in AM. Placement at [facility] facility. Patient placed on ALC status. Patient with a sitter due to elopement precaution and confusion Patient will be transferred to [facility] facility when bed is available. TIME SPENT: 20 minutes. Vital Signs Vital Signs Date Time Temp Pulse Resp B/P (MAP) Pulse Ox O2 Delivery O2 Flow Rate FiO2 04/21/20 06:34 98.3 79 14 142/75 (97) Room Air 04/19/20 06:56 98 Current Medications Current Medications Medications (Trade) Dose Ordered Sig/Risa Route PRN Reason Start Time Stop Time Status Last Admin Dose Admin Acetaminophen (Tylenol Tab) 650 mg Q6HP PRN PO HEADACHE or DISCOMFORT 03/23/20 11:30 04/19/20 16:08 Al Hydrox/Mg Hydrox/Simethicone (Mylanta) 30 ml Q4HP PRN PO HEARTBURN/INDIGESTION 03/23/20 11:30 Cetylpyridinium Chloride (Cepacol) 1 joseph Q4HP PRN PO COUGH 04/14/20 13:00 Cetylpyridinium Chloride (Cepacol) 1 joseph Q8HP PRN PO SORE THROAT 03/24/20 23:30 04/14/20 13:00 DC 04/01/20 10:47 Diphenhydramine HCl (Benadryl) 25 mg Q6H PO 03/25/20 18:00 03/25/20 16:39 DC Diphenhydramine HCl (Benadryl) 25 mg Q6HP PRN PO ITCHING 03/25/20 16:45 04/12/20 09:10 DC 03/29/20 01:08 Diphenhydramine HCl (Benadryl) 50 mg QHSP PRN PO INSOMNIA 03/29/20 11:15 04/12/20 09:10 DC 04/11/20 20:42 Folic Acid (Folic Acid) 1 mg DAILY PO 03/27/20 09:00 04/21/20 08:58 Folic Acid (Folic Acid) 1 mg DAILY PO 03/28/20 09:00 03/28/20 08:21 DC Haloperidol (Haldol) 5 mg BID PO 03/29/20 09:00 04/07/20 14:17 DC 04/07/20 09:38 Haloperidol (Haldol) 5 mg QHS PO 04/07/20 21:00 04/10/20 11:37 DC 04/09/20 21:41 Lidocaine (Lidoderm Patch) 1 patch DAILY TD 03/28/20 09:00 04/19/20 08:36 Lorazepam (Ativan) 0.5 mg TID PO 03/28/20 09:00 04/03/20 08:53 DC 04/02/20 20:52 Lorazepam (Ativan) 1 mg BID PO 04/18/20 21:00 04/19/20 12:59 DC 04/19/20 08:36 Lorazepam (Ativan) 1 mg Q8HP PRN PO ANXIETY 04/12/20 09:15 04/21/20 09:37 Lorazepam (Ativan) 1 mg TID PO 04/03/20 09:00 04/12/20 09:10 DC 04/12/20 08:07 Lorazepam (Ativan) 2 mg STAT STAT PO 03/23/20 15:24 03/23/20 15:25 DC 03/23/20 15:27 Magnesium Hydroxide (Milk Of Magnesia) 30 ml DAILYPRN PRN PO CONSTIPATION 03/23/20 11:30 Miscellaneous (Unresolved Clarification Entry) SEE LABEL COMMENTS DAILY XX 04/09/20 09:00 04/09/20 17:00 DC Multivitamins (Theragram-M) 1 tab DAILY PO 03/28/20 09:00 04/21/20 08:58 Non-Formulary Medication ( See Comment Field Below ) 1 DAILY@ XX 03/27/20 21:00 04/17/20 20:16 Non-Formulary Medication ( See Comment Field Below ) REMOVE LIDODERM PATCH DAILY@ XX 03/27/20 21:00 UNV Olanzapine (ZyPREXA ZYDIS) 5 mg BID PO 03/23/20 09:00 03/29/20 11:14 DC 03/29/20 08:52 Olanzapine (ZyPREXA ZYDIS) 5 mg Q4HP PRN PO ANXIETY/AGITATION 03/23/20 11:30 04/17/20 20:17 Phenol (Chloraseptic [place]) 1 spray Q12HP PRN MT SORE THROAT 03/25/20 04:00 04/14/20 12:57 DC 03/31/20 09:10 Quetiapine Fumarate (SEROquel) 50 mg QAM PO 04/20/20 09:00 04/21/20 08:58 Quetiapine Fumarate (SEROquel) 100 mg QHS PO 04/18/20 21:00 04/19/20 08:41 DC 04/18/20 21:01 Quetiapine Fumarate (SEROquel) 200 mg QHS PO 04/19/20 21:00 04/20/20 21:23 Thiamine HCl (Thiamine HCl) 100 mg DAILY PO 03/28/20 09:00 04/21/20 08:58 Trazodone HCl (Desyrel) 50 mg QHSP PRN PO INSOMNIA 03/23/20 11:30 03/29/20 11:14 DC 03/28/20 20:11 Trazodone HCl (Desyrel) 50 mg QHSP PRN PO INSOMNIA 04/12/20 11:45 04/17/20 12:20 DC 04/16/20 20:04 Trazodone HCl (Desyrel) 100 mg QHS PO 04/17/20 21:00 04/18/20 09:03 DC 04/17/20 20:17 Allergies Coded Allergies: No Known Allergies (Verified Allergy, Unknown, 03/19/20) WAN MEJIA NP Apr 21, 2020 12:15
[2020-04-21] MEDS: OLANZapine ORAL DISINTEGRATING TAB 5MG PO PRN ×2 (15:36→20:07)
[2020-04-21 18:39] VITALS: BP 144/83
[2020-04-21] MEDS: QUEtiapine FUMARATE 200 MG TAB PO SCH (20:06)
[2020-04-21] MEDS: **NOTE PATIENT COMMENT** MISC XX SCH (20:08)
[2020-04-22 06:38] VITALS: BP 165/86
[2020-04-22] MEDS: LIDOCAINE 5% (LIDODERM) PATCH TD SCH (09:51)
[2020-04-22] MEDS: MULTIVITAMINS/MINERALS THERAP 1 TAB PO SCH (09:51)
[2020-04-22] MEDS: FOLIC ACID 1 MG TAB PO SCH (09:51)
[2020-04-22] MEDS: QUEtiapine FUMARATE 50 MG TAB PO SCH (09:52)
[2020-04-22] MEDS: THIAMINE 100 MG TAB PO SCH (09:52)
[2020-04-22] MEDS: LORazepam 1 MG TAB PO PRN ×2 (10:16→19:45)
[2020-04-22] MEDS: OLANZapine ORAL DISINTEGRATING TAB 5MG PO PRN ×2 (16:15→20:44)
[2020-04-22 18:00] VITALS: BP 146/83
[2020-04-22] MEDS: QUEtiapine FUMARATE 200 MG TAB PO SCH (20:44)
[2020-04-22] MEDS: **NOTE PATIENT COMMENT** MISC XX SCH (20:59)
[2020-04-22] MEDS: ACETAMINOPHEN TAB 650MG DOSE (2X325MG) PO PRN (22:10)
[2020-04-22 22:20] VITALS: BP 133/66
[2020-04-23] MEDS: OLANZapine ORAL DISINTEGRATING TAB 5MG PO PRN (02:41)
[2020-04-23 08:14] LABS: HEMATOCRIT 41.7 % (42.0-52.0); HEMOGLOBIN 13.4 g/dl (13.5-17.5); MEAN CORPUSCULAR HEMOGLOBIN 31.8 pg (27.0-33.0); MEAN CORPUSCULAR HGB CONC 32.1 g/dl (32.0-36.5); MEAN CORPUSCULAR VOLUME 98.8 fl (80.0-96.0); PLATELET COUNT, AUTOMATED 279 10^3/uL (150-450); RED BLOOD COUNT 4.22 10^6/uL (4.30-6.10)
[2020-04-23 08:41] LABS: BLOOD UREA NITROGEN 22 MG/DL (7-18); CALCIUM LEVEL 8.8 MG/DL (8.8-10.2); CARBON DIOXIDE LEVEL 31 MEQ/L (21-32); CHLORIDE LEVEL 110 MEQ/L (98-107); CREATININE FOR GFR 0.76 MG/DL (0.70-1.30); GLOMERULAR FILTRATION RATE > 60.0 (>49); GLUCOSE, FASTING 97 MG/DL (70-100); SODIUM LEVEL 145 MEQ/L (136-145)
[2020-04-23] MEDS: LIDOCAINE 5% (LIDODERM) PATCH TD SCH (09:12)
[2020-04-23] MEDS: FOLIC ACID 1 MG TAB PO SCH (09:12)
[2020-04-23] MEDS: THIAMINE 100 MG TAB PO SCH (09:13)
[2020-04-23] MEDS: MULTIVITAMINS/MINERALS THERAP 1 TAB PO SCH (09:13)
[2020-04-23] MEDS: QUEtiapine FUMARATE 50 MG TAB PO SCH (09:13)
[2020-04-23] MEDS: ACETAMINOPHEN TAB 650MG DOSE (2X325MG) PO PRN (15:55)
[2020-04-23 18:07] VITALS: BP 140/77
[2020-04-23] MEDS: QUEtiapine FUMARATE 200 MG TAB PO SCH (20:02)
[2020-04-23] MEDS: LORazepam 1 MG TAB PO PRN (20:02)
[2020-04-23] MEDS: **NOTE PATIENT COMMENT** MISC XX SCH (21:00)
[2020-04-24 06:37] VITALS: BP 156/99
[2020-04-24] MEDS: THIAMINE 100 MG TAB PO SCH (08:41)
[2020-04-24] MEDS: FOLIC ACID 1 MG TAB PO SCH (08:41)
[2020-04-24] MEDS: MULTIVITAMINS/MINERALS THERAP 1 TAB PO SCH (08:41)
[2020-04-24] MEDS: LIDOCAINE 5% (LIDODERM) PATCH TD SCH (08:41)
[2020-04-24] MEDS: QUEtiapine FUMARATE 50 MG TAB PO SCH (08:41)
[2020-04-24 12:00] VITALS: BP 142/77
[2020-04-24] MEDS: OLANZapine ORAL DISINTEGRATING TAB 5MG PO PRN (13:04)
[2020-04-24] MEDS: **NOTE PATIENT COMMENT** MISC XX SCH (14:12)
[2020-04-24] MEDS: NICOTINE 21MG/24HR 1 EA TRANSDERMAL TD SCH (14:12)
--- NOTE | 2020-04-24 14:27 | MHIPNPDOC ---
[facility] Progress Note Progress Note DATE OF SERVICE: 04/24/20 HISTORY: Patient is a 64 year old , Domiciled, Male who has been in [facility] since 03/23/20 for psychotic symptoms and delirium for what may have been a stimulant (Zuleima) intoxication. He was admitted on medical for altered mental status and was subsequently admitted to [facility] for continued delirium symptoms. At that time, patient displayed both psychotic and delirium symptoms, he was restless and had severe psychomotor agitation and dyskinesia. VITAL SIGNS: See below. NEW TEST RESULTS: CURRENT MEDICATIONS: See below. MENTAL STATUS EXAMINATION: Patient is a 64-year old male, who is improving cognitively. He has moments of lucidity but throughout the day he is confused, needing much redirecting and his confusion makes him an elopement risk. He appears older than his stated age. In today's in interview he is disheveled and unkempt. Dressed in hospital scrubs. He has hypervigilant eye contact. He is mildly confused, and has more linear thinking. Speech: Spontaneous, at times garbled, his sentences trail off many times throughout the interview Language skills are improving Thought processes including: confusion, cognition is improving, reports depression, anxiety due to continued hospitalization he denies suicidal/homicidal ideation. Is disorganized, scattered thinking Thought content: mildly confused Abstract reasoning, and computation: limited Description of associations: None Description of abnormal or psychotic thoughts: confabulation in his conversations Judgment: limited Insight: limited Orientation: alert and oriented x 2. Recent and remote memory: limited Attention span and concentration: limited Language: limited Fund of knowledge: declining Mood: agitated. 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 Methamphetamine Use Disorder 5. Methamphetamine Induced Psychosis ASSESSMENT: Patient was very upset in the interview today. According to morning report, patient was very irritable over the weekend and staff had to explain that he could not be discharged as there is not order for it. He was redirected many times. Primary RN states that patient is improving cognitively and shows improvement with logical thinking, i.e. patient reported to her that he feels that he needs to get ready for the winter, need to cut 40 face cord of wood for heat. Patient was moderately irritable with his on the phone today, stating that he wants to be discharged. His speech was garbled at times and he trailed off in mid-sentence. He again has moments of confabulation in his communication with his . He remains moderately confused many times through out the day. I.E. he was observed with lunch tray, took his covered plate and set it under his blankets on the bed. He needed redirecting during lunch. At one time later in the day, patient came to the office and complained about still being in the hospital; I gently reinforced his need for continued hospitalization. He became very agitated, frustrated, and angry - PRN Zyprexa 5 mg was given. 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 Primary RN feels that patient should be trialed off 1:1 observations for a period of time, due to his increased agitation over sitters. Patient appears to be more comfortable walking independently in the hallways. MANAGEMENT PLAN: Patient is on ALC status. Patient will be discharged to long term facility. Patient was living with his girlfriend prior to this admission, she is no longer in the relationship. Patient is being supported by his estranged of 3-4 years who does not feel that she can manage that patient at home, as she is still working. Patient would not be safe to be home alone at this time, as evidenced by his need for a sitter while on [facility]. TIME SPENT: 30 minutes. Vital Signs Vital Signs Date Time Temp Pulse Resp B/P (MAP) Pulse Ox O2 Delivery O2 Flow Rate FiO2 04/24/20 06:37 98.6 91 18 156/99 (118) 97 Room Air Current Medications Current Medications Medications (Trade) Dose Ordered Sig/Risa Route PRN Reason Start Time Stop Time Status Last Admin Dose Admin Acetaminophen (Tylenol Tab) 650 mg Q6HP PRN PO HEADACHE or DISCOMFORT 03/23/20 11:30 04/23/20 15:55 Al Hydrox/Mg Hydrox/Simethicone (Mylanta) 30 ml Q4HP PRN PO HEARTBURN/INDIGESTION 03/23/20 11:30 Cetylpyridinium Chloride (Cepacol) 1 joseph Q4HP PRN PO COUGH 04/14/20 13:00 Cetylpyridinium Chloride (Cepacol) 1 joseph Q8HP PRN PO SORE THROAT 03/24/20 23:30 04/14/20 13:00 DC 04/01/20 10:47 Diphenhydramine HCl (Benadryl) 25 mg Q6H PO 03/25/20 18:00 03/25/20 16:39 DC Diphenhydramine HCl (Benadryl) 25 mg Q6HP PRN PO ITCHING 03/25/20 16:45 04/12/20 09:10 DC 03/29/20 01:08 Diphenhydramine HCl (Benadryl) 50 mg QHSP PRN PO INSOMNIA 03/29/20 11:15 04/12/20 09:10 DC 04/11/20 20:42 Folic Acid (Folic Acid) 1 mg DAILY PO 03/27/20 09:00 04/24/20 08:41 Folic Acid (Folic Acid) 1 mg DAILY PO 03/28/20 09:00 03/28/20 08:21 DC Haloperidol (Haldol) 5 mg BID PO 03/29/20 09:00 04/07/20 14:17 DC 04/07/20 09:38 Haloperidol (Haldol) 5 mg QHS PO 04/07/20 21:00 04/10/20 11:37 DC 04/09/20 21:41 Lidocaine (Lidoderm Patch) 1 patch DAILY TD 03/28/20 09:00 04/24/20 08:41 Lorazepam (Ativan) 0.5 mg TID PO 03/28/20 09:00 04/03/20 08:53 DC 04/02/20 20:52 Lorazepam (Ativan) 1 mg BID PO 04/18/20 21:00 04/19/20 12:59 DC 04/19/20 08:36 Lorazepam (Ativan) 1 mg Q8HP PRN PO ANXIETY 04/12/20 09:15 04/23/20 20:02 Lorazepam (Ativan) 1 mg TID PO 04/03/20 09:00 04/12/20 09:10 DC 04/12/20 08:07 Lorazepam (Ativan) 2 mg STAT STAT PO 03/23/20 15:24 03/23/20 15:25 DC 03/23/20 15:27 Magnesium Hydroxide (Milk Of Magnesia) 30 ml DAILYPRN PRN PO CONSTIPATION 03/23/20 11:30 Miscellaneous (Unresolved Clarification Entry) SEE LABEL COMMENTS DAILY XX 04/09/20 09:00 04/09/20 17:00 DC Miscellaneous (Unresolved Clarification Entry) SEE LABEL COMMENTS DAILY XX 04/23/20 09:00 04/23/20 13:05 DC Multivitamins (Theragram-M) 1 tab DAILY PO 03/28/20 09:00 04/24/20 08:41 Nicotine (Nicoderm Cq 21mg) 1 patch DAILY TD 04/24/20 14:00 04/24/20 14:12 Non-Formulary Medication ( See Comment Field Below ) 1 DAILY@ XX 03/27/20 21:00 04/24/20 14:12 Non-Formulary Medication ( See Comment Field Below ) REMOVE LIDODERM PATCH DAILY@ XX 03/27/20 21:00 UNV Olanzapine (ZyPREXA ZYDIS) 5 mg BID PO 03/23/20 09:00 03/29/20 11:14 DC 03/29/20 08:52 Olanzapine (ZyPREXA ZYDIS) 5 mg Q4HP PRN PO ANXIETY/AGITATION 03/23/20 11:30 04/24/20 13:04 Phenol (Chloraseptic [place]) 1 spray Q12HP PRN MT SORE THROAT 03/25/20 04:00 04/14/20 12:57 DC 03/31/20 09:10 Quetiapine Fumarate (SEROquel) 50 mg QAM PO 04/20/20 09:00 04/24/20 08:41 Quetiapine Fumarate (SEROquel) 100 mg QHS PO 04/18/20 21:00 04/19/20 08:41 DC 04/18/20 21:01 Quetiapine Fumarate (SEROquel) 200 mg QHS PO 04/19/20 21:00 04/23/20 20:02 Thiamine HCl (Thiamine HCl) 100 mg DAILY PO 03/28/20 09:00 04/24/20 08:41 Trazodone HCl (Desyrel) 50 mg QHSP PRN PO INSOMNIA 03/23/20 11:30 03/29/20 11:14 DC 03/28/20 20:11 Trazodone HCl (Desyrel) 50 mg QHSP PRN PO INSOMNIA 04/12/20 11:45 04/17/20 12:20 DC 04/16/20 20:04 Trazodone HCl (Desyrel) 100 mg QHS PO 04/17/20 21:00 04/18/20 09:03 DC 04/17/20 20:17 Allergies Coded Allergies: No Known Allergies (Verified Allergy, Unknown, 03/19/20) WAN MEJIA NP Apr 24, 2020 14:27
[2020-04-24 16:03] VITALS: BP 121/71
[2020-04-24] MEDS: QUEtiapine FUMARATE 200 MG TAB PO SCH (20:33)
[2020-04-24] MEDS: LORazepam 1 MG TAB PO PRN (20:33)
[2020-04-25] MEDS: OLANZapine ORAL DISINTEGRATING TAB 5MG PO PRN (00:09)
[2020-04-25 06:35] VITALS: BP 142/83
[2020-04-25] MEDS: QUEtiapine FUMARATE 50 MG TAB PO SCH (08:30)
[2020-04-25] MEDS: NICOTINE 21MG/24HR 1 EA TRANSDERMAL TD SCH (08:30)
[2020-04-25] MEDS: LIDOCAINE 5% (LIDODERM) PATCH TD SCH (08:30)
[2020-04-25] MEDS: MULTIVITAMINS/MINERALS THERAP 1 TAB PO SCH (08:30)
--- NOTE | 2020-04-25 13:28 | MHIPNPDOC ---
[facility] Progress Note Progress Note DATE OF SERVICE: 04/25/20 HISTORY: Patient is a 64 year old , Domiciled, Male who [facility] for psychotic symptoms and delirium for what may have been a stimulant (Zuleima) intoxication. He was admitted on medical for altered mental status and was subsequently admitted to [facility] for continued delirium symptoms. At that time, patient displayed both psychotic and delirium symptoms, he was restless and had severe psychomotor agitation and dyskinesia. VITAL SIGNS: See below. NEW TEST RESULTS: CURRENT MEDICATIONS: See below. MENTAL STATUS EXAMINATION: Patient is a 64-year old male, who is improving cognitively. In today's in interview he is disheveled and unkempt. Dressed in hospital scrubs. He is less confused today, needing less redirecting He appears older than his stated age. He makes good eye contact. Speech: Spontaneous, normal rate tone and volume but his sentences trail off ma ny times when he becomes frustrated Language skills are improving Thought processes including: confusion, cognition is improving, reports anxiety and frustration due to continued hospitalization, he denies suicidal/homicidal ideation. Thought content: mildly confused Abstract reasoning, and computation: limited Description of associations: None Description of abnormal or psychotic thoughts: in today's interview he is paranoia, believing that this family is keeping him in the hospital to take his money Judgment: limited Insight: limited Orientation: alert and oriented x 2. Recent and remote memory: limited Attention span and concentration: limited Language: limited Fund of knowledge: average Mood: agitated. Affect: Blunted/Flat 1. 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 Methamphetamine Use Disorder 5. Methamphetamine Induced Psychosis ASSESSMENT: Patient was very upset in the interview today. He wants to be discharged. Patient appears to be more comfortable walking independently in the hallways. He is now on distance observations. Patient has some paranoia, believes that his family is keeping him in the hospital and states "I can't afford to live here" Performed a mini-mental status exam: 1) Patient was answered 2017 to , answered to , needed a hint from this provider to name the month - told patient that it is the month that starts with an "S", he said March. He stated it was Friday when I had to give him a hint as to day of the week (second day of the week) 2) Patient states that he is in [facility], in [facility] in [place]. 3) He was able to name three objects that were pointed out to him. (Phone, Pen. Folder) 4) He was not able to spell world backwards. He spelled "L - D - O - R - W" 5) He was not able to recall the three objects that were pointed out to him. 6) Patient were able to identify tea bag and water bottle 7) When asked to fold a paper in half, patient folded the paper diagonally and then proceeded to rip the paper and stated "I don't know how to make an airplane" 8) Patient was able to read the directions to Close his eyes 9) Patient was able to make up a sentence and write it, "I understand I am in here for reason to help improve myself" 10) Patient was able to draw a hexagon with all ten angles and the intersecting. 11) Patient was not able to give the meanings behind these two proverbs "Killing two birds with one stone" Patient states "I would never kill anything, I have never killed anyone" when asked why one shouldn't throw rocks at glass houses, patient states "The glass will break, that's why you don't throw things" Patient shows inability to thinking abstractly. Patient scores moderate on this exam, and while it shows impairment, it actually is an improvement for this patient. MANAGEMENT PLAN: Patient is on ALC status, it does appear that he is improving and it may be that the patient could possibly improve enough to return home. Due to his continued confusion many times throughout the day, discharging to home without supervision would be unsafe. TIME SPENT: 20 minutes. Vital Signs Vital Signs Date Time Temp Pulse Resp B/P (MAP) Pulse Ox O2 Delivery O2 Flow Rate FiO2 04/25/20 06:35 97.0 106 16 142/83 (102) Room Air 04/24/20 06:37 97 Current Medications Current Medications Medications (Trade) Dose Ordered Sig/Risa Route PRN Reason Start Time Stop Time Status Last Admin Dose Admin Acetaminophen (Tylenol Tab) 650 mg Q6HP PRN PO HEADACHE or DISCOMFORT 03/23/20 11:30 04/23/20 15:55 Al Hydrox/Mg Hydrox/Simethicone (Mylanta) 30 ml Q4HP PRN PO HEARTBURN/INDIGESTION 03/23/20 11:30 Cetylpyridinium Chloride (Cepacol) 1 joseph Q4HP PRN PO COUGH 04/14/20 13:00 Cetylpyridinium Chloride (Cepacol) 1 joseph Q8HP PRN PO SORE THROAT 03/24/20 23:30 04/14/20 13:00 DC 04/01/20 10:47 Diphenhydramine HCl (Benadryl) 25 mg Q6H PO 03/25/20 18:00 03/25/20 16:39 DC Diphenhydramine HCl (Benadryl) 25 mg Q6HP PRN PO ITCHING 03/25/20 16:45 04/12/20 09:10 DC 03/29/20 01:08 Diphenhydramine HCl (Benadryl) 50 mg QHSP PRN PO INSOMNIA 03/29/20 11:15 04/12/20 09:10 DC 04/11/20 20:42 Folic Acid (Folic Acid) 1 mg DAILY PO 03/27/20 09:00 04/24/20 14:18 DC 04/24/20 08:41 Folic Acid (Folic Acid) 1 mg DAILY PO 03/28/20 09:00 03/28/20 08:21 DC Haloperidol (Haldol) 5 mg BID PO 03/29/20 09:00 04/07/20 14:17 DC 04/07/20 09:38 Haloperidol (Haldol) 5 mg QHS PO 04/07/20 21:00 04/10/20 11:37 DC 04/09/20 21:41 Lidocaine (Lidoderm Patch) 1 patch DAILY TD 03/28/20 09:00 04/25/20 08:30 Lorazepam (Ativan) 0.5 mg TID PO 03/28/20 09:00 04/03/20 08:53 DC 04/02/20 20:52 Lorazepam (Ativan) 1 mg BID PO 04/18/20 21:00 04/19/20 12:59 DC 04/19/20 08:36 Lorazepam (Ativan) 1 mg Q8HP PRN PO ANXIETY 04/12/20 09:15 04/24/20 20:33 Lorazepam (Ativan) 1 mg TID PO 04/03/20 09:00 04/12/20 09:10 DC 04/12/20 08:07 Lorazepam (Ativan) 2 mg STAT STAT PO 03/23/20 15:24 03/23/20 15:25 DC 03/23/20 15:27 Magnesium Hydroxide (Milk Of Magnesia) 30 ml DAILYPRN PRN PO CONSTIPATION 03/23/20 11:30 Miscellaneous (Unresolved Clarification Entry) SEE LABEL COMMENTS DAILY XX 04/09/20 09:00 04/09/20 17:00 DC Miscellaneous (Unresolved Clarification Entry) SEE LABEL COMMENTS DAILY XX 04/23/20 09:00 04/23/20 13:05 DC Multivitamins (Theragram-M) 1 tab DAILY PO 03/28/20 09:00 04/25/20 08:30 Nicotine (Nicoderm Cq 21mg) 1 patch DAILY TD 04/24/20 14:00 04/25/20 08:30 Non-Formulary Medication ( See Comment Field Below ) 1 DAILY@ XX 03/27/20 21:00 04/24/20 14:12 Non-Formulary Medication ( See Comment Field Below ) REMOVE LIDODERM PATCH DAILY@21 XX 03/27/20 21:00 UNV Olanzapine (ZyPREXA ZYDIS) 5 mg BID PO 03/23/20 09:00 03/29/20 11:14 DC 03/29/20 08:52 Olanzapine (ZyPREXA ZYDIS) 5 mg Q4HP PRN PO ANXIETY/AGITATION 03/23/20 11:30 04/25/20 00:09 Phenol (Chloraseptic [place]) 1 spray Q12HP PRN MT SORE THROAT 03/25/20 04:00 04/14/20 12:57 DC 03/31/20 09:10 Quetiapine Fumarate (SEROquel) 50 mg QAM PO 04/20/20 09:00 04/25/20 08:30 Quetiapine Fumarate (SEROquel) 100 mg QHS PO 04/18/20 21:00 04/19/20 08:41 DC 04/18/20 21:01 Quetiapine Fumarate (SEROquel) 200 mg QHS PO 04/19/20 21:00 04/24/20 20:33 Thiamine HCl (Thiamine HCl) 100 mg DAILY PO 03/28/20 09:00 04/25/20 08:16 DC 04/24/20 08:41 Trazodone HCl (Desyrel) 50 mg QHSP PRN PO INSOMNIA 03/23/20 11:30 03/29/20 11:14 DC 03/28/20 20:11 Trazodone HCl (Desyrel) 50 mg QHSP PRN PO INSOMNIA 04/12/20 11:45 04/17/20 12:20 DC 04/16/20 20:04 Trazodone HCl (Desyrel) 100 mg QHS PO 04/17/20 21:00 04/18/20 09:03 DC 04/17/20 20:17 Allergies Coded Allergies: No Known Allergies (Verified Allergy, Unknown, 03/19/20) WAN MEJIA NP Apr 25, 2020 13:28
[2020-04-25 16:13] VITALS: BP 127/77
[2020-04-25] MEDS: rOPINIRole 0.25 MG TAB(REQUIP) PO SCH (20:14)
[2020-04-25] MEDS: QUEtiapine FUMARATE 200 MG TAB PO SCH (20:15)
[2020-04-25] MEDS: **NOTE PATIENT COMMENT** MISC XX SCH (20:16)
[2020-04-25] MEDS: ACETAMINOPHEN TAB 650MG DOSE (2X325MG) PO PRN (21:52)
[2020-04-26 06:32] VITALS: BP 139/92
[2020-04-26] MEDS: LIDOCAINE 5% (LIDODERM) PATCH TD SCH (08:22)
[2020-04-26] MEDS: MULTIVITAMINS/MINERALS THERAP 1 TAB PO SCH (08:22)
[2020-04-26] MEDS: QUEtiapine FUMARATE 50 MG TAB PO SCH (08:22)
[2020-04-26] MEDS: NICOTINE 21MG/24HR 1 EA TRANSDERMAL TD SCH (08:22)
--- NOTE | 2020-04-26 14:26 | MHIPNPDOC ---
[facility] Progress Note Progress Note DATE OF SERVICE: 04/26/20 HISTORY: Patient is a 64 year old , Domiciled, Male who [facility] for psychotic symptoms and delirium for what may have been a stimulant (Zuleima) intoxication. He was admitted on medical for altered mental status and was subsequently [facility] continued delirium symptoms. At that time, patient displayed both psychotic and delirium symptoms, he was restless and had severe psychomotor agitation and dyskinesia. VITAL SIGNS: See below. NEW TEST RESULTS: CURRENT MEDICATIONS: See below. MENTAL STATUS EXAMINATION: Patient is a 64-year old male, who is [facility] for altered mental status, delirium symptoms and confusion. He appears older than his stated age. He is disheveled and unkempt. Dressed in hospital scrubs. He makes eye contact. Patient is observed with improved cognition and has more linear thinking. Speech: Spontaneous, conversant, normal rate, tone and volume Language skills are improving Thought processes including: reports mild depression, anxiety due to continued hospitalization he denies suicidal/homicidal ideation. More linear thinking, goal oriented Thought content: mild depression and anxiety Abstract reasoning, and computation: improving Description of associations: None Description of abnormal or psychotic thoughts: none observed Judgment: fair Insight: fair Orientation: alert and oriented to person, place, and situation. Recent and remote memory: improving Attention span and concentration: improving Language: improving Fund of knowledge: improving Mood: brighter mood Affect: brighter affect, smiles on approach DIAGNOSES: 1. 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 Methamphetamine Use Disorder 5. Methamphetamine Induced Psychosis ASSESSMENT: Patient is placed on intermitted observations (long-distance) and is improving considerably. According to shift report, patient has confusion at night, came out of his room during the night disrobed and asked to be taken to [place]. In todays inter view patients speech was more conversant, his memory is improving. 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 He was able to speak to his and he did ask her what she did with the Alligators. He was calm and cooperative in the interview. No restlessness observed and he was able to have a complete conversation without irritability, frustration, or episodes of annoyance with her. He has considerably improved and his MARK is suspended at this time. MANAGEMENT PLAN: Patient is on ALC status. At this time patient is improving considerably and we will ask his family to come see him to assess his cognitive level and improvement. TIME SPENT: 30 minutes. Vital Signs Vital Signs Date Time Temp Pulse Resp B/P (MAP) Pulse Ox O2 Delivery O2 Flow Rate FiO2 04/26/20 06:32 96.6 91 16 139/92 (108) 04/25/20 06:35 Room Air 04/24/20 06:37 97 Current Medications Current Medications Medications (Trade) Dose Ordered Sig/Risa Route PRN Reason Start Time Stop Time Status Last Admin Dose Admin Acetaminophen (Tylenol Tab) 650 mg Q6HP PRN PO HEADACHE or DISCOMFORT 03/23/20 11:30 04/25/20 21:52 Al Hydrox/Mg Hydrox/Simethicone (Mylanta) 30 ml Q4HP PRN PO HEARTBURN/INDIGESTION 03/23/20 11:30 Cetylpyridinium Chloride (Cepacol) 1 joseph Q4HP PRN PO COUGH 04/14/20 13:00 Cetylpyridinium Chloride (Cepacol) 1 joseph Q8HP PRN PO SORE THROAT 03/24/20 23:30 04/14/20 13:00 DC 04/01/20 10:47 Diphenhydramine HCl (Benadryl) 25 mg Q6H PO 03/25/20 18:00 03/25/20 16:39 DC Diphenhydramine HCl (Benadryl) 25 mg Q6HP PRN PO ITCHING 03/25/20 16:45 04/12/20 09:10 DC 03/29/20 01:08 Diphenhydramine HCl (Benadryl) 50 mg QHSP PRN PO INSOMNIA 03/29/20 11:15 04/12/20 09:10 DC 04/11/20 20:42 Folic Acid (Folic Acid) 1 mg DAILY PO 03/27/20 09:00 04/24/20 14:18 DC 04/24/20 08:41 Folic Acid (Folic Acid) 1 mg DAILY PO 03/28/20 09:00 03/28/20 08:21 DC Haloperidol (Haldol) 5 mg BID PO 03/29/20 09:00 04/07/20 14:17 DC 04/07/20 09:38 Haloperidol (Haldol) 5 mg QHS PO 04/07/20 21:00 04/10/20 11:37 DC 04/09/20 21:41 Lidocaine (Lidoderm Patch) 1 patch DAILY TD 03/28/20 09:00 04/26/20 08:22 Lorazepam (Ativan) 0.5 mg TID PO 03/28/20 09:00 04/03/20 08:53 DC 04/02/20 20:52 Lorazepam (Ativan) 1 mg BID PO 04/18/20 21:00 04/19/20 12:59 DC 04/19/20 08:36 Lorazepam (Ativan) 1 mg Q8HP PRN PO ANXIETY 04/12/20 09:15 04/24/20 20:33 Lorazepam (Ativan) 1 mg TID PO 04/03/20 09:00 04/12/20 09:10 DC 04/12/20 08:07 Lorazepam (Ativan) 2 mg STAT STAT PO 03/23/20 15:24 03/23/20 15:25 DC 03/23/20 15:27 Magnesium Hydroxide (Milk Of Magnesia) 30 ml DAILYPRN PRN PO CONSTIPATION 03/23/20 11:30 Miscellaneous (Unresolved Clarification Entry) SEE LABEL COMMENTS DAILY XX 04/09/20 09:00 04/09/20 17:00 DC Miscellaneous (Unresolved Clarification Entry) SEE LABEL COMMENTS DAILY XX 04/23/20 09:00 04/23/20 13:05 DC Multivitamins (Theragram-M) 1 tab DAILY PO 03/28/20 09:00 04/26/20 08:22 Nicotine (Nicoderm Cq 21mg) 1 patch DAILY TD 04/24/20 14:00 04/26/20 08:22 Non-Formulary Medication ( See Comment Field Below ) 1 DAILY@ XX 03/27/20 21:00 04/25/20 20:16 Non-Formulary Medication ( See Comment Field Below ) REMOVE LIDODERM PATCH DAILY@ XX 03/27/20 21:00 UNV Olanzapine (ZyPREXA ZYDIS) 5 mg BID PO 03/23/20 09:00 03/29/20 11:14 DC 03/29/20 08:52 Olanzapine (ZyPREXA ZYDIS) 5 mg Q4HP PRN PO ANXIETY/AGITATION 03/23/20 11:30 04/25/20 00:09 Phenol (Chloraseptic [place]) 1 spray Q12HP PRN MT SORE THROAT 03/25/20 04:00 04/14/20 12:57 DC 03/31/20 09:10 Quetiapine Fumarate (SEROquel) 50 mg QAM PO 04/20/20 09:00 04/26/20 08:22 Quetiapine Fumarate (SEROquel) 100 mg QHS PO 04/18/20 21:00 04/19/20 08:41 DC 04/18/20 21:01 Quetiapine Fumarate (SEROquel) 200 mg QHS PO 04/19/20 21:00 04/25/20 20:15 Ropinirole HCl (Requip) 0.125 mg QHS PO 04/25/20 21:00 04/25/20 20:14 Thiamine HCl (Thiamine HCl) 100 mg DAILY PO 03/28/20 09:00 04/25/20 08:16 DC 04/24/20 08:41 Trazodone HCl (Desyrel) 50 mg QHSP PRN PO INSOMNIA 03/23/20 11:30 03/29/20 11:14 DC 03/28/20 20:11 Trazodone HCl (Desyrel) 50 mg QHSP PRN PO INSOMNIA 04/12/20 11:45 04/17/20 12:20 DC 04/16/20 20:04 Trazodone HCl (Desyrel) 100 mg QHS PO 04/17/20 21:00 04/18/20 09:03 DC 04/17/20 20:17 Allergies Coded Allergies: No Known Allergies (Verified Allergy, Unknown, 03/19/20) WAN MEJIA PROPERTY TECHNICIAN Apr 26, 2020 14:26
[2020-04-26 16:04] VITALS: BP 136/86
[2020-04-26] MEDS: rOPINIRole 0.25 MG TAB(REQUIP) PO SCH (20:14)
[2020-04-26] MEDS: QUEtiapine FUMARATE 200 MG TAB PO SCH (20:15)
[2020-04-26] MEDS: **NOTE PATIENT COMMENT** MISC XX SCH (20:15)
[2020-04-27 06:24] VITALS: BP 142/88
[2020-04-27] MEDS: QUEtiapine FUMARATE 50 MG TAB PO SCH (08:24)
[2020-04-27] MEDS: MULTIVITAMINS/MINERALS THERAP 1 TAB PO SCH (08:24)
[2020-04-27] MEDS: NICOTINE 21MG/24HR 1 EA TRANSDERMAL TD SCH (08:24)
[2020-04-27] MEDS: LIDOCAINE 5% (LIDODERM) PATCH TD SCH (08:25)
--- NOTE | 2020-04-27 10:16 | MHIPN ---
DATE: 04/22/2020 I could not evaluate the patient, as the patient is psychotic and tends to be very confused, and he was somewhat agitated and had finally fallen asleep, and I felt it was contraindicated to try to wake him up. MTDD
--- NOTE | 2020-04-27 16:24 | MHIPNPDOC ---
[facility] Progress Note Progress Note DATE OF SERVICE: 04/27/20 HISTORY: Patient is a 64 year old , Domiciled, Male who has been in [facility] since 03/23/20 for psychotic symptoms and delirium for what may have been a stimulant (Zuleima) intoxication. He was admitted on medical for altered mental status and was subsequently admitted to [facility] for continued delirium symptoms. At that time, patient displayed both psychotic and delirium symptoms, he was restless and had severe psychomotor agitation and dyskinesia. VITAL SIGNS: See below. NEW TEST RESULTS: CURRENT MEDICATIONS: See below. MENTAL STATUS EXAMINATION: Patient is a 64-year old male, who is admitted to [facility] for altered mental status, delirium symptoms and confusion. He appears older than his stated age. He hygiene and grooming is fair today. Dressed in hospital scrubs. He makes eye contact. Patient is observed with improved cognition and has more linear thinking. Speech: Spontaneous, conversant, normal rate, tone and volume Language skills are improving Thought processes including: reports mild depression, anxiety due to continued hospitalization he denies suicidal/homicidal ideation. More linear thinking, goal oriented Thought content: mild depression and anxiety Abstract reasoning, and computation: improving Description of associations: None Description of abnormal or psychotic thoughts: none observed Judgment: fair Insight: fair Orientation: alert and oriented to person, place, and situation. Recent and remote memory: improving Attention span and concentration: improving Language: improving Fund of knowledge: improving Mood: brighter mood Affect: brighter affect, smiles on approach DIAGNOSES: 1. 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 Methamphetamine Use Disorder 5. Methamphetamine Induced Psychosis ASSESSMENT: Patient is placed on Q 15 minute observations and is improving considerably. Patient is aware that he was positive for Methamphetamines and He is very anxious to be discharged. In today's interview he was calm and cooperative, spoke to his and was not irritable. I reinforced with the patient that he still has episodes of confusion and he states "Ok, whatever." I also reinforced that we want to make sure that he is able to be independent and that this occurrence does not happen again to which he states, "It won't - I am not ever doing any drugs ever again, I learned my lesson. " According to shift report, patient has No restlessness observed and he was able to have a complete conversation without irritability, frustration, or episodes of annoyance with her. He has considerably improved and his MARK is suspended at this time. MANAGEMENT PLAN: Patient is on ALC status. At this time patient is improving considerably and we will ask his family to come see him to assess his cognitive level and improvement. Ordered Requip for restless leg syndrome complaints. TIME SPENT: 30 minutes. Vital Signs Vital Signs Date Time Temp Pulse Resp B/P (MAP) Pulse Ox O2 Delivery O2 Flow Rate FiO2 04/27/20 06:24 97.2 89 18 142/88 (106) 04/25/20 06:35 Room Air 04/24/20 06:37 97 Current Medications Current Medications Medications (Trade) Dose Ordered Sig/Risa Route PRN Reason Start Time Stop Time Status Last Admin Dose Admin Acetaminophen (Tylenol Tab) 650 mg Q6HP PRN PO HEADACHE or DISCOMFORT 03/23/20 11:30 04/25/20 21:52 Al Hydrox/Mg Hydrox/Simethicone (Mylanta) 30 ml Q4HP PRN PO HEARTBURN/INDIGESTION 03/23/20 11:30 Cetylpyridinium Chloride (Cepacol) 1 joseph Q4HP PRN PO COUGH 04/14/20 13:00 Cetylpyridinium Chloride (Cepacol) 1 joseph Q8HP PRN PO SORE THROAT 03/24/20 23:30 04/14/20 13:00 DC 04/01/20 10:47 Diphenhydramine HCl (Benadryl) 25 mg Q6H PO 03/25/20 18:00 03/25/20 16:39 DC Diphenhydramine HCl (Benadryl) 25 mg Q6HP PRN PO ITCHING 03/25/20 16:45 04/12/20 09:10 DC 03/29/20 01:08 Diphenhydramine HCl (Benadryl) 50 mg QHSP PRN PO INSOMNIA 03/29/20 11:15 04/12/20 09:10 DC 04/11/20 20:42 Folic Acid (Folic Acid) 1 mg DAILY PO 03/27/20 09:00 04/24/20 14:18 DC 04/24/20 08:41 Folic Acid (Folic Acid) 1 mg DAILY PO 03/28/20 09:00 03/28/20 08:21 DC Haloperidol (Haldol) 5 mg BID PO 03/29/20 09:00 04/07/20 14:17 DC 04/07/20 09:38 Haloperidol (Haldol) 5 mg QHS PO 04/07/20 21:00 04/10/20 11:37 DC 04/09/20 21:41 Lidocaine (Lidoderm Patch) 1 patch DAILY TD 03/28/20 09:00 04/27/20 08:25 Lorazepam (Ativan) 0.5 mg TID PO 03/28/20 09:00 04/03/20 08:53 DC 04/02/20 20:52 Lorazepam (Ativan) 1 mg BID PO 04/18/20 21:00 04/19/20 12:59 DC 04/19/20 08:36 Lorazepam (Ativan) 1 mg Q8HP PRN PO ANXIETY 04/12/20 09:15 04/24/20 20:33 Lorazepam (Ativan) 1 mg TID PO 04/03/20 09:00 04/12/20 09:10 DC 04/12/20 08:07 Lorazepam (Ativan) 2 mg STAT STAT PO 03/23/20 15:24 03/23/20 15:25 DC 03/23/20 15:27 Magnesium Hydroxide (Milk Of Magnesia) 30 ml DAILYPRN PRN PO CONSTIPATION 03/23/20 11:30 Miscellaneous (Unresolved Clarification Entry) SEE LABEL COMMENTS DAILY XX 04/09/20 09:00 04/09/20 17:00 DC Miscellaneous (Unresolved Clarification Entry) SEE LABEL COMMENTS DAILY XX 04/23/20 09:00 04/23/20 13:05 DC Multivitamins (Theragram-M) 1 tab DAILY PO 03/28/20 09:00 04/27/20 08:24 Nicotine (Nicoderm Cq 21mg) 1 patch DAILY TD 04/24/20 14:00 04/27/20 08:24 Non-Formulary Medication ( See Comment Field Below ) 1 DAILY@ XX 03/27/20 21:00 04/26/20 20:15 Non-Formulary Medication ( See Comment Field Below ) REMOVE LIDODERM PATCH DAILY@ XX 03/27/20 21:00 UNV Olanzapine (ZyPREXA ZYDIS) 5 mg BID PO 03/23/20 09:00 9/2/20 11:14 DC 03/29/20 08:52 Olanzapine (ZyPREXA ZYDIS) 5 mg Q4HP PRN PO ANXIETY/AGITATION 03/23/20 11:30 04/25/20 00:09 Phenol (Chloraseptic [place]) 1 spray Q12HP PRN MT SORE THROAT 03/25/20 04:00 04/14/20 12:57 DC 03/31/20 09:10 Quetiapine Fumarate (SEROquel) 50 mg QAM PO 04/20/20 09:00 04/27/20 08:24 Quetiapine Fumarate (SEROquel) 100 mg QHS PO 04/18/20 21:00 04/19/20 08:41 DC 04/18/20 21:01 Quetiapine Fumarate (SEROquel) 200 mg QHS PO 04/19/20 21:00 04/26/20 20:15 Ropinirole HCl (Requip) 0.125 mg QHS PO 04/25/20 21:00 04/26/20 20:14 Thiamine HCl (Thiamine HCl) 100 mg DAILY PO 03/28/20 09:00 04/25/20 08:16 DC 04/24/20 08:41 Trazodone HCl (Desyrel) 50 mg QHSP PRN PO INSOMNIA 03/23/20 11:30 03/29/20 11:14 DC 03/28/20 20:11 Trazodone HCl (Desyrel) 50 mg QHSP PRN PO INSOMNIA 04/12/20 11:45 04/17/20 12:20 DC 04/16/20 20:04 Trazodone HCl (Desyrel) 100 mg QHS PO 04/17/20 21:00 04/18/20 09:03 DC 04/17/20 20:17 Allergies Coded Allergies: No Known Allergies (Verified Allergy, Unknown, 03/19/20) WAN MEJIA NP Apr 27, 2020 16:24
[2020-04-27 18:55] VITALS: BP 146/85
[2020-04-27] MEDS: rOPINIRole 0.25 MG TAB(REQUIP) PO SCH (20:48)
[2020-04-27] MEDS: QUEtiapine FUMARATE 200 MG TAB PO SCH (20:48)
[2020-04-27] MEDS: **NOTE PATIENT COMMENT** MISC XX SCH (20:49)
[2020-04-28] MEDS: OLANZapine ORAL DISINTEGRATING TAB 5MG PO PRN (02:22)
[2020-04-28 06:56] VITALS: BP 135/85
[2020-04-28] MEDS: QUEtiapine FUMARATE 50 MG TAB PO SCH (11:09)
[2020-04-28] MEDS: MULTIVITAMINS/MINERALS THERAP 1 TAB PO SCH (11:09)
[2020-04-28] MEDS: LIDOCAINE 5% (LIDODERM) PATCH TD SCH (11:10)
[2020-04-28] MEDS: NICOTINE 21MG/24HR 1 EA TRANSDERMAL TD SCH (11:10)
--- NOTE | 2020-04-28 12:35 | MHIPNPDOC ---
[facility] Progress Note Progress Note DATE OF SERVICE: 04/28/20 HISTORY: Patient is a 64 year old , Domiciled, Male who has been in [facility] since 03/23/20 for psychotic symptoms and delirium for what may have been a stimulant (Zuleima) intoxication. He was admitted on medical for altered mental status and was subsequently admitted to [facility] for continued delirium symptoms. At that time, patient displayed both psychotic and delirium symptoms, he was restless and had severe psychomotor agitation and dyskinesia. VITAL SIGNS: See below. NEW TEST RESULTS: CURRENT MEDICATIONS: See below. MENTAL STATUS EXAMINATION: Patient is a 64-year old male, who is admitted to [facility] for altered mental status, delirium symptoms and confusion. He appears older than his stated age. He hygiene and grooming is fair today. Dressed in hospital scrubs. He makes eye contact. Patient is observed with improved cognition and has more linear thinking. Speech: Spontaneous, conversant, normal rate, tone and volume Language skills are improving Thought processes including: reports mild depression, anxiety due to continued hospitalization he denies suicidal/homicidal ideation. More linear thinking, goal oriented Thought content: anxiety, irritability Abstract reasoning, and computation: improving Description of associations: None Description of abnormal or psychotic thoughts: none observed Judgment: fair Insight: fair Orientation: alert and oriented to person, place, and situation. Recent and remote memory: improving Attention span and concentration: improving Language: improving Fund of knowledge: improving Mood: irritable Affect: congruent DIAGNOSES: 1. 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 Methamphetamine Use Disorder 5. Methamphetamine Induced Psychosis ASSESSMENT: Patient is placed on Q 15 minute observations and is improving considerably. Patient spoke to his and appeared very frustrated on the phone. He believed her to be coming to the hospital yesterday to see him. He appeared to confabulate during his phone conversation with her. I reinforced with the patient that he is not ready for discharge. He is improving but according to patient registration specialist patient was out in the hallway and was naked from his waist down, he had told staff that he was very hot. He was asked staff what time it was and he was irritable to find out that it was earlier that he thought. The past two days patient has been observed with more irritability and agitation. In today's interview he complains of other peers on the unit and states, "I want to punch that one mohini into the ground" MANAGEMENT PLAN: Patient is on ALC status. At this time patient is improving considerably and we will ask his family to come see him to assess his cognitive level and improvement in the near future. It does appear that patient has poor sleep and has moderate confusion at night. TIME SPENT: 30 minutes. Vital Signs Vital Signs Date Time Temp Pulse Resp B/P (MAP) Pulse Ox O2 Delivery O2 Flow Rate FiO2 04/28/20 06:56 97.2 108 18 135/85 (102) Room Air 04/24/20 06:37 97 Current Medications Current Medications Medications (Trade) Dose Ordered Sig/Risa Route PRN Reason Start Time Stop Time Status Last Admin Dose Admin Acetaminophen (Tylenol Tab) 650 mg Q6HP PRN PO HEADACHE or DISCOMFORT 03/23/20 11:30 04/25/20 21:52 Al Hydrox/Mg Hydrox/Simethicone (Mylanta) 30 ml Q4HP PRN PO HEARTBURN/INDIGESTION 03/23/20 11:30 Cetylpyridinium Chloride (Cepacol) 1 joseph Q4HP PRN PO COUGH 04/14/20 13:00 Cetylpyridinium Chloride (Cepacol) 1 joseph Q8HP PRN PO SORE THROAT 03/24/20 23:30 04/14/20 13:00 DC 04/01/20 10:47 Diphenhydramine HCl (Benadryl) 25 mg Q6H PO 03/25/20 18:00 03/25/20 16:39 DC Diphenhydramine HCl (Benadryl) 25 mg Q6HP PRN PO ITCHING 03/25/20 16:45 04/12/20 09:10 DC 03/29/20 01:08 Diphenhydramine HCl (Benadryl) 50 mg QHSP PRN PO INSOMNIA 03/29/20 11:15 04/12/20 09:10 DC 04/11/20 20:42 Folic Acid (Folic Acid) 1 mg DAILY PO 03/27/20 09:00 04/24/20 14:18 DC 04/24/20 08:41 Folic Acid (Folic Acid) 1 mg DAILY PO 03/28/20 09:00 03/28/20 08:21 DC Haloperidol (Haldol) 5 mg BID PO 03/29/20 09:00 04/07/20 14:17 DC 04/07/20 09:38 Haloperidol (Haldol) 5 mg QHS PO 04/07/20 21:00 04/10/20 11:37 DC 04/09/20 21:41 Lidocaine (Lidoderm Patch) 1 patch DAILY TD 03/28/20 09:00 04/28/20 11:10 Lorazepam (Ativan) 0.5 mg TID PO 03/28/20 09:00 04/03/20 08:53 DC 04/02/20 20:52 Lorazepam (Ativan) 1 mg BID PO 04/18/20 21:00 04/19/20 12:59 DC 04/19/20 08:36 Lorazepam (Ativan) 1 mg Q8HP PRN PO ANXIETY 04/12/20 09:15 04/24/20 20:33 Lorazepam (Ativan) 1 mg TID PO 04/03/20 09:00 04/12/20 09:10 DC 04/12/20 08:07 Lorazepam (Ativan) 2 mg STAT STAT PO 03/23/20 15:24 03/23/20 15:25 DC 03/23/20 15:27 Magnesium Hydroxide (Milk Of Magnesia) 30 ml DAILYPRN PRN PO CONSTIPATION 03/23/20 11:30 Miscellaneous (Unresolved Clarification Entry) SEE LABEL COMMENTS DAILY XX 04/09/20 09:00 04/09/20 17:00 DC Miscellaneous (Unresolved Clarification Entry) SEE LABEL COMMENTS DAILY XX 04/23/20 09:00 04/23/20 13:05 DC Multivitamins (Theragram-M) 1 tab DAILY PO 03/28/20 09:00 04/28/20 11:09 Nicotine (Nicoderm Cq 21mg) 1 patch DAILY TD 04/24/20 14:00 04/28/20 11:10 Non-Formulary Medication ( See Comment Field Below ) 1 DAILY@ XX 03/27/20 21:00 04/27/20 20:49 Non-Formulary Medication ( See Comment Field Below ) REMOVE LIDODERM PATCH DAILY@21 XX 03/27/20 21:00 UNV Olanzapine (ZyPREXA ZYDIS) 5 mg BID PO 03/23/20 09:00 03/29/20 11:14 DC 03/29/20 08:52 Olanzapine (ZyPREXA ZYDIS) 5 mg Q4HP PRN PO ANXIETY/AGITATION 03/23/20 11:30 04/28/20 02:22 Phenol (Chloraseptic [place]) 1 spray Q12HP PRN MT SORE THROAT 03/25/20 04:00 04/14/20 12:57 DC 03/31/20 09:10 Quetiapine Fumarate (SEROquel) 50 mg QAM PO 04/20/20 09:00 04/28/20 11:09 Quetiapine Fumarate (SEROquel) 100 mg QHS PO 04/18/20 21:00 04/19/20 08:41 DC 04/18/20 21:01 Quetiapine Fumarate (SEROquel) 200 mg QHS PO 04/19/20 21:00 04/27/20 20:48 Ropinirole HCl (Requip) 0.125 mg QHS PO 04/25/20 21:00 04/27/20 20:48 Thiamine HCl (Thiamine HCl) 100 mg DAILY PO 03/28/20 09:00 04/25/20 08:16 DC 04/24/20 08:41 Trazodone HCl (Desyrel) 50 mg QHSP PRN PO INSOMNIA 03/23/20 11:30 03/29/20 11:14 DC 03/28/20 20:11 Trazodone HCl (Desyrel) 50 mg QHSP PRN PO INSOMNIA 04/12/20 11:45 04/17/20 12:20 DC 04/16/20 20:04 Trazodone HCl (Desyrel) 100 mg QHS PO 04/17/20 21:00 04/18/20 09:03 DC 04/17/20 20:17 Allergies Coded Allergies: No Known Allergies (Verified Allergy, Unknown, 03/19/20) WAN MEJIA NP Apr 28, 2020 12:35
[2020-04-28] MEDS: ACETAMINOPHEN TAB 650MG DOSE (2X325MG) PO PRN (13:55)
[2020-04-28] MEDS: LORazepam 1 MG TAB PO PRN (14:28)
[2020-04-28 16:09] VITALS: BP 140/86
[2020-04-28 16:10] VITALS: BP 116/56
[2020-04-28] MEDS: QUEtiapine FUMARATE 200 MG TAB PO SCH (20:20)
[2020-04-28] MEDS: rOPINIRole 0.25 MG TAB(REQUIP) PO SCH (20:21)
[2020-04-28] MEDS: **NOTE PATIENT COMMENT** MISC XX SCH (20:21)
[2020-04-29 06:15] VITALS: BP 148/90
[2020-04-29] MEDS: MULTIVITAMINS/MINERALS THERAP 1 TAB PO SCH (09:35)
[2020-04-29] MEDS: LIDOCAINE 5% (LIDODERM) PATCH TD SCH (09:35)
[2020-04-29] MEDS: QUEtiapine FUMARATE 50 MG TAB PO SCH (09:35)
[2020-04-29] MEDS: NICOTINE 21MG/24HR 1 EA TRANSDERMAL TD SCH (09:35)
[2020-04-29 16:13] VITALS: BP 127/75
[2020-04-29] MEDS: rOPINIRole 0.25 MG TAB(REQUIP) PO SCH (21:11)
[2020-04-29] MEDS: QUEtiapine FUMARATE 200 MG TAB PO SCH (21:11)
[2020-04-29] MEDS: **NOTE PATIENT COMMENT** MISC XX SCH (21:11)
[2020-04-29] MEDS: ACETAMINOPHEN TAB 650MG DOSE (2X325MG) PO PRN (22:26)
[2020-04-30 06:23] VITALS: BP 122/84
[2020-04-30] MEDS: LIDOCAINE 5% (LIDODERM) PATCH TD SCH (09:39)
[2020-04-30] MEDS: NICOTINE 21MG/24HR 1 EA TRANSDERMAL TD SCH (09:40)
[2020-04-30] MEDS: MULTIVITAMINS/MINERALS THERAP 1 TAB PO SCH (09:40)
[2020-04-30] MEDS: QUEtiapine FUMARATE 50 MG TAB PO SCH (09:40)
[2020-04-30 16:13] VITALS: BP 138/82
[2020-04-30] MEDS: rOPINIRole 0.25 MG TAB(REQUIP) PO SCH (20:06)
[2020-04-30] MEDS: QUEtiapine FUMARATE 200 MG TAB PO SCH (20:06)
[2020-04-30] MEDS: **NOTE PATIENT COMMENT** MISC XX SCH (20:16)
[2020-05-01 06:29] VITALS: BP 129/76
[2020-05-01] MEDS: LIDOCAINE 5% (LIDODERM) PATCH TD SCH (08:40)
[2020-05-01] MEDS: NICOTINE 21MG/24HR 1 EA TRANSDERMAL TD SCH (08:41)
[2020-05-01] MEDS: QUEtiapine FUMARATE 50 MG TAB PO SCH (08:41)
[2020-05-01] MEDS: MULTIVITAMINS/MINERALS THERAP 1 TAB PO SCH (08:41)
--- NOTE | 2020-05-01 12:23 | MHIPNPDOC ---
[facility] Progress Note Progress Note DATE OF SERVICE: 05/01/20 HISTORY: Patient is a 64 year old , Domiciled, Male who has been in [facility] since 03/23/20 for psychotic symptoms and delirium for what may have been a stimulant (Zuleima) intoxication. He was admitted on medical for altered mental status and was subsequently admitted to [facility] for continued delirium symptoms. At that time, patient displayed both psychotic and delirium symptoms, he was restless and had severe psychomotor agitation and dyskinesia. Within the past 2 weeks, patient has improved. His cognition, attention, and memory has improved. He continues to have episodes of confusion during the day. VITAL SIGNS: See below. NEW TEST RESULTS: CURRENT MEDICATIONS: See below. MENTAL STATUS EXAMINATION: Patient is a 64-year old male, who is admitted to [facility] for altered mental status, delirium symptoms and confusion. He appears older than his stated age. His hygiene and grooming is fair today. Dressed in hospital scrubs. He makes eye contact. Patient is observed with improved cognition and has more linear t hinking. Speech: Spontaneous, conversant, normal rate, tone and volume Language skills are improving Thought processes including: More linear thinking, goal oriented Thought content: irritability Abstract reasoning, and computation: fair Description of associations: None Description of abnormal or psychotic thoughts: none observed Judgment: fair Insight: fair Orientation: alert and oriented to person, place, and situation. Recent and remote memory: fair Attention span and concentration: fair Language: expansive Fund of knowledge: good Mood: irritable Affect: congruent DIAGNOSES: 1. 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 Methamphetamine Use Disorder 5. Methamphetamine Induced Psychosis ASSESSMENT: Patient is placed on Q 15 minute observations and is improving considerably. Patient spoke to his and mildly frustrated on the phone. She explains that at this time, she is working on his discharge/ Patients memory is improving remembering my name. Patient can be discharged when he has a safe discharge. At this time, who has been estranged from patient and has been instrumental in his treatment is willing to take patient, but due to her mothers recent she is due to go to [place] for her . Due to increased COVID cases in [place], her mothers was pushed back several weeks. She is willing to take the patient once she returns from [place]. We are attempting to find other family members who may be willing to accept him to their home. Due to his long convalescent and his continued episodes of confusion I feel that it is necessary that he be discharged to family who can supervise him. I also feel that patient should be prohibited from driving until he can be seen by his primary care provider to determine his ability to safely perform his ability to drive. Patient exhibits confusion during interview. He was describing his ex- girlfriend Jasmina Freedman is in love with Ezra Constantino. She wears her hair crazy, in deandra and colors it with pastels. You dont want to meet her, she is all over the place. Patient is displaying some confusion as he is describing another peer on the unit and this is not his girlfriend. MANAGEMENT PLAN: Patient is on ALC status. At this time patient is improving considerably and we will ask his family to help with a safe discharge plan. TIME SPENT: 20 minutes. Vital Signs Vital Signs Date Time Temp Pulse Resp B/P (MAP) Pulse Ox O2 Delivery O2 Flow Rate FiO2 05/01/20 06:29 98.0 96 16 129/76 (93) 100 Room Air Current Medications Current Medications Medications (Trade) Dose Ordered Sig/Risa Route PRN Reason Start Time Stop Time Status Last Admin Dose Admin Acetaminophen (Tylenol Tab) 650 mg Q6HP PRN PO HEADACHE or DISCOMFORT 03/23/20 11:30 04/29/20 22:26 Al Hydrox/Mg Hydrox/Simethicone (Mylanta) 30 ml Q4HP PRN PO HEARTBURN/INDIGESTION 03/23/20 11:30 Artificial Tears ([place] Tears) 2 drop QIDP PRN OU DRY EYES 05/01/20 10:00 Cetylpyridinium Chloride (Cepacol) 1 joseph Q4HP PRN PO COUGH 04/14/20 13:00 Cetylpyridinium Chloride (Cepacol) 1 joseph Q8HP PRN PO SORE THROAT 03/24/20 23:30 04/14/20 13:00 DC 04/01/20 10:47 Diphenhydramine HCl (Benadryl) 25 mg Q6H PO 03/25/20 18:00 03/25/20 16:39 DC Diphenhydramine HCl (Benadryl) 25 mg Q6HP PRN PO ITCHING 03/25/20 16:45 04/12/20 09:10 DC 03/29/20 01:08 Diphenhydramine HCl (Benadryl) 50 mg QHSP PRN PO INSOMNIA 03/29/20 11:15 04/12/20 09:10 DC 04/11/20 20:42 Folic Acid (Folic Acid) 1 mg DAILY PO 03/27/20 09:00 04/24/20 14:18 DC 04/24/20 08:41 Folic Acid (Folic Acid) 1 mg DAILY PO 03/28/20 09:00 03/28/20 08:21 DC Haloperidol (Haldol) 5 mg BID PO 03/29/20 09:00 04/07/20 14:17 DC 04/07/20 09:38 Haloperidol (Haldol) 5 mg QHS PO 04/07/20 21:00 04/10/20 11:37 DC 04/09/20 21:41 Lidocaine (Lidoderm Patch) 1 patch DAILY TD 03/28/20 09:00 05/01/20 08:40 Lorazepam (Ativan) 0.5 mg TID PO 03/28/20 09:00 04/03/20 08:53 DC 04/02/20 20:52 Lorazepam (Ativan) 1 mg BID PO 04/18/20 21:00 04/19/20 12:59 DC 04/19/20 08:36 Lorazepam (Ativan) 1 mg Q8HP PRN PO ANXIETY 04/12/20 09:15 04/28/20 14:28 Lorazepam (Ativan) 1 mg TID PO 04/03/20 09:00 04/12/20 09:10 DC 04/12/20 08:07 Lorazepam (Ativan) 2 mg STAT STAT PO 03/23/20 15:24 03/23/20 15:25 DC 03/23/20 15:27 Magnesium Hydroxide (Milk Of Magnesia) 30 ml DAILYPRN PRN PO CONSTIPATION 03/23/20 11:30 Miscellaneous (Unresolved Clarification Entry) SEE LABEL COMMENTS DAILY XX 04/09/20 09:00 04/09/20 17:00 DC Miscellaneous (Unresolved Clarification Entry) SEE LABEL COMMENTS DAILY XX 04/23/20 09:00 04/23/20 13:05 DC Multivitamins (Theragram-M) 1 tab DAILY PO 03/28/20 09:00 05/01/20 08:41 Nicotine (Nicoderm Cq 21mg) 1 patch DAILY TD 04/24/20 14:00 05/01/20 08:41 Non-Formulary Medication ( See Comment Field Below ) 1 DAILY@21 XX 03/27/20 21:00 04/30/20 20:16 Non-Formulary Medication ( See Comment Field Below ) REMOVE LIDODERM PATCH DAILY@ XX 03/27/20 21:00 UNV Olanzapine (ZyPREXA ZYDIS) 5 mg BID PO 03/23/20 09:00 03/29/20 11:14 DC 03/29/20 08:52 Olanzapine (ZyPREXA ZYDIS) 5 mg Q4HP PRN PO ANXIETY/AGITATION 03/23/20 11:30 04/28/20 02:22 Phenol (Chloraseptic [place]) 1 spray Q12HP PRN MT SORE THROAT 03/25/20 04:00 04/14/20 12:57 DC 03/31/20 09:10 Quetiapine Fumarate (SEROquel) 50 mg QAM PO 04/20/20 09:00 05/01/20 08:41 Quetiapine Fumarate (SEROquel) 100 mg QHS PO 04/18/20 21:00 04/19/20 08:41 DC 04/18/20 21:01 Quetiapine Fumarate (SEROquel) 200 mg QHS PO 04/19/20 21:00 04/30/20 20:06 Ropinirole HCl (Requip) 0.125 mg QHS PO 04/25/20 21:00 04/30/20 20:06 Thiamine HCl (Thiamine HCl) 100 mg DAILY PO 03/28/20 09:00 04/25/20 08:16 DC 04/24/20 08:41 Trazodone HCl (Desyrel) 50 mg QHSP PRN PO INSOMNIA 03/23/20 11:30 03/29/20 11:14 DC 03/28/20 20:11 Trazodone HCl (Desyrel) 50 mg QHSP PRN PO INSOMNIA 04/12/20 11:45 04/17/20 12:20 DC 04/16/20 20:04 Trazodone HCl (Desyrel) 100 mg QHS PO 04/17/20 21:00 04/18/20 09:03 DC 04/17/20 20:17 Allergies Coded Allergies: No Known Allergies (Verified Allergy, Unknown, 03/19/20) WAN MEJIA NP May 01, 2020 12:23
[2020-05-01] MEDS: POLYVINYL ALCOHOL OPHTH SOLN 15 ML(LIQUITEARS) OU PRN (13:13)
[2020-05-01 17:43] VITALS: BP 132/82
[2020-05-01] MEDS: QUEtiapine FUMARATE 200 MG TAB PO SCH (20:31)
[2020-05-01] MEDS: rOPINIRole 0.25 MG TAB(REQUIP) PO SCH (20:31)
[2020-05-01] MEDS: **NOTE PATIENT COMMENT** MISC XX SCH (21:00)
[2020-05-01] MEDS: LORazepam 1 MG TAB PO PRN (21:56)
[2020-05-02] MEDS: MULTIVITAMINS/MINERALS THERAP 1 TAB PO SCH (09:37)
[2020-05-02] MEDS: QUEtiapine FUMARATE 50 MG TAB PO SCH (09:37)
[2020-05-02] MEDS: NICOTINE 21MG/24HR 1 EA TRANSDERMAL TD SCH (09:38)
[2020-05-02] MEDS: LIDOCAINE 5% (LIDODERM) PATCH TD SCH (09:38)
--- NOTE | 2020-05-02 12:03 | MHIPNPDOC ---
[facility] Progress Note Progress Note DATE OF SERVICE: 05/02/20 HISTORY: Patient is a 64 year old , Domiciled, Male who has been in [facility] since 03/23/20 for psychotic symptoms and delirium for what may have been a stimulant (Zuleima) intoxication. He was admitted on medical for altered mental status and was subsequently admitted to [facility] for continued delirium symptoms. At that time, patient displayed both psychotic and delirium symptoms, he was restless and had severe psychomotor agitation and dyskinesia. Within the past 2 weeks, patient has improved. His cognition, attention, and memory has improved. He continues to have episodes of confusion during the day. VITAL SIGNS: See below. NEW TEST RESULTS: CURRENT MEDICATIONS: See below. MENTAL STATUS EXAMINATION: Patient is a 64-year old male, who is admitted to [facility] for altered mental status, delirium symptoms and confusion. He appears older than his stated age. His hygiene and grooming is fair today. Dressed in hospital scrubs. He makes eye contact. Patient is observed with improved cognition and has more linear t hinking. Speech: Spontaneous, conversant, normal rate, tone and volume Language skills are improving Thought processes including: More linear thinking, goal oriented Thought content: moderate irritability Abstract reasoning, and computation: fair Description of associations: None Description of abnormal or psychotic thoughts: none observed Judgment: fair Insight: fair Orientation: alert and oriented to person, place, and situation. Recent and remote memory: fair Attention span and concentration: fair Language: expansive Fund of knowledge: good Mood: irritable, mildly agitated Affect: congruent DIAGNOSES: 1. 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 Methamphetamine Use Disorder 5. Methamphetamine Induced Psychosis ASSESSMENT: Patient is placed on Q 15 minute observations and is improving considerably. Patient spoke to his and moderately frustrated on the phone. He asks his why he has to wait until Friday for his discharge. Patient exhibits confusion during interview. He was describing his ex-girlfriend Jasmina If Jasmina leaves here, before I do, I am suing this place. He states that Jasmina (who is a peer on the unit, and he believes her to be his ex-girlfriend Jasmina) is not ready and he does not want her to be discharged before he does. States, I would have thought that she would have found her way home by now. Patient is very upset that that there is a risk that his girlfriend Jasmina Blas will be leaving. He wants to know when Jasmina is leaving. Reinforced with patient that I cannot speak of other patients, he states I dont know why this admission is taking so long, it didnt take that long the last time. According to his , patient believes that he has been hospitalized twice. While patient does show significant improvement, he does have memory losses. He has many instances of time that he cannot remember, he confuses people and situations. He is observed to confabulate some of his explanations with his on the phone. I have spoken to the patient, that I highly recommend that he does not drive until he is determined by his family care provider and family to be safe to return to driving motorized vehicles. MANAGEMENT PLAN: At this time patient is improving considerably and we will ask his family to help with a safe discharge plan. I have spoken with patients about his confusion and memory loss. I reinforced that she will find that his memory issue may still be significant but that I do not feel that this is contingent on his continued stay on [facility]. She verbalized understanding that patient does not pose a danger to himself or others. They are asking to discharge him on Friday. TIME SPENT: 20 minutes. Vital Signs Vital Signs Date Time Temp Pulse Resp B/P (MAP) Pulse Ox O2 Delivery O2 Flow Rate FiO2 05/01/20 17:43 99.9 97 16 132/82 (99) 99 Room Air Current Medications Current Medications Medications (Trade) Dose Ordered Sig/Risa Route PRN Reason Start Time Stop Time Status Last Admin Dose Admin Acetaminophen (Tylenol Tab) 650 mg Q6HP PRN PO HEADACHE or DISCOMFORT 03/23/20 11:30 04/29/20 22:26 Al Hydrox/Mg Hydrox/Simethicone (Mylanta) 30 ml Q4HP PRN PO HEARTBURN/INDIGESTION 03/23/20 11:30 Artificial Tears (Akwa Tears) 2 drop QIDP PRN OU DRY EYES 05/01/20 10:00 05/01/20 13:13 Cetylpyridinium Chloride (Cepacol) 1 joseph Q4HP PRN PO COUGH 04/14/20 13:00 Cetylpyridinium Chloride (Cepacol) 1 joseph Q8HP PRN PO SORE THROAT 03/24/20 23:30 04/14/20 13:00 DC 04/01/20 10:47 Diphenhydramine HCl (Benadryl) 25 mg Q6H PO 03/25/20 18:00 03/25/20 16:39 DC Diphenhydramine HCl (Benadryl) 25 mg Q6HP PRN PO ITCHING 03/25/20 16:45 04/12/20 09:10 DC 03/29/20 01:08 Diphenhydramine HCl (Benadryl) 50 mg QHSP PRN PO INSOMNIA 03/29/20 11:15 04/12/20 09:10 DC 04/11/20 20:42 Folic Acid (Folic Acid) 1 mg DAILY PO 03/27/20 09:00 04/24/20 14:18 DC 04/24/20 08:41 Folic Acid (Folic Acid) 1 mg DAILY PO 03/28/20 09:00 03/28/20 08:21 DC Haloperidol (Haldol) 5 mg BID PO 03/29/20 09:00 04/07/20 14:17 DC 04/07/20 09:38 Haloperidol (Haldol) 5 mg QHS PO 04/07/20 21:00 04/10/20 11:37 DC 04/09/20 21:41 Lidocaine (Lidoderm Patch) 1 patch DAILY TD 03/28/20 09:00 05/02/20 09:38 Lorazepam (Ativan) 0.5 mg TID PO 03/28/20 09:00 04/03/20 08:53 DC 04/02/20 20:52 Lorazepam (Ativan) 1 mg BID PO 04/18/20 21:00 04/19/20 12:59 DC 04/19/20 08:36 Lorazepam (Ativan) 1 mg Q8HP PRN PO ANXIETY 04/12/20 09:15 05/01/20 21:56 Lorazepam (Ativan) 1 mg TID PO 04/03/20 09:00 04/12/20 09:10 DC 04/12/20 08:07 Lorazepam (Ativan) 2 mg STAT STAT PO 03/23/20 15:24 03/23/20 15:25 DC 03/23/20 15:27 Magnesium Hydroxide (Milk Of Magnesia) 30 ml DAILYPRN PRN PO CONSTIPATION 03/23/20 11:30 Miscellaneous (Unresolved Clarification Entry) SEE LABEL COMMENTS DAILY XX 04/09/20 09:00 04/09/20 17:00 DC Miscellaneous (Unresolved Clarification Entry) SEE LABEL COMMENTS DAILY XX 04/23/20 09:00 04/23/20 13:05 DC Multivitamins (Theragram-M) 1 tab DAILY PO 03/28/20 09:00 05/02/20 09:37 Nicotine (Nicoderm Cq 21mg) 1 patch DAILY TD 04/24/20 14:00 05/02/20 09:38 Non-Formulary Medication ( See Comment Field Below ) 1 DAILY@ XX 03/27/20 21:00 04/30/20 20:16 Non-Formulary Medication ( See Comment Field Below ) REMOVE LIDODERM PATCH DAILY@21 XX 03/27/20 21:00 UNV Olanzapine (ZyPREXA ZYDIS) 5 mg BID PO 03/23/20 09:00 03/29/20 11:14 DC 03/29/20 08:52 Olanzapine (ZyPREXA ZYDIS) 5 mg Q4HP PRN PO ANXIETY/AGITATION 03/23/20 11:30 04/28/20 02:22 Phenol (Chloraseptic [place]) 1 spray Q12HP PRN MT SORE THROAT 03/25/20 04:00 04/14/20 12:57 DC 03/31/20 09:10 Quetiapine Fumarate (SEROquel) 50 mg QAM PO 04/20/20 09:00 05/02/20 09:37 Quetiapine Fumarate (SEROquel) 100 mg QHS PO 04/18/20 21:00 04/19/20 08:41 DC 04/18/20 21:01 Quetiapine Fumarate (SEROquel) 200 mg QHS PO 04/19/20 21:00 05/01/20 20:31 Ropinirole HCl (Requip) 0.125 mg QHS PO 04/25/20 21:00 05/01/20 20:31 Thiamine HCl (Thiamine HCl) 100 mg DAILY PO 03/28/20 09:00 04/25/20 08:16 DC 04/24/20 08:41 Trazodone HCl (Desyrel) 50 mg QHSP PRN PO INSOMNIA 03/23/20 11:30 03/29/20 11:14 DC 03/28/20 20:11 Trazodone HCl (Desyrel) 50 mg QHSP PRN PO INSOMNIA 04/12/20 11:45 04/17/20 12:20 DC 04/16/20 20:04 Trazodone HCl (Desyrel) 100 mg QHS PO 04/17/20 21:00 04/18/20 09:03 DC 04/17/20 20:17 Allergies Coded Allergies: No Known Allergies (Verified Allergy, Unknown, 03/19/20) WAN MEJIA NP May 02, 2020 12:03
[2020-05-02] MEDS: LORazepam 1 MG TAB PO PRN (13:57)
[2020-05-02 18:03] VITALS: BP 130/86
[2020-05-02] MEDS: OLANZapine ORAL DISINTEGRATING TAB 5MG PO PRN (18:15)
[2020-05-02] MEDS: QUEtiapine FUMARATE 200 MG TAB PO SCH (20:10)
[2020-05-02] MEDS: rOPINIRole 0.25 MG TAB(REQUIP) PO SCH (20:11)
[2020-05-02] MEDS: **NOTE PATIENT COMMENT** MISC XX SCH (20:12)
[2020-05-03 06:55] VITALS: BP 159/88
[2020-05-03] MEDS: NICOTINE 21MG/24HR 1 EA TRANSDERMAL TD SCH (08:54)
[2020-05-03] MEDS: QUEtiapine FUMARATE 50 MG TAB PO SCH (08:54)
[2020-05-03] MEDS: LIDOCAINE 5% (LIDODERM) PATCH TD SCH (08:54)
[2020-05-03] MEDS: MULTIVITAMINS/MINERALS THERAP 1 TAB PO SCH (08:54)
[2020-05-03] MEDS: POLYVINYL ALCOHOL OPHTH SOLN 15 ML(LIQUITEARS) OU PRN (08:57)
[2020-05-03] MEDS ORDERED: PILL CUTTER 1 EACH XX PRN (09:45)
--- NOTE | 2020-05-03 15:17 | MHIPN ---
DATE: 03/25/2020 HISTORY OF PRESENT ILLNESS: The patient today remains the same. He continues to be confused, appears to be delusional. Presently he just mumbles; it is almost inaudible at times. I cannot get any information from him. MENTAL STATUS EXAM: Unable to complete. DIAGNOSES: * Unspecified psychosis. * Rule out delirium. * Rule out stimulant intoxication. TREATMENT PLAN: We will continue to monitor this patient who remains actively psychotic and confused at this point and really unable to communicate and we will adjust medications as indicated. TOD
--- NOTE | 2020-05-03 15:19 | MHIPN ---
DATE: 03/26/2020 SUBJECTIVE: The patient continues to be the same. He still mumbles. His speech is basically inaudible most of the time. MENTAL STATUS EXAM: Unable to complete. DIAGNOSIS: Unspecified psychosis. TREATMENT PLAN: At this point the patient continues to be confused. We will continue the current treatment. Apparently he is on Zyprexa and hopefully will respond to this. TOD
--- NOTE | 2020-05-03 16:04 | MHIPNPDOC ---
[facility] Progress Note Progress Note DATE OF SERVICE: 05/03/20 HISTORY: Patient is a 64 year old , Domiciled, Male who has been in [facility] since 03/23/20 for psychotic symptoms and delirium for what may have been a stimulant (Zuleima) intoxication. He was admitted on medical for altered mental status and was subsequently admitted to [facility] for continued delirium symptoms. At that time, patient displayed both psychotic and delirium symptoms, he was restless and had severe psychomotor agitation and dyskinesia. Within the past 2 weeks, patient has improved. His cognition, attention, and memory has improved. He continues to have episodes of confusion during the day. VITAL SIGNS: See below. NEW TEST RESULTS: CURRENT MEDICATIONS: See below. MENTAL STATUS EXAMINATION: Patient is a 64-year old male, who is admitted to [facility] for altered mental status, delirium symptoms and confusion. He appears older than his stated age. His hygiene and grooming is fair today. Dressed in hospital scrubs. He makes eye contact. Patient is observed with improved cognition and has more linear t hinking. Speech: Spontaneous, conversant, normal rate, tone and volume Language skills are improving Thought processes including: More linear thinking, goal oriented Thought content: moderate irritability Abstract reasoning, and computation: fair Description of associations: None Description of abnormal or psychotic thoughts: none observed Judgment: fair Insight: fair Orientation: alert and oriented to person, place, and situation. Recent and remote memory: fair Attention span and concentration: fair Language: expansive Fund of knowledge: good Mood: irritable, mildly agitated Affect: congruent DIAGNOSES: 1. 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 Methamphetamine Use Disorder 5. Methamphetamine Induced Psychosis ASSESSMENT: Patient is placed on Q 15 minute observations and is improving. He does display mild confusion and paranoia. Patient spoke to his and mild frustrated on the phone. Patient is observed with mild frustration because he states he does not have his number for his daughter Rosie which was given to him on 4 other occasions. He continues to believe that another peer on the unit is his friend Jasmina. He displays memory issues stating, "My thinks I had a relationship with Jasmina for 15 years, I have only been with her for 3-4 years" Patient also believes that his former girlfriend Jasmina is a peer on this unit. Patient is not observed with depression, anxiety, paranoia, aidee, delusions, obsessions, psychosis. He is however observed with mild confusion. At times during the day this confusion is increased. But throughout the day, patient is cooperative on the unit. Social with peers and taking his medications. does have concern that he will have agitation on discharge and we will medicate for this prior to his discharge. Son will be present during the weekend. I highly recommend that his family take action through the DMV to suspend his license until he can safely return to driving motorized vehicles. MANAGEMENT PLAN: Patient will be discharged Friday. TIME SPENT: 20 minutes. Vital Signs Vital Signs Date Time Temp Pulse Resp B/P (MAP) Pulse Ox O2 Delivery O2 Flow Rate FiO2 05/03/20 06:55 98.0 98 16 159/88 (111) 99 Room Air Current Medications Current Medications Medications (Trade) Dose Ordered Sig/Risa Route PRN Reason Start Time Stop Time Status Last Admin Dose Admin Acetaminophen (Tylenol Tab) 650 mg Q6HP PRN PO HEADACHE or DISCOMFORT 03/23/20 11:30 04/29/20 22:26 Al Hydrox/Mg Hydrox/Simethicone (Mylanta) 30 ml Q4HP PRN PO HEARTBURN/INDIGESTION 03/23/20 11:30 Artificial Tears (Akwa Tears) 2 drop QIDP PRN OU DRY EYES 05/01/20 10:00 05/03/20 08:57 Cetylpyridinium Chloride (Cepacol) 1 joseph Q4HP PRN PO COUGH 04/14/20 13:00 Cetylpyridinium Chloride (Cepacol) 1 joseph Q8HP PRN PO SORE THROAT 03/24/20 23:30 04/14/20 13:00 DC 04/01/20 10:47 Diphenhydramine HCl (Benadryl) 25 mg Q6H PO 03/25/20 18:00 03/25/20 16:39 DC Diphenhydramine HCl (Benadryl) 25 mg Q6HP PRN PO ITCHING 03/25/20 16:45 04/12/20 09:10 DC 03/29/20 01:08 Diphenhydramine HCl (Benadryl) 50 mg QHSP PRN PO INSOMNIA 03/29/20 11:15 04/12/20 09:10 DC 04/11/20 20:42 Folic Acid (Folic Acid) 1 mg DAILY PO 03/27/20 09:00 04/24/20 14:18 DC 04/24/20 08:41 Folic Acid (Folic Acid) 1 mg DAILY PO 03/28/20 09:00 03/28/20 08:21 DC Haloperidol (Haldol) 5 mg BID PO 03/29/20 09:00 04/07/20 14:17 DC 04/07/20 09:38 Haloperidol (Haldol) 5 mg QHS PO 04/07/20 21:00 04/10/20 11:37 DC 04/09/20 21:41 Lidocaine (Lidoderm Patch) 1 patch DAILY TD 03/28/20 09:00 05/03/20 08:54 Lorazepam (Ativan) 0.5 mg TID PO 03/28/20 09:00 04/03/20 08:53 DC 04/02/20 20:52 Lorazepam (Ativan) 1 mg BID PO 04/18/20 21:00 04/19/20 12:59 DC 04/19/20 08:36 Lorazepam (Ativan) 1 mg Q8HP PRN PO ANXIETY 04/12/20 09:15 05/02/20 13:57 Lorazepam (Ativan) 1 mg TID PO 04/03/20 09:00 04/12/20 09:10 DC 04/12/20 08:07 Lorazepam (Ativan) 2 mg STAT STAT PO 03/23/20 15:24 03/23/20 15:25 DC 03/23/20 15:27 Magnesium Hydroxide (Milk Of Magnesia) 30 ml DAILYPRN PRN PO CONSTIPATION 03/23/20 11:30 Miscellaneous (Unresolved Clarification Entry) SEE LABEL COMMENTS DAILY XX 04/09/20 09:00 04/09/20 17:00 DC Miscellaneous (Unresolved Clarification Entry) SEE LABEL COMMENTS DAILY XX 04/23/20 09:00 04/23/20 13:05 DC Multivitamins (Theragram-M) 1 tab DAILY PO 03/28/20 09:00 05/03/20 08:54 Nicotine (Nicoderm Cq 21mg) 1 patch DAILY TD 04/24/20 14:00 05/03/20 08:54 Non-Formulary Medication ( See Comment Field Below ) 1 DAILY@ XX 03/27/20 21:00 05/02/20 20:12 Non-Formulary Medication ( See Comment Field Below ) REMOVE LIDODERM PATCH DAILY@ XX 03/27/20 21:00 UNV Olanzapine (ZyPREXA ZYDIS) 5 mg BID PO 03/23/20 09:00 03/29/20 11:14 DC 03/29/20 08:52 Olanzapine (ZyPREXA ZYDIS) 5 mg Q4HP PRN PO ANXIETY/AGITATION 03/23/20 11:30 05/02/20 18:15 Phenol (Chloraseptic [place]) 1 spray Q12HP PRN MT SORE THROAT 03/25/20 04:00 04/14/20 12:57 DC 03/31/20 09:10 Quetiapine Fumarate (SEROquel) 50 mg QAM PO 04/20/20 09:00 05/03/20 08:54 Quetiapine Fumarate (SEROquel) 100 mg QHS PO 04/18/20 21:00 04/19/20 08:41 DC 04/18/20 21:01 Quetiapine Fumarate (SEROquel) 200 mg QHS PO 04/19/20 21:00 05/02/20 20:10 Ropinirole HCl (Requip) 0.125 mg QHS PO 04/25/20 21:00 05/02/20 20:11 Thiamine HCl (Thiamine HCl) 100 mg DAILY PO 03/28/20 09:00 04/25/20 08:16 DC 04/24/20 08:41 Trazodone HCl (Desyrel) 50 mg QHSP PRN PO INSOMNIA 03/23/20 11:30 03/29/20 11:14 DC 03/28/20 20:11 Trazodone HCl (Desyrel) 50 mg QHSP PRN PO INSOMNIA 04/12/20 11:45 04/17/20 12:20 DC 04/16/20 20:04 Trazodone HCl (Desyrel) 100 mg QHS PO 04/17/20 21:00 04/18/20 09:03 DC 04/17/20 20:17 Allergies Coded Allergies: No Known Allergies (Verified Allergy, Unknown, 03/19/20) WAN MEJIA NP May 03, 2020 16:04
[2020-05-03 17:23] VITALS: BP 154/78
[2020-05-03] MEDS: **NOTE PATIENT COMMENT** MISC XX SCH (20:09)
[2020-05-03] MEDS: QUEtiapine FUMARATE 200 MG TAB PO SCH (20:09)
[2020-05-03] MEDS: rOPINIRole 0.25 MG TAB(REQUIP) PO SCH (20:09)
[2020-05-03] MEDS: ACETAMINOPHEN TAB 650MG DOSE (2X325MG) PO PRN (22:10)
[2020-05-04 06:36] VITALS: BP 118/78
[2020-05-04] MEDS: NICOTINE 21MG/24HR 1 EA TRANSDERMAL TD SCH (10:09)
[2020-05-04] MEDS: LIDOCAINE 5% (LIDODERM) PATCH TD SCH (10:09)
[2020-05-04] MEDS: QUEtiapine FUMARATE 50 MG TAB PO SCH (10:10)
[2020-05-04] MEDS: MULTIVITAMINS/MINERALS THERAP 1 TAB PO SCH (10:10)
--- NOTE | 2020-05-04 13:07 | MHIPNPDOC ---
[facility] Progress Note Progress Note DATE OF SERVICE: 05/04/20 HISTORY: Patient is a 64 year old , Domiciled, Male who has been in [facility] since 03/23/20 for psychotic symptoms and delirium for what may have been a stimulant (Zuleima) intoxication. He was admitted on medical for altered mental status and was subsequently admitted to [facility] for continued delirium symptoms. At that time, patient displayed both psychotic and delirium symptoms, he was restless and had severe psychomotor agitation and dyskinesia. Within the past 2 weeks, patient has improved. His cognition, attention, and memory has improved. He continues to have episodes of confusion during the day. VITAL SIGNS: See below. NEW TEST RESULTS: CURRENT MEDICATIONS: See below. MENTAL STATUS EXAMINATION: Patient is a 64-year old male, who is admitted to [facility] for altered mental status, delirium symptoms and confusion. He appears older than his stated age. His hygiene and grooming is fair today. Dressed in hospital scrubs. He makes eye contact. Patient is observed with improved cognition and has more linear t hinking. Speech: Spontaneous, conversant, normal rate, tone and volume Language skills are intact Thought processes including: linear thinking, goal oriented Thought content: denies depression, anxiety, suicidal or homicidal ideation, no paranoias, no a/v hallucinations Abstract reasoning, and computation: fair Description of associations: None Description of abnormal or psychotic thoughts: none observed Judgment: fair Insight: fair Orientation: alert and oriented to person, place, and situation. Recent and remote memory: fair Attention span and concentration: fair Language: expansive Fund of knowledge: good Mood: euthymic Affect: congruent DIAGNOSES: 1. 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 Methamphetamine Use Disorder 5. Methamphetamine Induced Psychosis ASSESSMENT: Patient is placed on Q 15 minute observations and is improving considerably. Patient spoke to his and she feels his memory is improving remembering more and more everyday. Patient will be discharged on Friday. He appears bright mood and affect is bright as well MANAGEMENT PLAN: Discharge on Friday. TIME SPENT: 15 minutes. Vital Signs Vital Signs Date Time Temp Pulse Resp B/P (MAP) Pulse Ox O2 Delivery O2 Flow Rate FiO2 05/04/20 06:36 98.7 103 16 118/78 (91) 05/03/20 06:55 99 Room Air Current Medications Current Medications Medications (Trade) Dose Ordered Sig/Risa Route PRN Reason Start Time Stop Time Status Last Admin Dose Admin Acetaminophen (Tylenol Tab) 650 mg Q6HP PRN PO HEADACHE or DISCOMFORT 03/23/20 11:30 05/03/20 22:10 Al Hydrox/Mg Hydrox/Simethicone (Mylanta) 30 ml Q4HP PRN PO HEARTBURN/INDIGESTION 03/23/20 11:30 Artificial Tears (Akwa Tears) 2 drop QIDP PRN OU DRY EYES 05/01/20 10:00 05/03/20 08:57 Cetylpyridinium Chloride (Cepacol) 1 joseph Q4HP PRN PO COUGH 04/14/20 13:00 Cetylpyridinium Chloride (Cepacol) 1 joseph Q8HP PRN PO SORE THROAT 03/24/20 23:30 04/14/20 13:00 DC 04/01/20 10:47 Diphenhydramine HCl (Benadryl) 25 mg Q6H PO 03/25/20 18:00 03/25/20 16:39 DC Diphenhydramine HCl (Benadryl) 25 mg Q6HP PRN PO ITCHING 03/25/20 16:45 04/12/20 09:10 DC 03/29/20 01:08 Diphenhydramine HCl (Benadryl) 50 mg QHSP PRN PO INSOMNIA 03/29/20 11:15 04/12/20 09:10 DC 04/11/20 20:42 Folic Acid (Folic Acid) 1 mg DAILY PO 03/27/20 09:00 04/24/20 14:18 DC 04/24/20 08:41 Folic Acid (Folic Acid) 1 mg DAILY PO 03/28/20 09:00 03/28/20 08:21 DC Haloperidol (Haldol) 5 mg BID PO 03/29/20 09:00 04/07/20 14:17 DC 04/07/20 09:38 Haloperidol (Haldol) 5 mg QHS PO 04/07/20 21:00 04/10/20 11:37 DC 04/09/20 21:41 Lidocaine (Lidoderm Patch) 1 patch DAILY TD 03/28/20 09:00 05/04/20 10:09 Lorazepam (Ativan) 0.5 mg TID PO 03/28/20 09:00 04/03/20 08:53 DC 04/02/20 20:52 Lorazepam (Ativan) 1 mg BID PO 04/18/20 21:00 04/19/20 12:59 DC 04/19/20 08:36 Lorazepam (Ativan) 1 mg Q8HP PRN PO ANXIETY 04/12/20 09:15 05/02/20 13:57 Lorazepam (Ativan) 1 mg TID PO 04/03/20 09:00 04/12/20 09:10 DC 04/12/20 08:07 Lorazepam (Ativan) 2 mg STAT STAT PO 03/23/20 15:24 03/23/20 15:25 DC 03/23/20 15:27 Magnesium Hydroxide (Milk Of Magnesia) 30 ml DAILYPRN PRN PO CONSTIPATION 03/23/20 11:30 Miscellaneous (Unresolved Clarification Entry) SEE LABEL COMMENTS DAILY XX 04/09/20 09:00 04/09/20 17:00 DC Miscellaneous (Unresolved Clarification Entry) SEE LABEL COMMENTS DAILY XX 04/23/20 09:00 04/23/20 13:05 DC Multivitamins (Theragram-M) 1 tab DAILY PO 03/28/20 09:00 05/04/20 10:10 Nicotine (Nicoderm Cq 21mg) 1 patch DAILY TD 04/24/20 14:00 05/04/20 10:09 Non-Formulary Medication ( See Comment Field Below ) 1 DAILY@ XX 03/27/20 21:00 05/03/20 20:09 Non-Formulary Medication ( See Comment Field Below ) REMOVE LIDODERM PATCH DAILY@ XX 03/27/20 21:00 UNV Olanzapine (ZyPREXA ZYDIS) 5 mg BID PO 03/23/20 09:00 03/29/20 11:14 DC 03/29/20 08:52 Olanzapine (ZyPREXA ZYDIS) 5 mg Q4HP PRN PO ANXIETY/AGITATION 03/23/20 11:30 05/02/20 18:15 Phenol (Chloraseptic [place]) 1 spray Q12HP PRN MT SORE THROAT 03/25/20 04:00 04/14/20 12:57 DC 03/31/20 09:10 Quetiapine Fumarate (SEROquel) 50 mg QAM PO 04/20/20 09:00 05/04/20 10:10 Quetiapine Fumarate (SEROquel) 100 mg QHS PO 04/18/20 21:00 04/19/20 08:41 DC 04/18/20 21:01 Quetiapine Fumarate (SEROquel) 200 mg QHS PO 04/19/20 21:00 05/03/20 20:09 Ropinirole HCl (Requip) 0.125 mg QHS PO 04/25/20 21:00 05/03/20 20:09 Thiamine HCl (Thiamine HCl) 100 mg DAILY PO 03/28/20 09:00 04/25/20 08:16 DC 04/24/20 08:41 Trazodone HCl (Desyrel) 50 mg QHSP PRN PO INSOMNIA 03/23/20 11:30 03/29/20 11:14 DC 03/28/20 20:11 Trazodone HCl (Desyrel) 50 mg QHSP PRN PO INSOMNIA 04/12/20 11:45 04/17/20 12:20 DC 04/16/20 20:04 Trazodone HCl (Desyrel) 100 mg QHS PO 04/17/20 21:00 04/18/20 09:03 DC 04/17/20 20:17 Allergies Coded Allergies: No Known Allergies (Verified Allergy, Unknown, 03/19/20) WAN MEJIA NP May 04, 2020 13:07
[2020-05-04] MEDS: POLYVINYL ALCOHOL OPHTH SOLN 15 ML(LIQUITEARS) OU PRN (15:18)
[2020-05-04] MEDS: rOPINIRole 0.25 MG TAB(REQUIP) PO SCH (19:55)
[2020-05-04] MEDS: **NOTE PATIENT COMMENT** MISC XX SCH (19:56)
[2020-05-04] MEDS: QUEtiapine FUMARATE 200 MG TAB PO SCH (19:56)
[2020-05-04] MEDS: ACETAMINOPHEN TAB 650MG DOSE (2X325MG) PO PRN (20:41)
[2020-05-05 06:25] VITALS: BP 136/82
[2020-05-05] MEDS: POLYVINYL ALCOHOL OPHTH SOLN 15 ML(LIQUITEARS) OU PRN ×2 (06:48→21:11)
[2020-05-05] MEDS: MULTIVITAMINS/MINERALS THERAP 1 TAB PO SCH (09:40)
[2020-05-05] MEDS: LIDOCAINE 5% (LIDODERM) PATCH TD SCH (09:40)
[2020-05-05] MEDS: QUEtiapine FUMARATE 50 MG TAB PO SCH (09:40)
[2020-05-05] MEDS: NICOTINE 21MG/24HR 1 EA TRANSDERMAL TD SCH (09:40)
[2020-05-05] MEDS ORDERED: ATIV1TAB7 PO (11:31)
[2020-05-05] MEDS ORDERED: QUET200T2 PO (11:31)
[2020-05-05] MEDS ORDERED: REQU1TAB14 PO (11:31)
[2020-05-05] MEDS ORDERED: QUET5TAB PO (11:31)
--- NOTE | 2020-05-05 15:17 | MHIPNPDOC ---
[facility] Progress Note Progress Note DATE OF SERVICE: 05/05/20 HISTORY: Patient is a 64 year old , Domiciled, Male who has been in [facility] since 03/23/20 for psychotic symptoms and delirium for what may have been a stimulant (Zuleima) intoxication. He was admitted on medical for altered mental status and was subsequently admitted to [facility] for continued delirium symptoms. At that time, patient displayed both psychotic and delirium symptoms, he was restless and had severe psychomotor agitation and dyskinesia. Within the past 2 weeks, patient has improved. His cognition, attention, and memory has improved. He continues to have episodes of confusion during the day. VITAL SIGNS: See below. NEW TEST RESULTS: CURRENT MEDICATIONS: See below. MENTAL STATUS EXAMINATION: Patient is a 64-year old male, who is admitted to [facility] for altered mental status, delirium symptoms and confusion. He appears older than his stated age. His hygiene and grooming is fair today. Dressed in hospital scrubs. He makes eye contact. Patient is observed with improved cognition and has more linear t hinking. Speech: Spontaneous, conversant, normal rate, tone and volume Language skills are intact Thought processes including: linear thinking, goal oriented Thought content: denies depression, anxiety, suicidal or homicidal ideation, no paranoias, no a/v hallucinations Abstract reasoning, and computation: fair Description of associations: None Description of abnormal or psychotic thoughts: none observed Judgment: fair Insight: fair Orientation: alert and oriented to person, place, and situation. Recent and remote memory: fair Attention span and concentration: fair Language: expansive Fund of knowledge: good Mood: euthymic Affect: congruent DIAGNOSES: 1. 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 Methamphetamine Use Disorder 5. Methamphetamine Induced Psychosis ASSESSMENT: Patient is placed on Q 15 minute observations and is improving considerably. He appears bright mood and affect is bright. Patient spoke to his and she feels his memory is improving remembering more and more everyday. He is argumentative with his . He appears very frustrated when she tells him that he cannot leave today but will leave tomorrow. He is stable, family feels the same. All orders for discharge have been placed. for his tomorrow. I requested that patient be medicated with Lorazepam prior to his discharge - this was given to Katelyn. MANAGEMENT PLAN: Discharge on Friday. TIME SPENT: 20 minutes. Vital Signs Vital Signs Date Time Temp Pulse Resp B/P (MAP) Pulse Ox O2 Delivery O2 Flow Rate FiO2 05/05/20 06:25 97.5 95 14 136/82 (100) Room Air 05/03/20 06:55 99 Current Medications Current Medications Medications (Trade) Dose Ordered Sig/Risa Route PRN Reason Start Time Stop Time Status Last Admin Dose Admin Acetaminophen (Tylenol Tab) 650 mg Q6HP PRN PO HEADACHE or DISCOMFORT 03/23/20 11:30 05/04/20 20:41 Al Hydrox/Mg Hydrox/Simethicone (Mylanta) 30 ml Q4HP PRN PO HEARTBURN/INDIGESTION 03/23/20 11:30 Artificial Tears (Akwa Tears) 2 drop QIDP PRN OU DRY EYES 05/01/20 10:00 05/05/20 06:48 Cetylpyridinium Chloride (Cepacol) 1 joseph Q4HP PRN PO COUGH 04/14/20 13:00 Cetylpyridinium Chloride (Cepacol) 1 joseph Q8HP PRN PO SORE THROAT 03/24/20 23:30 04/14/20 13:00 DC 04/01/20 10:47 Diphenhydramine HCl (Benadryl) 25 mg Q6H PO 03/25/20 18:00 03/25/20 16:39 DC Diphenhydramine HCl (Benadryl) 25 mg Q6HP PRN PO ITCHING 03/25/20 16:45 04/12/20 09:10 DC 03/29/20 01:08 Diphenhydramine HCl (Benadryl) 50 mg QHSP PRN PO INSOMNIA 03/29/20 11:15 04/12/20 09:10 DC 04/11/20 20:42 Folic Acid (Folic Acid) 1 mg DAILY PO 03/27/20 09:00 04/24/20 14:18 DC 04/24/20 08:41 Folic Acid (Folic Acid) 1 mg DAILY PO 03/28/20 09:00 03/28/20 08:21 DC Haloperidol (Haldol) 5 mg BID PO 03/29/20 09:00 04/07/20 14:17 DC 04/07/20 09:38 Haloperidol (Haldol) 5 mg QHS PO 04/07/20 21:00 04/10/20 11:37 DC 04/09/20 21:41 Lidocaine (Lidoderm Patch) 1 patch DAILY TD 03/28/20 09:00 05/05/20 09:40 Lorazepam (Ativan) 0.5 mg TID PO 03/28/20 09:00 04/03/20 08:53 DC 04/02/20 20:52 Lorazepam (Ativan) 1 mg BID PO 04/18/20 21:00 04/19/20 12:59 DC 04/19/20 08:36 Lorazepam (Ativan) 1 mg Q8HP PRN PO ANXIETY 04/12/20 09:15 05/02/20 13:57 Lorazepam (Ativan) 1 mg TID PO 04/03/20 09:00 04/12/20 09:10 DC 04/12/20 08:07 Lorazepam (Ativan) 2 mg STAT STAT PO 03/23/20 15:24 03/23/20 15:25 DC 03/23/20 15:27 Magnesium Hydroxide (Milk Of Magnesia) 30 ml DAILYPRN PRN PO CONSTIPATION 03/23/20 11:30 Miscellaneous (Unresolved Clarification Entry) SEE LABEL COMMENTS DAILY XX 04/09/20 09:00 04/09/20 17:00 DC Miscellaneous (Unresolved Clarification Entry) SEE LABEL COMMENTS DAILY XX 04/23/20 09:00 04/23/20 13:05 DC Multivitamins (Theragram-M) 1 tab DAILY PO 03/28/20 09:00 05/05/20 09:40 Nicotine (Nicoderm Cq 21mg) 1 patch DAILY TD 04/24/20 14:00 05/05/20 09:40 Non-Formulary Medication ( See Comment Field Below ) 1 DAILY@ XX 03/27/20 21:00 05/04/20 19:56 Non-Formulary Medication ( See Comment Field Below ) REMOVE LIDODERM PATCH DAILY@ XX 03/27/20 21:00 UNV Olanzapine (ZyPREXA ZYDIS) 5 mg BID PO 03/23/20 09:00 03/29/20 11:14 DC 03/29/20 08:52 Olanzapine (ZyPREXA ZYDIS) 5 mg Q4HP PRN PO ANXIETY/AGITATION 03/23/20 11:30 05/02/20 18:15 Phenol (Chloraseptic [place]) 1 spray Q12HP PRN MT SORE THROAT 03/25/20 04:00 04/14/20 12:57 DC 03/31/20 09:10 Quetiapine Fumarate (SEROquel) 50 mg QAM PO 04/20/20 09:00 05/05/20 09:40 Quetiapine Fumarate (SEROquel) 100 mg QHS PO 04/18/20 21:00 04/19/20 08:41 DC 04/18/20 21:01 Quetiapine Fumarate (SEROquel) 200 mg QHS PO 04/19/20 21:00 05/04/20 19:56 Ropinirole HCl (Requip) 0.125 mg QHS PO 04/25/20 21:00 05/04/20 19:55 Thiamine HCl (Thiamine HCl) 100 mg DAILY PO 03/28/20 09:00 04/25/20 08:16 DC 04/24/20 08:41 Trazodone HCl (Desyrel) 50 mg QHSP PRN PO INSOMNIA 03/23/20 11:30 03/29/20 11:14 DC 03/28/20 20:11 Trazodone HCl (Desyrel) 50 mg QHSP PRN PO INSOMNIA 04/12/20 11:45 04/17/20 12:20 DC 04/16/20 20:04 Trazodone HCl (Desyrel) 100 mg QHS PO 04/17/20 21:00 04/18/20 09:03 DC 04/17/20 20:17 Allergies Coded Allergies: No Known Allergies (Verified Allergy, Unknown, 03/19/20) WAN MEJIA NP May 05, 2020 15:17
[2020-05-05] MEDS: **NOTE PATIENT COMMENT** MISC XX SCH (20:09)
[2020-05-05] MEDS: QUEtiapine FUMARATE 200 MG TAB PO SCH (20:09)
[2020-05-05] MEDS: rOPINIRole 0.25 MG TAB(REQUIP) PO SCH (20:09)
[2020-05-05] MEDS: ACETAMINOPHEN TAB 650MG DOSE (2X325MG) PO PRN (21:35)
[2020-05-05] MEDS: LORazepam 1 MG TAB PO PRN (21:56)
[2020-05-06 06:34] VITALS: BP 135/84
[2020-05-06] MEDS: NICOTINE 21MG/24HR 1 EA TRANSDERMAL TD SCH (08:16)
[2020-05-06] MEDS: LORazepam 1 MG TAB PO PRN (08:17)
[2020-05-06] MEDS: QUEtiapine FUMARATE 50 MG TAB PO SCH (08:17)
[2020-05-06] MEDS: MULTIVITAMINS/MINERALS THERAP 1 TAB PO SCH (08:17)
[2020-05-06] MEDS: LIDOCAINE 5% (LIDODERM) PATCH TD SCH (08:17)
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
== END 2020-05-06 09:03 | disposition home or self-care (01) | DRG 896 ==
LOC: M PSY 12:41
PROVIDERS: ADMIT Psychiatry & Neurology Addiction Medicine; ATTEND Psychiatry & Neurology Psychiatry
DX: F19.90 Other psychoactive substance use, unspecified, uncomplicated (principal); G92 Toxic encephalopathy; F05 Delirium due to known physiological condition; F17.200 Nicotine dependence, unspecified, uncomplicated; F15.90 Other stimulant use, unspecified, uncomplicated